=== PATIENT | female | born 1985 | race Two or more races ===

== ENCOUNTER 2020-06-20 12:01 | Outpatient (REF) | payer OTHER, SELFPAY | END 2020-06-20 12:02 | disposition home or self-care (01) | LOC: HO.LAB 12:01 | PROVIDERS: Visit Provider Internal Medicine | DX: Z20.822 Contact with and (suspected) exposure to COVID-19 (principal) | CPT/HCPCS: 36415; C9803; U0003; U0005 ==

== ENCOUNTER 2020-08-15 07:41 | Outpatient (REF) | payer OTHER, SELFPAY | END 2020-08-15 07:42 | disposition home or self-care (01) | LOC: HO.LAB 07:41 | PROVIDERS: Visit Provider Internal Medicine | DX: Z20.822 Contact with and (suspected) exposure to COVID-19 (principal) | CPT/HCPCS: 36415; C9803; U0003; U0005 ==

== ENCOUNTER 2020-09-28 09:10 | Outpatient (REF) | payer OTHER, SELFPAY ==
[2020-09-28 09:43] LABS: COVID-19 Test Negative (Negative); IDNOW Serial# 55D5AD1C
== END 2020-09-28 09:11 | disposition home or self-care (01) ==
LOC: HO.LAB 09:10
PROVIDERS: Visit Provider Internal Medicine
DX: Z20.822 Contact with and (suspected) exposure to COVID-19 (principal)
CPT/HCPCS: 36415; 87635; C9803

== ENCOUNTER 2020-11-15 09:02 | Outpatient (REF) | payer OTHER, SELFPAY ==
[2020-11-18 01:26] LABS: HPV mRNA E6/E7 rflx Not Detected (Not Detected)
== END 2020-11-15 09:03 | disposition home or self-care (01) ==
LOC: HO.LAB 09:02
PROVIDERS: Visit Provider Advanced Practice Midwife
DX: Z01.419 Encounter for gynecological examination (general) (routine) without abnormal findings (principal); Z11.51 Encounter for screening for human papillomavirus (HPV)
CPT/HCPCS: 87624; 88142

== ENCOUNTER 2022-08-03 09:51 | Outpatient (REF) | payer MEDICAID, SELFPAY | END 2022-08-03 09:52 | disposition home or self-care (01) | LOC: HO.HOSX 09:51 | PROVIDERS: Visit Provider Physician Assistant | DX: Z13.89 Encounter for screening for other disorder (principal) ==

== ENCOUNTER 2022-08-03 10:17 | Outpatient (REF) | payer MEDICAID, SELFPAY ==
[2022-08-03 14:00] LABS: CT PCR NOT DETECTED (Not Detect.); NG PCR NOT DETECTED (Not Detect.)
[2022-08-04 12:52] LABS: BV Int Neg Control Negative (Negative); BV Int Pos Control Positive (Positive)
== END 2022-08-03 10:18 | disposition home or self-care (01) ==
LOC: HO.LNP 10:17
PROVIDERS: Visit Provider Advanced Practice Midwife
DX: Z01.419 Encounter for gynecological examination (general) (routine) without abnormal findings (principal)
CPT/HCPCS: 0353U; 87480; 87510; 87660

== ENCOUNTER 2022-11-11 18:14 | Emergency (ER) | payer MEDICAID, SELFPAY ==
--- NOTE | ~2022-11-11 | XR_ITS ---
EXAMINATION: XR HAND, LEFT CLINICAL INFORMATION: Laceration left hand at base of second digit with marked bleeding COMPARISON: None available. TECHNIQUE: PA, lateral, and oblique views of the left hand. FINDINGS: The bones and soft tissues are normal. No fracture. Alignment is anatomic. Joint spaces are maintained. No erosions or soft tissue calcifications. XR/XR hand LT 2V IMPRESSION: Normal left hand.
[2022-11-11 18:54] VITALS: BP 115/82; PULSE 66; RESP 15; TEMP 36.6; O2SAT 100; BMI 24.6
--- NOTE | 2022-11-11 18:54 | ED.WOUNDLAC ---
HPI - Wound/Laceration General Chief Complaint: Wound/Laceration Stated Complaint: Stabbed left hand Time Seen by Provider: 11/11/22 23:40 Source: patient, RN notes reviewed and old records reviewed Mode of arrival: ambulatory Limitations: no limitations History of Present Illness HPI narrative: 37-year-old female presents for evaluation of a laceration to her left hand. Patient reports that she has attempted to cut a crab leg about 40 minutes prior to arrival Onset (ago): minute(s) Extremity Location: left: hand Place: home Patient tetanus UTD: Yes Context: accidental Associated symptoms: pain Treatments prior to arrival: bandage Related Data Home Medications Medication Instructions Recorded Confirmed No Known Home Meds 08/03/22 08/03/22 Allergies Allergy/AdvReac Type Severity Reaction Status Date / Time acetaminophen [From Percocet] Allergy Mild Stomach Verified 08/03/22 09:34 Upset oxycodone [From Percocet] Allergy Mild Stomach Verified 08/03/22 09:34 Upset Review of Systems Integumentary/Breasts: Comments: Laceration to back of left hand PMFSH Past Medical History Medical History (Updated 11/12/22 @ 00:17 by Berry Wiggins) Fibromyalgia Sjogren's disease Surgical History (Updated 08/03/22 @ 09:37 by YIFAN Quiroz) H/O tubal ligation Hx of section Hx of cosmetic surgery Social History Social History Alcohol intake: never Patient Tobacco Use Status: Never used Tobacco Smoked in Last 30 Days: No Use of substances other than those prescribed or required for medical reasons: No Advance Directives: No Advance Directives Information Provided: No Patient : No Gender identity: Female Physical Exam Vital Signs: Vital Signs: Last Vital Signs Temp 97.9 F 11/11/22 18:54 Pulse 66 11/11/22 18:54 Resp 15 11/11/22 18:54 BP 115/82 11/11/22 18:54 Pulse Ox 100 11/11/22 18:54 O2 Del Method Room Air 11/11/22 18:54 BMI result Body Mass Index 24.6 Const: General: healthy appearing, comfortable, no acute distress, alert and awake Nutritional Appearance: well nourished Orientation/consciousness: patient oriented x3 Eyes: Eyelids: Yes eyelids normal Conjunctivae: conjunctivae normal Sclerae: sclerae normal Corneas: corneas normal Pupils: Equal, round and reactive pupils present EOM: EOMs intact bilaterally Neck: Neck: Yes full ROM Resp: Effort & Inspection: normal respiratory effort, able to speak in complete sentences and not labored Skin: Other: Patient is a superficial, linear, partial thickness, 2 cm laceration to the dorsal surface of the left hand and between the web spacing of the 1st and 2nd fingers General skin exam: elasticity normal Neuro: General: patient oriented x3 Cranial nerves: Yes Equal, round and reactive pupils present and Yes Bilaterally intact EOM present Cognition (Neuro): normal cognition Course Course Course Narrative: This is an RME: Additional HPI, ROS, PE not included below will be deferred to primary provider. Patient is a 37-year-old female who presents emergency department for evaluation of a laceration. She sustained an accidental laceration to the left hand at the base of the 2nd digit, while using a knife to open a crab leg. Reports tetanus vaccination to be up-to-date within the last 5 years. Medical Decision Making Medical Decision Making MDM Narrative: Patient has a laceration that will require closure, the procedure note. X-ray shows no evidence of foreign body or bony injury. Procedures Laceration Laceration 1: Site: hand Side (If applicable): left (Hand ) Size (cm): 2 Description: linear Depth: simple, single layer Local Anesthetic: lidocaine 1% Amount of anesthesia used (mL): 2 Pre-repair: wound explored Skin layer closed with: nylon Size (cm): 5-0 Number of sutures: 4 Technique: simple, interrupted Discharge Plan Discharge Clinical Impression: Laceration of hand, left Patient Disposition: Home, Self-Care Instructions: Laceration (ED) Additional Instructions: You had 4 sutures placed today Your sutures can be removed in 7-10 days. Keep the area clean and dry You may apply topical antibiotic once daily Follow-up with your primary doctor Prescriptions: No Action No Known Home Meds Stand Alone Forms: Work/School Release
== END 2022-11-12 01:01 | disposition home or self-care (01) ==
PROVIDERS: Emergency Provider Internal Medicine; PCP Family Medicine
DX: S61.412A Laceration without foreign body of left hand, initial encounter (principal); M79.642 Pain in left hand; W26.9XXA Contact with unspecified sharp object(s), initial encounter; Y93.9 Activity, unspecified; Y92.9 Unspecified place or not applicable; Y99.9 Unspecified external cause status
CPT/HCPCS: 12001; 73120; 99284

== ENCOUNTER 2022-12-14 19:37 | Emergency (ER) | payer MEDICAID, SELFPAY ==
[2022-12-14] VITALS (7 sets, daily range): BP systolic 91–129; BP diastolic 53–74; PULSE 77–127; RESP 16–18; TEMP 36.8–36.9; O2SAT 96–100; BMI 24.8
--- NOTE | 2022-12-14 19:40 | ED.GENADULT ---
HPI - General Adult General Chief complaint: Allergic Reaction Stated complaint: bee sting Time Seen by Provider: 12/14/22 19:45 Related Data Previous Rx's Medication Instructions Recorded epinephrine 0.3 mg/0.3 mL 0.3 mg (0.3 mL) IM Q4H PRN 12/15/22 injection, auto-injector (EpiPen) anaphylaxis #2 ea Allergies Allergy/AdvReac Type Severity Reaction Status Date / Time acetaminophen [From Percocet] Allergy Mild Stomach Verified 12/14/22 19:41 Upset oxycodone [From Percocet] Allergy Mild Stomach Verified 12/14/22 19:41 Upset PMFSH Past Medical History Medical History Fibromyalgia Sjogren's disease Surgical History H/O tubal ligation Hx of section Hx of cosmetic surgery Social History Social History Alcohol intake: current Alcohol intake frequency: holidays/special occasions only Patient Tobacco Use Status: Never used Tobacco Smoked in Last 30 Days: No Use of substances other than those prescribed or required for medical reasons: No Advance Directives: No Advance Directives Information Provided: Yes Gender identity: Female Physical Exam ED Vital Signs: Vital Signs - 24 hr 12/14/22 19:39 12/14/22 19:47 12/14/22 20:01 Temperature 98.2 F 98.3 F Pulse Rate 127 H 85 85 Respiratory Rate 18 18 Blood Pressure 129/73 119/59 L Pulse Oximetry 97 100 Oxygen Delivery Method Room Air Room Air 12/14/22 20:00 12/14/22 21:07 12/14/22 22:43 Temperature 98.4 F 98.4 F 98.2 F Pulse Rate 92 97 85 Respiratory Rate 16 16 16 Blood Pressure 113/74 106/66 94/53 L Pulse Oximetry 98 98 97 Oxygen Delivery Method Room Air Room Air Room Air 12/14/22 23:35 12/15/22 00:16 12/15/22 00:17 Temperature 98.5 F Pulse Rate 77 72 89 Respiratory Rate 16 Blood Pressure 91/58 L 103/67 114/74 Pulse Oximetry 96 Oxygen Delivery Method Room Air 12/15/22 00:18 12/15/22 01:46 Temperature 98.2 F Pulse Rate 110 H 84 Respiratory Rate 16 Blood Pressure 102/57 L 108/62 Pulse Oximetry 97 Oxygen Delivery Method Room Air BMI result Body Mass Index 24.8 Course Course Course Narrative: This is a rapid medical exam: Additional HPI, ROS, PE not included below will be deferred to primary provider. Patient reports being stung by a bee prior to arrival approximately 20 mins prior to arrival. Diffuse hives, nausea and vomiting, lip swelling in triage. No prior history of anaphylaxis. 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 Dumont aware. Medications Administered Discontinued Medications Generic Name Dose Route Start Last Admin Trade Name Freq PRN Reason Stop Dose Admin Al Hydroxide/Mg Hydroxide 30 ml 12/14/22 21:24 12/14/22 21:33 Magnesium Hydrox/Alum Hydrox 30 Ml Oral.Susp PO 12/14/22 21:25 30 ml ONCE ONE Administration Diphenhydramine HCl 50 mg 12/14/22 19:45 12/14/22 19:50 Diphenhydramine Hcl 50 Mg/Ml Vial IVPUSH 12/14/22 19:46 50 mg ONCE ONE Administration Epinephrine 0.3 mg 12/14/22 19:45 12/14/22 19:47 Epinephrine 1 Mg/Ml Vial IM 12/14/22 19:46 0.3 mg STAT STA Administration Famotidine 20 mg 12/14/22 19:46 12/14/22 19:53 Famotidine/Pf 20 Mg/2 Ml Vial IVPUSH 12/14/22 19:47 20 mg ONCE ONE Administration Sodium Chloride 1,000 mls @ 999 mls/hr 12/14/22 19:46 12/14/22 21:00 Ns IVCONT 12/14/22 20:46 Infused .Q1H1M ONE Infusion Sodium Chloride 1,000 mls @ 999 mls/hr 12/15/22 00:22 12/15/22 00:41 Ns IVCONT 12/15/22 01:22 999 mls/hr .Q1H1M ONE Administration Lorazepam 1 mg 12/14/22 20:58 12/14/22 21:06 Lorazepam 2 Mg/Ml Vial IVPUSH 12/14/22 20:59 1 mg ONCE ONE Administration Methylprednisolone Sodium Succinate 125 mg 12/14/22 19:39 12/14/22 19:50 Methylprednisolone Sod Succ 125 Mg/2 Ml Vial IVPUSH 12/14/22 19:40 125 mg ONCE ONE Administration Ondansetron HCl 4 mg 12/15/22 00:22 12/15/22 00:41 Ondansetron Hcl 4 Mg/2 Ml Vial IVPUSH 12/15/22 00:23 4 mg ONCE ONE Administration Discharge Plan Discharge Clinical Impression: Anaphylaxis Patient Disposition: Home, Self-Care Instructions: Anaphylaxis (ED) Additional Instructions: Please follow-up with your primary care physician tomorrow. If you have any worsening or new symptoms, please return to the emergency room or call 911 Prescriptions: New epinephrine [EpiPen] 0.3 mg/0.3 mL auto-injector 0.3 mg IM Q4H PRN (Reason: anaphylaxis) Qty: 2 0RF Interventions: ED Discharge Assessment Last Done: 12/15/22 02:25 Discharge Date/Time: 12/15/22 02:00
[2022-12-14] MEDS: EPINEPHrine 1 MG/ML VIAL 0.3 MG IM (19:47)
--- NOTE | 2022-12-14 19:47 | ED_ITS ---
HPI - Allergic Reaction General Chief complaint: Allergic Reaction Stated complaint: bee sting Time Seen by Provider: 12/14/22 19:45 Source: patient Mode of arrival: ambulatory Limitations: no limitations History of Present Illness HPI narrative: Patient comes to the emergency room complaining of an allergic reaction. Earlier today, patient was stung in the toe by a bee. Patient complaining of severe hives, shortness of breath, lip swelling, nausea vomiting. Related Data Previous Rx's Medication Instructions Recorded epinephrine 0.3 mg/0.3 mL 0.3 mg (0.3 mL) IM Q4H PRN 12/15/22 injection, auto-injector (EpiPen) anaphylaxis #2 ea Allergies Allergy/AdvReac Type Severity Reaction Status Date / Time acetaminophen [From Percocet] Allergy Mild Stomach Verified 12/14/22 19:41 Upset oxycodone [From Percocet] Allergy Mild Stomach Verified 12/14/22 19:41 Upset Review of Systems Review of Systems: Constitutional : No Weight loss, No Fever, No Chills, No Night Sweats, ENT/Mouth : No Hearing loss, No Ear Pain, No Nasal Congestion, No Sinus Pain, No Hoarseness, No sore throat, No Rhinorrhea, No Swallowing Difficulty Eyes: No Eye Pain, No Swelling, No Redness, No Foreign Body, No Discharge, No Vision Changes Cardiovascular : No Chest Pain, no orthopnea, complaining of palpitations Respiratory : No Cough, No Sputum, No Wheezing, No Smoke Exposure, complaining of shortness of breath Gastrointestinal : Complaining of nausea vomiting No Diarrhea, No Constipation, No abdominal Pain, No Hematochezia, No Melena Genitourinary : no irregular bleeding, No Dysuria, No Urinary Frequency, No Hematuria, No Urinary Incontinence, No Urgency, No Flank Pain, No Urinary Flow Changes, No Hesitancy Musculoskeletal : No joint pain, No Myalgias, No Joint Swelling Skin : Complaining of diffuse hives Neuro : No Weakness, No Numbness, No Paresthesias, No Loss of Consciousness, No Dizziness, No Headache Psych : No Anxiety/Panic, No Depression, No SI/HI/AH/VH, No Social Issues, Heme/Lymph: No Bruising, No Bleeding,No Lymphadenopathy Endocrine : No Polyuria, No Polydipsia, No Temperature Intolerance PMFSH Past Medical History Medical History Fibromyalgia Sjogren's disease Surgical History H/O tubal ligation Hx of section Hx of cosmetic surgery Social History Social History Alcohol intake: current Alcohol intake frequency: holidays/special occasions only Patient Tobacco Use Status: Never used Tobacco Smoked in Last 30 Days: No Use of substances other than those prescribed or required for medical reasons: No Advance Directives: No Advance Directives Information Provided: Yes Gender identity: Female Physical Exam ED Vital Signs: Vital Signs - 24 hr 12/14/22 19:39 12/14/22 19:47 12/14/22 20:01 Temperature 98.2 F 98.3 F Pulse Rate 127 H 85 85 Respiratory Rate 18 18 Blood Pressure 129/73 119/59 L Pulse Oximetry 97 100 Oxygen Delivery Method Room Air Room Air 12/14/22 20:00 12/14/22 21:07 12/14/22 22:43 Temperature 98.4 F 98.4 F 98.2 F Pulse Rate 92 97 85 Respiratory Rate 16 16 16 Blood Pressure 113/74 106/66 94/53 L Pulse Oximetry 98 98 97 Oxygen Delivery Method Room Air Room Air Room Air 12/14/22 23:35 12/15/22 00:16 12/15/22 00:17 Temperature 98.5 F Pulse Rate 77 72 89 Respiratory Rate 16 Blood Pressure 91/58 L 103/67 114/74 Pulse Oximetry 96 Oxygen Delivery Method Room Air 12/15/22 00:18 Temperature Pulse Rate 110 H Respiratory Rate Blood Pressure 102/57 L Pulse Oximetry Oxygen Delivery Method BMI result Body Mass Index 24.8 Const Other: Appearance: Alert. Oriented X3. In moderate distress Eyes: Pupils equal, round and reactive to light. ENT: Upper and lower lip swelling, no tongue swelling, posterior oropharynx with no edema Neck: Normal inspection. Neck supple. No lymph nodes noted. No crepitus CVS: Normal heart rate and rhythm. Pulses normal. Normal S1 and S2 Respiratory: No respiratory distress. Breath sounds normal. No Wheezing. No rales Abdomen: Actively vomiting, Soft and nontender. No rigidity. No distention. Skin: Diffuse hives Extremities: No lower extremity edema. No Lacerations. No Rash Neuro: Oriented X 3. No motor deficit. No sensory deficit. Moving all extremities. No slurred speech. CN 2 through 12 grossly intact Psych: calm, cooperative Course Course Course Narrative: -on arrival, patient was given immediately IV fluids, IM epinephrine, IV Solu- Medrol, Pepcid and Benadryl Medications Administered Discontinued Medications Generic Name Dose Route Start Last Admin Trade Name Freq PRN Reason Stop Dose Admin Al Hydroxide/Mg Hydroxide 30 ml 12/14/22 21:24 12/14/22 21:33 Magnesium Hydrox/Alum Hydrox 30 Ml Oral.Susp PO 12/14/22 21:25 30 ml ONCE ONE Administration Diphenhydramine HCl 50 mg 12/14/22 19:45 12/14/22 19:50 Diphenhydramine Hcl 50 Mg/Ml Vial IVPUSH 12/14/22 19:46 50 mg ONCE ONE Administration Epinephrine 0.3 mg 12/14/22 19:45 12/14/22 19:47 Epinephrine 1 Mg/Ml Vial IM 12/14/22 19:46 0.3 mg STAT STA Administration Famotidine 20 mg 12/14/22 19:46 12/14/22 19:53 Famotidine/Pf 20 Mg/2 Ml Vial IVPUSH 12/14/22 19:47 20 mg ONCE ONE Administration Sodium Chloride 1,000 mls @ 999 mls/hr 12/14/22 19:46 12/14/22 21:00 Ns IVCONT 12/14/22 20:46 Infused .Q1H1M ONE Infusion Sodium Chloride 1,000 mls @ 999 mls/hr 12/15/22 00:22 12/15/22 00:41 Ns IVCONT 12/15/22 01:22 999 mls/hr .Q1H1M ONE Administration Lorazepam 1 mg 12/14/22 20:58 12/14/22 21:06 Lorazepam 2 Mg/Ml Vial IVPUSH 12/14/22 20:59 1 mg ONCE ONE Administration Methylprednisolone Sodium Succinate 125 mg 12/14/22 19:39 12/14/22 19:50 Methylprednisolone Sod Succ 125 Mg/2 Ml Vial IVPUSH 12/14/22 19:40 125 mg ONCE ONE Administration Ondansetron HCl 4 mg 12/15/22 00:22 12/15/22 00:41 Ondansetron Hcl 4 Mg/2 Ml Vial IVPUSH 12/15/22 00:23 4 mg ONCE ONE Administration Medical Decision Making Medical Decision Making [facility] Narrative: -after IV treatment, patient looks much better, the swelling in the lips completely disappeared, no angioedema, vitals stable, oxygen saturation 96% on room air. -discussed with the patient when to use EpiPen and to return to the emergency room she does so. Differential Diagnosis Differential Diagnoses: The differential diagnosis associated with the presentation includes (Allergic reaction, hypersensitivity reaction, urticaria) Admission/Observation Consideration of admission/observation: Escalation of care including admission/observation considered (Patient came in with a severe allergic reaction, admission was considered) Independent Interpretation I performed an independent interpretation of an: EKG (Normal sinus rhythm, heart rate 82, no ST segment depression or elevation, no T-wave inversion, QTC 443) Critical Care Time Critical Care Time Critical Care Time: Yes Total Critical Care Time: 60 Attestation: I have personally provided critical care time. Time includes review of lab data, radiology results, discussion with consultants, and monitoring for potential decompensation. Intervention performed as documented. Discharge Plan Discharge Clinical Impression: Anaphylaxis Patient Disposition: Home, Self-Care Instructions: Anaphylaxis (ED) Additional Instructions: Please follow-up with your primary care physician tomorrow. If you have any worsening or new symptoms, please return to the emergency room or call 911 Prescriptions: New epinephrine [EpiPen] 0.3 mg/0.3 mL auto-injector 0.3 mg IM Q4H PRN (Reason: anaphylaxis) Qty: 2 0RF
[2022-12-14] MEDS: 0.9 % Sodium Chloride 1,000 ML 999 ML IVCONT (19:50)
[2022-12-14] MEDS: methylPREDNISolone Sod Succ 125 MG/2 ML VIAL IVPUSH (19:50)
[2022-12-14] MEDS: diphenhydrAMINE HCL 50 MG/ML VIAL IVPUSH (19:50)
[2022-12-14] MEDS: Famotidine/PF 20 MG/2 ML VIAL IVPUSH (19:53)
--- NOTE | 2022-12-14 20:50 | ECG_ITS ---
Test Reason : CHEST PAIN Blood Pressure : / mmHG Vent. Rate : 082 BPM Atrial Rate : 082 BPM P-R Int : 188 ms QRS Dur : 090 ms QT Int : 380 ms P-R-T Axes : 050 024 029 degrees QTc Int : 443 ms Normal sinus rhythm Normal ECG When compared with ECG of 26-DEC-2017 15:50, Vent. rate has increased BY 28 BPM QT has lengthened Referred By: Aydee Dumont Electronically Signed By:RM RAMIREZ MD
[2022-12-14] MEDS: LORazepam 2 MG/ML VIAL 1 MG IVPUSH (21:06)
--- NOTE | 2022-12-14 21:30 | PC.NURSE ---
Patient reports burning epigastric chest pain. Dr. Dumont notified. EKG obtained, NSR. Patient noted to be anxious Lorazepam 1 mg IV and Maalox administered per MD's order. Hives rash resolved, lips swelling nearly gone. Patient denies difficulties swallowing, no tongue swelling noted. VSS.
[2022-12-14] MEDS: Magnesium Hydrox/Alum Hydrox 30 ML ORAL.SUSP PO (21:33)
--- NOTE | 2022-12-14 23:38 | MHC.EDTECH ---
ASHLEY PENA IS AWARE OF PATIENT LOW BP ,PATIENT ASKED FOR SOME JAY ANT AND ICE ,IT WAS GIVEN .
[2022-12-15 00:16] VITALS: BP 103/67; PULSE 72
[2022-12-15 00:17] VITALS: BP 114/74; PULSE 89
[2022-12-15 00:18] VITALS: BP 102/57; PULSE 110
[2022-12-15] MEDS: ondansetron HCL 4 MG/2 ML VIAL IVPUSH (00:41)
[2022-12-15] MEDS: 0.9 % Sodium Chloride 1,000 ML 999 ML IVCONT (00:41)
--- NOTE | 2022-12-15 00:44 | PC.NURSE ---
Medicated per Jul. Notified ASHLEY Wright
[2022-12-15 01:46] VITALS: BP 108/62; PULSE 84; RESP 16; TEMP 36.8; O2SAT 97
== END 2022-12-15 02:00 | disposition home or self-care (01) ==
PROVIDERS: Emergency Provider Emergency Medicine
DX: L50.0 Allergic urticaria (principal); R07.89 Other chest pain; Z79.899 Other long term (current) drug therapy
CPT/HCPCS: 93005; 96361; 96372; 96374; 96375; 99285; J0171; J1200; J2060; J2405; J2930

== ENCOUNTER → 2022-12-14 20:50 | Outpatient (BNV) | payer MEDICAID, SELFPAY | PROVIDERS: Emergency Provider Emergency Medicine; Visit Provider Internal Medicine Cardiovascular Disease | DX: R07.9 Chest pain, unspecified (principal) | CPT/HCPCS: 93010 ==

== ENCOUNTER 2023-01-17 11:09 | Outpatient (REF) | payer MEDICAID, SELFPAY ==
--- NOTE | ~2023-01-17 | US_ITS ---
EXAMINATION: US VENOUS ULTRASOUND WITH DOPPLER LOWER EXTREMITY, LEFT CLINICAL INFORMATION: Left leg pain. COMPARISON: None available. TECHNIQUE: Ultrasound of the deep veins is performed from the hip to the calf with compression sonography and color and pulse Doppler assessment. Spectral analysis with color-flow imaging is performed. FINDINGS: There is normal venous compression and respiratory variation and augmented flow. The visualized common femoral vein, superficial femoral vein, profunda femoral vein, popliteal vein, and the trifurcation region shows no evidence of deep venous thrombosis. Positive occlusive thrombus is seen in the left anterior calf superficial varicosity. Color Doppler showed no surrounding vascular flow. No left popliteal cyst. The subcutaneous soft tissues are unremarkable. US/US venous duplex LE LT IMPRESSION: 1. No evidence for deep venous thrombosis in the visualized veins of the left lower extremity. 2. Positive occlusive superficial thrombus in the left anterior calf varicosity. * If these findings persist or enlarge, short-term repeat targeted soft tissue ultrasound can be performed as clinically indicated to assess for change.
== END 2023-01-17 11:10 | disposition home or self-care (01) ==
LOC: HO.US 11:09
PROVIDERS: PCP Family Medicine; Visit Provider Family Medicine
DX: M79.605 Pain in left leg (principal); I83.812 Varicose veins of left lower extremity with pain
CPT/HCPCS: 93971

== ENCOUNTER 2023-01-29 08:34 | Emergency (ER) | payer MEDICAID, SELFPAY ==
--- NOTE | ~2023-01-29 | US_ITS ---
EXAMINATION: US VENOUS ULTRASOUND WITH DOPPLER LOWER EXTREMITY, LEFT CLINICAL INFORMATION: Increased pain and swelling. COMPARISON: 01/17/2023 TECHNIQUE: Ultrasound of the deep veins is performed from the hip to the calf with compression sonography and color and pulse Doppler assessment. Spectral analysis with color-flow imaging is performed. FINDINGS: The common femoral vein is compressible and exhibits a normal phasic waveform; this suggests that the iliac veins are widely patent above. Within the proximal thigh, the visualized profunda femoris vein is normal. The examined greater saphenous vein and saphenofemoral junction are normal. Superficial femoral vein is patent in the proximal, mid and distal thigh. Popliteal vein is normal to the level of the trifurcation. On compression lamar scale and color Doppler images, the visualized posterior tibial vein and peroneal vein are normal. Again noted is varicose vein in communication with the greater saphenous vein. This superficial vein has noncompressible occlusive thrombus as it travels medially below the level the knee to the proximal calf and anterior aspect of lower leg. No significant change compared to 01/17/2023. No evidence of Wilkerson's cyst. US/US venous duplex LE LT IMPRESSION: * No evidence of deep vein thrombosis in the left lower extremity. * No significant change in the thrombosed superficial vein of the left leg compared to 01/17/2023.
[2023-01-29 08:50] VITALS: BP 104/76; PULSE 91; RESP 16; TEMP 36.6; O2SAT 97; BMI 24.0
[2023-01-29 09:08] LABS: MANUAL DIFF FLAG NO
[2023-01-29 09:10] LABS: Basophils Percent Auto 0.6 % (0-2); Eosinophils Absolute Auto 0.2 X10*3/uL (0.0-0.4); Eosinophils Percent Auto 3.4 % (0-4); Hematocrit 36.6 % (37.0-47.0); Hemoglobin 11.8 g/dl (12.0-16.0); Imm Gran Abs Auto 0.01 X10*3/uL (0.00-0.03); Imm Gran Pct Auto 0.1 % (0.0-0.4); Lymphocytes Absolute Auto 1.3 X10*3/uL (1.2-4.9); Lymphocytes Percent Auto 19.4 % (20-40); Mean Corpuscular HGB Conc 32.2 g/dl (31.0-35.0); Mean Corpuscular Hemoglobin 26.8 pg (27.0-33.0); Mean Corpuscular Volume 83.2 fL (80.0-98.0); Mean Platelet Volume 10.7 fL (9.4-12.3); Monocytes Absolute Auto 0.5 X10*3/uL (0.1-1.2); Monocytes Percent Auto 7.6 % (2-11); Neutrophils Absolute Auto 4.7 x10*3/uL (2.0-8.3); Neutrophils Percent Auto 68.9 % (45-73); Platelet Count 277 X10*3/uL (160-400); Red Cell Distribution Width 15.4 % (11.0-16.0); White Blood Count 6.8 X10*3/uL (4.8-10.8)
[2023-01-29 09:19] LABS: Partial Thromboplastin Time 30.5 SEC (26.0-36.4)
[2023-01-29 09:24] LABS: Alanine Aminotransferase 10 U/L (0-31); Albumin Level 4.2 g/dL (3.5-5.0); Alkaline Phosphatase 53 U/L (39-117); Anion Gap 10 (12-20); Aspartate Amino Transferase 20 U/L (5-31); Bilirubin Total 0.5 mg/dL (0.0-1.0); Blood Urea Nitrogen 14 mg/dL (9-16); Calcium 9.1 mg/dL (8.4-10.2); Carbon Dioxide 26 mmol/L (22-29); Chloride 108 mmol/L (96-108); Creatinine Clr Calc Pharmacy 77.1; Estimated Glomerular Filt Rate > 60; Glucose Random 86 mg/dL (60-115); Sodium 140 mmol/L (135-145); Total Protein 7.7 g/dL (6.5-8.0)
--- OUTSIDE RECORDS SUMMARY | 2023-01-29 10:57 | XMS_ITS | Continuity of Care Document ---
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 Name Role Phone Vitaly Valdovinos MD Primary Care Physician [phone] Encounter [facility] Date(s): 01/28/23 - 01/28/[address] [address]- Discharge Disposition: A-D/C Walkout Attending Physician: Not on Staff, Attending MD Admitting Physician: Not on Staff, Admitting MD Referring Physician: Not on Staff, Referring MD Allergies, Adverse Reactions, Alerts Substance Reaction Severity Status Percocet 2.5/325 vomiting Active Duloxetine Active Immunizations Given and Recorded Vaccine Date Status Refusal Reason SARS-CoV-2 (COVID-19) mRNA BNT-162b2 vac 02/22/21 Recorded SARS-CoV-2 (COVID-19) mRNA BNT-162b2 vac 02/01/21 Recorded tetanus/diphtheria/pertussis, acel(Tdap) 10/03/17 Given Measles/Mumps/Rubella Virus Vaccine 1, 2 06/05/17 Given 1Early/Late Reason: Med Not Available 2Result Comment: Med and bracelet would not scan Medications ibuprofen 600 mg oral tablet 600 mg, 1, tablet, By Mouth, 4 times a day, PRN, # 40 tablet, Refills 0, Tot. Refills 0, Maintenance, for pain, 12/14/20 13:48:00 EDT, Route to Pharmacy Electronically, [facility]/pharmacy #[id number], Partial fill upon patient request if the prescription is for a... Start Date: 12/14/20 Status: Ordered Mobic 7.5 mg oral tablet 1 tablet = 7.5 mg, By Mouth, Daily, # 30 tablet, 2 Refills, Maintenance, 09/13/21 9:28:00 EDT, Tablet, [id number], Partial fill upon patient request if the prescription is for a schedule II opioid drug., 152, cm, 09/13/21 9:07:00 EDT, Height,... Start Date: 09/13/21 Status: Ordered Problem List Condition Confirmation Course Effective Dates Status Health St atus Informant Fibromyalgia Confirmed Active Idiopathic urticaria Confirmed Active Recurrent UTI Confirmed Active Sjogren's syndrome - sees ATC Confirmed Active Umbilical hernia without obstruction AND without gangrene Confirmed Active Vital Signs Most recent to oldest [Reference Range]: 1 2 Height 153 cm (01/28/23 5:38 PM) Weight 57.1 kg (01/28/23 5:38 PM) Oxygen Saturation [94-100 %] 100 % (01/28/23 5:38 PM) 95 % (01/28/23 5:35 PM) Pulse Rate [55-90 bpm] 58 bpm (01/28/23 5:38 PM) 64 bpm (01/28/23 5:35 PM) Body Mass Index [18.5-24.99 kg/m2] 24.39 kg/m2 (01/28/23 5:38 PM) Blood Pressure [90-138/55-84 mm Hg] 114/ 74mm Hg (01/28/23 5:38 PM) Respiratory Rate [16-30 br/min] 16 br/mi n (01/28/23 5:38 PM) Temperature [96.8-100.4 DegF] 98.4 DegF (01/28/23 5:38 PM) Mode of Delivery (Oxygen) Room air (01/28/23 5:38 PM) Room air (01/28/23 5:35 PM) Blood pressure sites Arm, left (01/28/23 5:38 PM) Temperature Route Oral (01/28/23 5:38 PM) Dry Weight 57.1 kg (01/28/23 5:38 PM) Weight Obtained Via Standing scale (01/28/23 5:38 PM) Dry Weight Obtained Via Standing scale (01/28/23 5:38 PM) Social History Social History Type Response Smoking Status Never (less than 100 in lifetime) entered on: 04/22/19 Sex Patient Care team information Care Team Personnel Name: Junaid Hall NP Position: [facility] Associate Professional Member Role: Lifetime Consulting Provider Address: Address: [address] [place] [id number] Name: Ashley Mayo RN Position: [facility] OB RN Member Role: Primary Care Nurse Name: Vitaly Valdovinos MD Position: [facility] Physician - Primary Care Member Role: PCP Address: Address: [address] [place] [id number]- Care Team Related Persons Name: NORMA WATSON Address: home [address] [place] [address] Name: NORMA WATSON Address: home [address] [place] [address]
--- NOTE | 2023-01-29 12:05 | ED_ITS ---
HPI - General Adult General Chief complaint: General Medical Stated complaint: DVT? Time Seen by Provider: 01/29/23 10:47 Source: patient Mode of arrival: ambulatory Limitations: no limitations History of Present Illness HPI narrative: 37 yo female with PMH of allergies noted L leg anterior redness, pain and swelling. She feels dizzy but no CP/SOB this has been going on since 01/16. She has US showing positive occlusive superficial thrombosis in left anterior calf vein she has been taking NSAIDs. She states she is not on hormones and has not had a clot before. She did travel back from [place] on Saturday but had symptoms prior to this. The redness around has increased but not extending above it. MD complaint: left leg pain Onset (ago): day(s) (01/16) Location: left and lower extremity Radiation: non-radiation Severity: moderate Quality: aching, dull and constant Pain Consistency: constant Relieving factors: immobilization Exacerbating factors: movement Associated symptoms: other (feels slightly dizzy) Treatments prior to arrival: NSAID Related Data Previous Rx's Medication Instructions Recorded epinephrine 0.3 mg/0.3 mL 0.3 mg (0.3 mL) IM Q4H PRN 12/15/22 injection, auto-injector (EpiPen) anaphylaxis #2 ea apixaban 5 mg (74 tabs) tablets in 5 mg PO BID #74 ea 01/29/23 a dose pack (Eliquis DVT-PE Treat 30D Start) Allergies Allergy/AdvReac Type Severity Reaction Status Date / Time acetaminophen [From Percocet] Allergy Mild Stomach Verified 01/29/23 08:50 Upset oxycodone [From Percocet] Allergy Mild Stomach Verified 01/29/23 08:50 Upset bee pollen [bee stings] AdvReac Shortness Verified 01/29/23 08:50 of Breath Review of Systems 2 Review of Systems: Constitutional : No Fever, No Chills ENT/Mouth : No Ear Pain, No Hoarseness, No sore throat Eyes: No Eye Pain, No Swelling, No Redness, No Foreign Body Cardiovascular : No Chest Pain, No SOB Respiratory : No Cough, No Dyspnea Gastrointestinal : No Nausea, No Vomiting, No Diarrhea, No abdominal Pain Genitourinary : No Dysuria, No Hematuria Musculoskeletal : positive joint pain, No Myalgias, No Joint Swelling Skin : No Skin lacerations, pos rash Neuro : No Weakness, No Numbness, No Loss of Consciousness, No Dizziness, No Headache Psych : No Anxiety/Panic, No Depression Heme/Lymph: no easy bruising, no Lymphadenopathy Endocrine : No Polyuria, No Polydipsia All other systems reviewed and are negative [facility] Past Medical History Attestation statement: The following information was validated with the patient. Medical History Sjogren's disease Fibromyalgia Surgical History H/O tubal ligation Hx of cosmetic surgery Hx of section Social History Social History Alcohol intake: current Alcohol intake frequency: holidays/special occasions only Patient Tobacco Use Status: Never used Tobacco Advance Directives: No Advance Directives Information Provided: Yes Gender identity: Female Physical Exam ED Vital Signs: Vital Signs - 24 hr 01/29/23 08:50 Temperature 97.9 F Pulse Rate 91 Respiratory Rate 16 Blood Pressure 104/76 Pulse Oximetry 97 BMI result Body Mass Index 24.0 Appearance: Alert. Oriented X3. No acute distress. Eyes: Pupils equal, round and reactive to light. ENT: Pharynx normal. Neck: Normal inspection. Neck supple. CVS: Normal heart rate and rhythm. Pulses normal. Respiratory: No respiratory distress. Breath sounds normal. Abdomen: Soft and non-tender. Skin: Skin warm and dry. Normal skin color. Normal skin turgor. Extremities: No lower extremity edema. left leg pain and swelling - ttp along medial aspect of proximal anterior calf - compartments are soft and compressible Neuro: Oriented X 3. No motor deficit. No sensory deficit. Course Course Course Narrative: given no change in US will DC home on eliquis given clot is superficial but in communication with [facility] clot likely greater than 5cm as well it is the entire calf Medications Administered Discontinued Medications Generic Name Dose Route Start Last Admin Trade Name Freq PRN Reason Stop Dose Admin Hydrocodone Bitart/Acetaminophen 1 tab 01/29/23 11:25 01/29/23 12:47 Hydrocodone Bit/Acetam 5/325 Tablet PO 01/29/23 11:26 1 tab ONCE ONE Administration Ondansetron HCl 4 mg 01/29/23 11:26 01/29/23 12:47 Ondansetron Odt 4 Mg Tab.Minda DICKEYINGOtis 01/29/23 11:27 4 mg ONCE ONE Administration Medical Decision Making Medical Decision Making MDM Narrative: 37 yo female with left leg pain recent superficial thrombophlebitis - she is very tender to touch on left anterior leg with mild erythema seems superficial will need basic labs, US to rule out DVT at this point - could be overlying infection. Will treat for pain. Differential Diagnosis Differential Diagnoses: The differential diagnosis associated with the presentation includes DVT, superficial thrombophlebitis Admission/Observation Consideration of admission/observation: Escalation of care including admission/observation considered labs normal, VS stable can be managed as outpaient Lab Data [facility] Lab Attestation statement: I reviewed the patient's lab results. 01/29/23 09:02 01/29/23 09:02 Labs: Lab Results 01/29/23 Range/Units 09:02 WBC 6.8 (4.8-10.8) X10*3/uL RBC 4.40 (4.20-5.50) X10*6/uL Hgb 11.8 L (12.0-16.0) g/dl Hct 36.6 L (37.0-47.0) % MCV 83.2 (80.0-98.0) fL MCH 26.8 L (27.0-33.0) pg MCHC 32.2 (31.0-35.0) g/dl RDW 15.4 (11.0-16.0) % Plt Count 277 (160-400) X10*3/uL MPV 10.7 (9.4-12.3) fL Immature Gran % (Auto) 0.1 (0.0-0.4) % Neut % (Auto) 68.9 (45-73) % Lymph % (Auto) 19.4 L (20-40) % Nelson % (Auto) 7.6 (2-11) % Eos % (Auto) 3.4 (0-4) % Baso % (Auto) 0.6 (0-2) % Lymph # (Auto) 1.3 (1.2-4.9) X10*3/uL Nelson # (Auto) 0.5 (0.1-1.2) X10*3/uL Eos # (Auto) 0.2 (0.0-0.4) X10*3/uL Baso # (Auto) 0.0 (0.0-0.2) X10*3/uL Abs Immat Gran (auto) 0.01 (0.00-0.03) X10*3/uL Absolute Neuts (auto) 4.7 (2.0-8.3) x10*3/uL Absolute Nucleated RBC 0.000 (0.0-0.012) X10*3/uL Nucleated RBC % (auto) 0.0 (0.0-0.2) /100WBC APTT 30.5 (26.0-36.4) SEC Sodium 140 (135-145) mmol/L Potassium 4.0 (3.3-5.1) mmol/L Chloride 108 (96-108) mmol/L Carbon Dioxide 26 (22-29) mmol/L Anion Gap 10 L (12-20) BUN 14 (9-16) mg/dL Creatinine 0.79 (0.5-1.4) mg/dL Estim Creat Clear Calc 77.1 Estimated GFR > 60 Random Glucose 86 (60-115) mg/dL Calcium 9.1 (8.4-10.2) mg/dL Total Bilirubin 0.5 (0.0-1.0) mg/dL AST 20 (5-31) U/L ALT 10 (0-31) U/L Alkaline Phosphatase 53 (39-117) U/L Total Protein 7.7 (6.5-8.0) g/dL Albumin 4.2 (3.5-5.0) g/dL Independent Interpretation I performed an independent interpretation of an: Ultrasound (no DVT) Radiology Impression Discussion of test interpretation with radiology: I have reviewed the radiologist's reading. External Record Review External record reviewed: Prior outpatient radiology Prescription Management I considered prescription management with: Other (eliquis) Discharge Plan Discharge Clinical Impression: Left leg pain Superficial thrombophlebitis Qualifiers: Superficial thrombophlebitis-Involved body area: lower extremity Laterality: l eft Qualified Code(s): I80.02 - Phlebitis and thrombophlebitis of superficial vessels of left lower extremity Patient Disposition: Home, Self-Care Instructions: Apixaban (By mouth), Superficial Thrombophlebitis (ED), Leg Pain (ED) Additional Instructions: you can take tylenol for pain but that is it. no motrin, ibuprofen, aleve or naprosyn. if you have bleeding or hit your head please seek immediate care. concern is that no improvement in clot and you also have the superficial clot near a deep vein that is why we are starting thinners please follow up with your doctor this week. Prescriptions: New Eliquis DVT-PE Treat 30D Start 5 mg (74 tabs) tablets,dose pack 5 mg PO BID Qty: 74 0RF Rx Instructions: started pack No Action epinephrine [EpiPen] 0.3 mg/0.3 mL auto-injector 0.3 mg IM Q4H PRN (Reason: anaphylaxis) Qty: 2 0RF Stand Alone Forms: Work/School Release
[2023-01-29] MEDS: Ondansetron ODT 4 MG TAB.RAPDIS TRANSLINGU (12:47)
[2023-01-29] MEDS: HYDROcodone Bit/Acetam 5/325 TABLET 1 TAB PO (12:47)
== END 2023-01-29 13:33 | disposition home or self-care (01) ==
PROVIDERS: Emergency Medicine; Emergency Provider Student in an Organized Health Care Education/Training Program; PCP Family Medicine
DX: I80.02 Phlebitis and thrombophlebitis of superficial vessels of left lower extremity (principal); M79.605 Pain in left leg
CPT/HCPCS: 36415; 80053; 85025; 85730; 93971; 99283; 99284

== ENCOUNTER 2023-02-01 10:12 | Outpatient (REF) | payer MEDICAID, SELFPAY ==
[2023-02-01 11:29] LABS: MANUAL DIFF FLAG NO
[2023-02-01 11:43] LABS: Basophils Percent Auto 0.4 % (0-2); Eosinophils Absolute Auto 0.1 X10*3/uL (0.0-0.4); Eosinophils Percent Auto 1.3 % (0-4); Hemoglobin 11.4 g/dl (12.0-16.0); Imm Gran Abs Auto 0.03 X10*3/uL (0.00-0.03); Imm Gran Pct Auto 0.4 % (0.0-0.4); Lymphocytes Absolute Auto 1.3 X10*3/uL (1.2-4.9); Mean Corpuscular HGB Conc 31.7 g/dl (31.0-35.0); Mean Corpuscular Hemoglobin 26.7 pg (27.0-33.0); Mean Corpuscular Volume 84.3 fL (80.0-98.0); Mean Platelet Volume 10.7 fL (9.4-12.3); Monocytes Absolute Auto 0.6 X10*3/uL (0.1-1.2); Monocytes Percent Auto 7.7 % (2-11); Neutrophils Absolute Auto 5.1 x10*3/uL (2.0-8.3); Neutrophils Percent Auto 72.2 % (45-73); Platelet Count 254 X10*3/uL (160-400); Red Blood Count 4.27 X10*6/uL (4.20-5.50); Red Cell Distribution Width 15.8 % (11.0-16.0); White Blood Count 7.1 X10*3/uL (4.8-10.8)
[2023-02-01 15:33] LABS: Alanine Aminotransferase 10 U/L (0-31); Albumin Level 4.2 g/dL (3.5-5.0); Alkaline Phosphatase 50 U/L (39-117); Anion Gap 11 (12-20); Aspartate Amino Transferase 21 U/L (5-31); Bilirubin Total 0.4 mg/dL (0.0-1.0); Blood Urea Nitrogen 11 mg/dL (9-16); Calcium 9.2 mg/dL (8.4-10.2); Carbon Dioxide 27 mmol/L (22-29); Chloride 106 mmol/L (96-108); Estimated Glomerular Filt Rate > 60; Glucose Random 62 mg/dL (60-115); Iron 48 mcg/dL (30-160); Percent Iron Saturation 15 % (15-50); Sodium 140 mmol/L (135-145); Total Iron Binding Capacity 320 mcg/dL (228-428); Total Protein 7.5 g/dL (6.5-8.0); Unsaturated Iron Binding 272 ug/dL
[2023-02-01 15:38] LABS: Ferritin 15 ng/mL (10-122); TSH reflex Free T4 1.27 uIU/mL (0.32-4.0)
== END 2023-02-01 10:13 | disposition home or self-care (01) ==
LOC: HO.HHCL 10:12
PROVIDERS: Visit Provider Registered Nurse
DX: R42 Dizziness and giddiness (principal)
CPT/HCPCS: 36415; 80053; 82728; 83540; 84443; 85025

== ENCOUNTER 2023-02-18 10:47 | Emergency (ER) | payer MEDICAID, SELFPAY ==
--- NOTE | 2023-02-18 11:28 | ED.GENADULT ---
HPI - General Adult General Chief complaint: General Medical Stated complaint: Abd pain/Diarrhea Time Seen by Provider: 02/18/23 12:24 Source: patient Mode of arrival: ambulatory Limitations: no limitations History of Present Illness HPI narrative: 37 year old female with a PMHx significant for DVT on Eliquis (diagnosed 01/29/23), fibromyalgia, and Sjogren's disease presenting to the ED today with a complaint of headache, chills, nonproductive cough, nausea/vomiting, diarrhea and stomach ache x5 days. Reports five episodes of nonbloody vomiting over the last few days. Admits to upper abdominal pain upon vomiting. Has not take any medications for this at home. 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 She denies fever, vision changes, sore throat, chest pain, shortness of breath, hematemesis, hematochezia, melena, dysuria, or hematuria. Related Data Previous Rx's Medication Instructions Recorded epinephrine 0.3 mg/0.3 mL 0.3 mg (0.3 mL) IM Q4H PRN 12/15/22 injection, auto-injector (EpiPen) anaphylaxis #2 ea apixaban 5 mg (74 tabs) tablets in 5 mg PO BID #74 ea 01/29/23 a dose pack (Eliquis DVT-PE Treat 30D Start) qpujhqygfp-rclswzjdcizhc-jcekwvyi 2 cap PO Q8H PRN pain (scale score 02/18/23 50 mg-300 mg-40 mg capsule 4-6) #10 caps (Fioricet) ondansetron 4 mg disintegrating 4 mg PO DAILY PRN nausea and 02/18/23 tablet vomiting 5 days #7 tabs Allergies Allergy/AdvReac Type Severity Reaction Status Date / Time oxycodone [From Percocet] Allergy Mild Stomach Verified 01/29/23 08:50 Upset bee pollen [bee stings] AdvReac Shortness Verified 01/29/23 08:50 of Breath Review of Systems Review of Systems: Constitutional: No fever, + chills, fatigue, No night sweats, weight changes ENT/Mouth: No ear pain, hearing loss, nasal congestion, sinus pain, rhinorrhea, sore throat Eyes: No eye pain, swelling, redness, vision changes, discharge Cardio: No chest pain, palpitations, PARNELL, orthopnea, peripheral edema Pulm: No SOB, + cough, No sputum, wheezing, dyspnea, hemoptysis GI: + nausea, + vomiting, No hematemesis, +abdominal pain, + diarrhea, No constipation, hematochezia, melena : No irregular bleeding, dysuria, frequency, urgency, hesitancy, hematuria, flank pain, urinary flow changes, urinary incontinence or retention MSK: No back pain, neck pain, joint pain, myalgias Skin: No lesions, rashes Neuro: No weakness, numbness, paresthesias, LOC, dizziness, + headache All other systems reviewed and are negative. [facility] Past Medical History Attestation statement: The following information was validated with the patient. Source: old records reviewed and nursing notes reviewed Medical History Sjogren's disease Fibromyalgia Surgical History H/O tubal ligation Hx of cosmetic surgery Hx of section Social History Social History Alcohol intake: current Alcohol intake frequency: holidays/special occasions only Patient Tobacco Use Status: Never used Tobacco Smoked in Last 30 Days: No Use of substances other than those prescribed or required for medical reasons: No Advance Directives: No Gender identity: Female Physical Exam ED Vital Signs: Vital Signs - 24 hr 02/18/23 11:29 Temperature 99.9 F Pulse Rate 80 Respiratory Rate 16 Blood Pressure 101/68 Pulse Oximetry 98 Oxygen Delivery Method Room Air BMI result Body Mass Index 24.0 Vital signs stable. Const Other: Lying in bed eating a bowl of soup. General: cooperative, no acute distress, alert and awake Orientation/consciousness: patient oriented x3 Limitations: no limitations HENMT Other: Posterior oropharynx without erythema or exudates. No tonsillar exudates. Uvula midline. Speaking in full sentences. Controlling secretions Head: Yes normal to inspection Ears: hearing grossly normal bilaterally General nose exam: Normal external nose present Eyes General: appearance normal, both eyes and all related structures Conjunctivae: conjunctivae normal Sclerae: sclerae normal Corneas: corneas normal Pupils: Equal, round and reactive pupils present EOM: EOMs intact bilaterally Neck Neck: Yes normal visual inspection, Yes full ROM, Yes no lymphadenopathy, Yes no meningeal signs, No positive Brudzinski's sign and No positive Kernig's sign Chest Chest palpation & inspection: normal inspection of the chest and normal palpation of entire chest wall Resp Effort & Inspection: normal respiratory effort and able to speak in complete sentences Auscultation: clear to auscultation bilaterally, no crackles, no rales, no rhonchi and no wheezes Cardio Rate: regular rate Rhythm: regular rhythm Heart sounds: S1 normal heart sound present and S2 normal heart sound present Peripheral pulses: Peripheral pulses 2+ throughout GI Other: Vertical scar noted to lower abdomen. Abdomen soft, nondistended, not tender to palpation. No rebound tenderness or guarding. Normoactive bowel sounds throughout. Negative Rovsing sign and McBurney point tenderness. Negative Sarmiento sign. Liver and spleen not palpable. Inspection: No abdominal wall ecchymosis Rectal Exam - Female: deferred General: Yes no CVA tenderness Back/Spine/Pelvis Back: no CVA tenderness Skin General skin exam: no rashes or lesions noted Neuro General: patient oriented x3, gait normal, moves all extremities and no meningeal signs Cranial nerves: Yes CN's II-XII intact bilaterally, Yes Equal, round and reactive pupils present and Yes Bilaterally intact EOM present Extrem General: Yes normal to inspection, Yes full ROM, Yes capillary refill normal and Yes no clubbing, cyanosis or edema Course Course Course Narrative: This is an RME: Additional HPI, ROS, PE not included below will be deferred to primary provider. This is a 51-sr[age]g-xnu-female, hx of DVT on eliquis (diagnosed on 01/29/23), fibromylagia, sjogren's disease, presenting to the emergency department with a complaint of headache, dry cough, stomachache, nausea, vomiting, diarrhea, chills since (02/14/23). 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 Vomiting and diarrhea started last night. No sore throat. Plan: Labs, u preg, COVID/RSV/Flu Reevaluation(s) Reevaluation #1: 1252-- CBC without leukocytosis. Chemistry without acute electrolyte abnormalities requiring intervention. Lipase WNL. Serology negative for influenza, COVID, RSV. > patient complaining of nausea and a headache. Fioricet and Zofran ordered. IVF ordered. Pending re-evaluation. 1415-- On re-evaluation patient states that her headache has improved with Fioricet. Additionally her nausea has improved with Zofran. She is continuing to eat soup. Has not vomited in ED. as patient's labs and serology are unremarkable and patient reported symptom improvement with medications, this is likely viral syndrome. Will send patient home with Zofran and Fioricet. Discussed strict return precautions. All questions answered at this time. Patient agreeable with disposition. Stable for discharge. Medications Administered Discontinued Medications Generic Name Dose Route Start Last Admin Trade Name Freq PRN Reason Stop Dose Admin Acetaminophen/Butalbital/Caffeine 1 tab 02/18/23 13:05 02/18/23 13:33 Butalb/Acetamin/Caff 50/325/40 Tablet PO 02/18/23 13:06 1 tab ONCE ONE Administration Sodium Chloride 1,000 mls @ 999 mls/hr 02/18/23 13:15 02/18/23 13:25 Ns IV 02/18/23 14:15 999 mls/hr .Q1H1M JOSEPH Administration Ondansetron HCl 4 mg 02/18/23 13:05 02/18/23 13:33 Ondansetron Hcl 4 Mg/2 Ml Vial IVPUSH 02/18/23 13:06 4 mg ONCE ONE Administration Medical Decision Making Medical Decision Making MDM Narrative: 37 year old female with a PMHx significant for DVT on Eliquis (diagnosed 01/29/23), fibromyalgia, and Sjogren's disease presenting to the ED today with a complaint of headache, chills, nonproductive cough, nausea/vomiting, diarrhea and stomach ache x5 days. Vital signs with low-grade temp of 99.9?. Not tachycardic or hypoxic. Nontoxic appearing in no acute distress. B/l EACs without injection. B/l TMs intact, no bulging, erythema, or effusion. No mastoid tenderness. Moist mucous membranes. Posterior oropharynx without erythema or exudates. Uvula midline. Speaking complete sentences. Controlling secretions. Lungs CTA bilaterally. Abdomen soft, nontender, nondistended, no rebound or guarding. Normoactive bowel sounds throughout. Clinical concern for COVID vs RSV vs viral syndrome. Clinical concern for otitis media vs otitis externa. Low suspicion for strep throat, [employer], retropharyngeal abscess. Unlikely pneumonia. Low suspicion for pancreatitis, cholecystitis or appendicitis. Unlikely diverticulosis/itits, ischemic bowel, SBO, for acute abdomen. Unlikely meningitis/encephalitis, ICH vs CVA/TIA vs cerebellar stroke. Differential Diagnosis Differential Diagnoses: The differential diagnosis associated with the presentation includes As above. Admission/Observation Not indicated. Lab Data MDM Lab Attestation statement: I reviewed the patient's lab results. As above. 02/18/23 11:44 02/18/23 11:44 Labs: Lab Results 02/18/23 Range/Units 11:44 WBC 7.9 (4.8-10.8) X10*3/uL RBC 4.17 L (4.20-5.50) X10*6/uL Hgb 11.1 L (12.0-16.0) g/dl Hct 34.8 L (37.0-47.0) % MCV 83.5 (80.0-98.0) fL MCH 26.6 L (27.0-33.0) pg MCHC 31.9 (31.0-35.0) g/dl RDW 15.6 (11.0-16.0) % Plt Count 294 (160-400) X10*3/uL MPV 10.8 (9.4-12.3) fL Immature Gran % (Auto) 0.3 (0.0-0.4) % Neut % (Auto) 84.6 H (45-73) % Lymph % (Auto) 8.3 L (20-40) % Robertson % (Auto) 5.2 (2-11) % Eos % (Auto) 1.1 (0-4) % Baso % (Auto) 0.5 (0-2) % Lymph # (Auto) 0.7 L (1.2-4.9) X10*3/uL Robertson # (Auto) 0.4 (0.1-1.2) X10*3/uL Eos # (Auto) 0.1 (0.0-0.4) X10*3/uL Baso # (Auto) 0.0 (0.0-0.2) X10*3/uL Abs Immat Gran (auto) 0.02 (0.00-0.03) X10*3/uL Absolute Neuts (auto) 6.6 (2.0-8.3) x10*3/uL Absolute Nucleated RBC 0.000 (0.0-0.012) X10*3/uL Nucleated RBC % (auto) 0.0 (0.0-0.2) /100WBC Sodium 140 (135-145) mmol/L Potassium 3.8 (3.3-5.1) mmol/L Chloride 110 H (96-108) mmol/L Carbon Dioxide 22 (22-29) mmol/L Anion Gap 12 (12-20) BUN 11 (9-16) mg/dL Creatinine 0.77 (0.5-1.4) mg/dL Estim Creat Clear Calc 79.1 Estimated GFR > 60 Random Glucose 90 (60-115) mg/dL Calcium 9.3 (8.4-10.2) mg/dL Magnesium 1.8 (1.6-2.6) mg/dL Total Bilirubin 0.4 (0.0-1.0) mg/dL Direct Bilirubin 0.2 (0.0-0.5) mg/dL AST 17 (5-31) U/L ALT 9 (0-31) U/L Alkaline Phosphatase 47 (39-117) U/L Total Protein 7.3 (6.5-8.0) g/dL Albumin 4.0 (3.5-5.0) g/dL Lipase 21 (8-78) U/L Influenza Type A (PCR) NEGATIVE (Negative) Influenza Type B (PCR) NEGATIVE (Negative) RSV RNA Qual (PCR) NEGATIVE (Negative) SARS-CoV-2 RNA (RT-PCR) NEGATIVE (Negative) External Record Review External record reviewed: Inpatient record, Office record, Outpatient record, Prior outpatient labs, Prior outpatient radiology, Primary care record and Outside ED record Prescription Management I considered prescription management with: Pain Medication and Other (antiemetic) Chronic Conditions Patient?s care impacted by: Other (DVT) Critical Care Time Critical Care Time Critical Care Time: No Discharge Plan Discharge Clinical Impression: Viral syndrome Patient Disposition: Home, Self-Care Instructions: Viral Syndrome (ED) Additional Instructions: Today you tested negative for COVID, flu and RSV. Your lab work is reassuring. Your symptoms are most consistent with a viral syndrome.? Fioricet has been sent to your pharmacy. Take this as needed for headaches. Zofran is an anti nausea medication that has been sent to your pharmacy. Take this as needed for nausea. Practice good hand hygiene. Drink plenty of fluids and get plenty of rest. Follow-up with your primary care provider this week. Return to the emergency department with new or worsening symptoms. In case of emergency call 911 Prescriptions: New dfllpozezj-gzeyfxcisiekg-jxol [Fioricet] 50-300-40 mg capsule 2 cap PO Q8H PRN (Reason: pain (scale score 4-6)) Qty: 10 0RF Rx Instructions: do not exceed 6 caps per day ondansetron 4 mg tablet,disintegrating 4 mg PO DAILY PRN (Reason: nausea and vomiting) 5 Days Qty: 7 0RF No Action epinephrine [EpiPen] 0.3 mg/0.3 mL auto-injector 0.3 mg IM Q4H PRN (Reason: anaphylaxis) Qty: 2 0RF Eliquis DVT-PE Treat 30D Start 5 mg (74 tabs) tablets,dose pack 5 mg PO BID Qty: 74 0RF Rx Instructions: started pack Referrals: Mai Mcclain MD [Primary Care Provider] - Stand Alone Forms: Work/School Release Interventions: ED Discharge Assessment Last Done: 02/18/23 14:45 Discharge Date/Time: 02/18/23 14:45
[2023-02-18 11:29] VITALS: BP 101/68; PULSE 80; RESP 16; TEMP 37.7; O2SAT 98; BMI 24.0
[2023-02-18 11:49] LABS: MANUAL DIFF FLAG NO
[2023-02-18 11:58] LABS: Basophils Percent Auto 0.5 % (0-2); Eosinophils Absolute Auto 0.1 X10*3/uL (0.0-0.4); Eosinophils Percent Auto 1.1 % (0-4); Hematocrit 34.8 % (37.0-47.0); Hemoglobin 11.1 g/dl (12.0-16.0); Imm Gran Abs Auto 0.02 X10*3/uL (0.00-0.03); Imm Gran Pct Auto 0.3 % (0.0-0.4); Lymphocytes Absolute Auto 0.7 X10*3/uL (1.2-4.9); Lymphocytes Percent Auto 8.3 % (20-40); Mean Corpuscular HGB Conc 31.9 g/dl (31.0-35.0); Mean Corpuscular Hemoglobin 26.6 pg (27.0-33.0); Mean Corpuscular Volume 83.5 fL (80.0-98.0); Mean Platelet Volume 10.8 fL (9.4-12.3); Monocytes Absolute Auto 0.4 X10*3/uL (0.1-1.2); Monocytes Percent Auto 5.2 % (2-11); Neutrophils Absolute Auto 6.6 x10*3/uL (2.0-8.3); Neutrophils Percent Auto 84.6 % (45-73); Platelet Count 294 X10*3/uL (160-400); Red Blood Count 4.17 X10*6/uL (4.20-5.50); Red Cell Distribution Width 15.6 % (11.0-16.0); White Blood Count 7.9 X10*3/uL (4.8-10.8)
[2023-02-18 12:08] LABS: Alanine Aminotransferase 9 U/L (0-31); Alkaline Phosphatase 47 U/L (39-117); Anion Gap 12 (12-20); Aspartate Amino Transferase 17 U/L (5-31); Bilirubin Direct 0.2 mg/dL (0.0-0.5); Bilirubin Total 0.4 mg/dL (0.0-1.0); Blood Urea Nitrogen 11 mg/dL (9-16); Calcium 9.3 mg/dL (8.4-10.2); Carbon Dioxide 22 mmol/L (22-29); Chloride 110 mmol/L (96-108); Creatinine Clr Calc Pharmacy 79.1; Estimated Glomerular Filt Rate > 60; Glucose Random 90 mg/dL (60-115); Lipase 21 U/L (8-78); Magnesium 1.8 mg/dL (1.6-2.6); Potassium 3.8 mmol/L (3.3-5.1); Sodium 140 mmol/L (135-145); Total Protein 7.3 g/dL (6.5-8.0)
[2023-02-18 12:27] LABS: Influenza A PCR NEGATIVE (Negative); Influenza B PCR NEGATIVE (Negative); Resp Syncy Virus RNA Qual PCR NEGATIVE (Negative); SARS COV2 PCR INHOUSE NEGATIVE (Negative)
[2023-02-18] MEDS: 0.9 % Sodium Chloride 1,000 ML 999 ML IV (13:25)
[2023-02-18] MEDS: ondansetron HCL 4 MG/2 ML VIAL IVPUSH (13:33)
[2023-02-18] MEDS: Butalb/Acetamin/Caff 50/325/40 TABLET 1 TAB PO (13:33)
--- NOTE | 2023-02-18 13:38 | PC.NURSE ---
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 20 G IV placed left hand, 1L NS running, medicated per JUL.
== END 2023-02-18 14:45 | disposition home or self-care (01) ==
PROVIDERS: Physician Assistant Medical; Emergency Provider Emergency Medicine; PCP Family Medicine
DX: B34.9 Viral infection, unspecified (principal); R51.9 Headache, unspecified; R05.9 Cough, unspecified; R11.2 Nausea with vomiting, unspecified; R10.9 Unspecified abdominal pain; Z20.822 Contact with and (suspected) exposure to COVID-19; Z20.828 Contact with and (suspected) exposure to other viral communicable diseases; Z79.899 Other long term (current) drug therapy; Z86.718 Personal history of other venous thrombosis and embolism; Z79.01 Long term (current) use of anticoagulants
CPT/HCPCS: 0241U; 36415; 80048; 80076; 83690; 83735; 85025; 96372; 99284; J2405

== ENCOUNTER 2023-03-12 13:20 | Outpatient (AMB) | payer MEDICAID, SELFPAY ==
--- NOTE | 2023-03-12 13:26 | A.OFFVIS_ITS ---
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 Complaints include pain over varicosities, swelling of lower extremities, cramping, fatigue, and heaviness of the lower extremities. It has been affecting there daily activities including working. It is noted more so in right leg. She actually presented to the emergency room with an episode of superficial thrombophlebitis. She has been treated with Eliquis for this. Patient denies any previous venous surgery or injections. Patient denies any history of DVT/ PE. She has no personal history but has a grandmother with prior history of DVTs and venous disease. Patient denies any history of phlebitis. Trial of compression includes - [id number] They now present for vascular evaluation regarding their varicose veins. [facility] Medical History Sjogren's disease Fibromyalgia Surgical History H/O tubal ligation Hx of cosmetic surgery Hx of section Social History Alcohol intake: current Alcohol intake frequency: holidays/special occasions only Patient Tobacco Use Status: Never used Tobacco Gender identity: Female Female Reproductive History Menstrual Age of Menarche: 14 Review of Systems Const Reports as per HPI ENT Reports no additional complaints Card Denies chest pain, Denies chest pain at rest and Denies chest pain with activity Resp Denies chest congestion and Denies cough GI Reports no additional complaints Musc Details: pain over varicosities, aching of lower extremities, swelling, cramping, heaviness and tiredness, itching Denies abnormal gait Skin/Breast Reports pruritus and Denies wounds Neuro Reports no additional complaints and Denies abnormal gait Psych Denies no additional complaints Physical Exam Vital Signs: BMI result Body Mass Index 22.1 Const General: cooperative, healthy appearing and comfortable Orientation/consciousness: oriented to person, oriented to place and oriented to time Neck Carotids: no bruits Chest Chest palpation & inspection: normal inspection of the chest and normal palpation of entire chest wall Resp Effort & Inspection: normal respiratory effort and able to speak in complete sentences Cardio Rate: regular rate Heart sounds: S1 normal heart sound present and S2 normal heart sound present Peripheral pulses: Peripheral pulses 2+ throughout GI Inspection: Yes normal to inspection Skin Other: +2 edema, multiple spider telangiectasias CEAP Classification C4 - skin color changes Ep - Etiology Primary As - superficial veins P - reflux General skin exam: dry skin Neuro General: oriented to person, oriented to place and oriented to time Extrem Right lower extremity: full ROM, normal capillary refill and edema Left lower extremity: full ROM, normal capillary refill and edema Psych Mental Status: mental status grossly normal Assessment & Plan Assessment & Plan (1) Varicose veins of right lower extremity with inflammation: Code(s): I83.11 - Varicose veins of right lower extremity with inflammation Plan: In short, the patient has evidence of venous insufficiency. I have discussed the pathophysiology with the patient. In addition I have provided informational material regarding venous disease to the patient. We have discussed conservative measures including compression, elevation, and exercise. I have also provided a handout regarding appropriate use of compression stockings and where to purchase good compression stockings as well. I have taken the liberty of ordering venous insufficiency testing with the patient. They will follow up with me after testing. Ultrasound was reviewed and no further need for Eliquis is required The patient had an opportunity to ask questions regarding the treatment plan. All questions were answered. Imaging studies, laboratory studies and physical exam results were discussed and reviewed in detail. No major barriers to understanding were identified. The patient expressed understanding and agreement with the above treatment plan. The patient is aware they should contact our office by phone for worsening of the current condition or the appearance of new symptoms. Thank you for allowing me to participate in the vascular care of this patient. If you have any questions or concerns regarding the treatment for the above condition please do not hesitate to contact me. The office telephone contact is [phone]. This note is constructed using voice recognition software. While every effort has been made to ensure accuracy, microelectronics assembler errors may have been included. Thank you for allowing me to participate in the care of your patient. Yours sincerely, Mando Hernandez MD, FACS, R.P.V.I. Orders: Orders US venous duplex LE BI 1 Week I83.11 - Varicose veins of right lower extremity with inflammation Coding Level of Care Code New Pt Level 4 (83807) Diagnoses Varicose veins of right lower extremity with inflammation I83.11
[2023-03-12 13:37] VITALS: BMI 22.1
== END 2023-03-12 14:06 | disposition home or self-care (01) ==
PROVIDERS: PCP Family Medicine; Visit Provider Surgery Vascular Surgery
DX: I83.11 Varicose veins of right lower extremity with inflammation (principal)
CPT/HCPCS: 99203

== ENCOUNTER → 2023-03-12 13:20 | Outpatient (BNVA) | payer MEDICAID, SELFPAY | PROVIDERS: PCP Family Medicine; Visit Provider Surgery Vascular Surgery ==

== ENCOUNTER 2023-03-20 08:26 | Outpatient (REF) | payer MEDICAID, SELFPAY ==
--- NOTE | ~2023-03-20 | US_ITS ---
EXAMINATION: RIGHT and LEFT LOWER EXTREMITY VENOUS ULTRASOUND (Reflux Exam) CLINICAL INDICATION: Varicose veins COMPARISON: Ultrasound venous Doppler lower extremity left from 01/29/2023 TECHNIQUE: Color flow triplex imaging and compression Doppler was performed to evaluate both the deep and the superficial systems bilaterally. To evaluate the superficial system, the examination was performed in the upright position. Color-flow Doppler ultrasound and compression ultrasound were utilized. In addition, maneuvers were utilized to demonstrate reflux. FINDINGS: 1. DEEP VENOUS ULTRASOUND OF THE RIGHT LOWER EXTREMITY: Respiratory variation, normal compression and augmented flow are noted in the right common femoral vein, right femoral vein, as well as the right popliteal vein and there is no evidence of deep venous thrombosis at these locations. There is no evidence of reflux in the deep system in either the common femoral vein or the popliteal vein. . There is no evidence of a Wilkerson's cyst. 2. SUPERFICIAL ULTRASOUND WITH DOPPLER OF RIGHT LOWER EXTREMITY: The right great saphenous vein at the saphenofemoral junction measures 6 mm, at the mid thigh 1 mm, edakp-wbj-btjz 1 mm, nxava-fbc-tiza 2 mm, at mid calf 1 mm and at the ankle measures 1 mm. There is no reflux demonstrated in the right great saphenous vein. Accessory vein noted laterally measuring up to 3 mm without reflux. The right small saphenous vein measures 3 mm and shows no reflux. 3. DEEP VENOUS ULTRASOUND OF THE LEFT LOWER EXTREMITY: Respiratory variation, normal compression and augmented flow are noted in the left common femoral vein, femoral vein as well as the left popliteal vein and there is no evidence of deep venous thrombosis at these locations. There is no evidence of reflux in the deep system in either the common femoral vein or the popliteal vein. . There is no evidence of a Wilkerson's cyst. 4. SUPERFICIAL ULTRASOUND WITH DOPPLER OF LEFT LOWER EXTREMITY: Left great saphenous vein at the saphenofemoral junction measures 7 mm, at the mid thigh to mm, qnbyx-egu-ptpk to mm, ihqrz-tko-kuxx to mm, at mid calf 1 mm and at the ankle measures 1 mm. There is no reflux demonstrated in the left great saphenous vein. Duplicated small saphenous vein noted. The left small saphenous vein measures 2 mm and shows no reflux. Superficial thrombophlebitis of the left anterior calf vein along the proximal/mid segment. US/US venous duplex LE BI IMPRESSION: 1. RIGHT: No reflux of the deep system. No reflux of the superficial system. 2. LEFT: No reflux of the deep system. No reflux of the superficial system. Duplicated small saphenous vein. Superficial thrombophlebitis of the left anterior calf vein along the proximal/mid segment.
== END 2023-03-20 08:27 | disposition home or self-care (01) ==
LOC: HO.US 08:26
PROVIDERS: PCP Family Medicine; Visit Provider Surgery Vascular Surgery
DX: I83.11 Varicose veins of right lower extremity with inflammation (principal)
CPT/HCPCS: 93970

== ENCOUNTER 2023-04-02 09:27 | Outpatient (AMB) | payer MEDICAID, SELFPAY ==
--- NOTE | 2023-04-02 09:29 | A.OFFVIS_ITS ---
Intake Intake Visit Reasons: follow up lots of pain and swelling Intake Note: pt here for fu with lots of pain and swelling She says that the pain and swelling is mostly in her left leg but that the right leg has a bhumi. vein that is very bothersome. Pt states that she has been wearing the compression stockings and has been elevating her legs and using warm compresses but none of it seems to help. Allergies oxycodone [From Percocet] Allergy (Mild, Verified 04/02/23 09:36) Stomach Upset bee pollen [bee stings] Adverse Reaction (Verified 04/02/23 09:36) Shortness of Breath HPI follow up lots of pain and swelling HPI Details Very pleasant 37-year-old female presents for follow-up evaluation re garding left calf superficial thrombophlebitis. She actually presented to the emergency room and was treated on Eliquis for this. We had subsequently stop the Eliquis. She reports she was doing better for period of time and over the last week or so it has become significantly inflamed and irritated. She now presents for follow-up with venous insufficiency testing. 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 during the entire [facility] Medical History Sjogren's disease Fibromyalgia Surgical History H/O tubal ligation Hx of cosmetic surgery Hx of section Social History Alcohol intake: current Alcohol intake frequency: holidays/special occasions only Patient Tobacco Use Status: Never used Tobacco Gender identity: Female Female Reproductive History Menstrual Age of Menarche: 14 Review of Systems Const Reports as per HPI ENT Reports no additional complaints Card Denies chest pain, Denies chest pain at rest and Denies chest pain with activity Resp Denies chest congestion and Denies cough GI Reports no additional complaints Musc Details: pain over varicosities, aching of lower extremities, swelling, cramping, heaviness and tiredness, itching Denies abnormal gait Skin/Breast Reports pruritus and Denies wounds Neuro Reports no additional complaints and Denies abnormal gait Psych Denies no additional complaints Physical Exam Const General: cooperative, healthy appearing and comfortable Orientation/consciousness: oriented to person, oriented to place and oriented to time Neck Carotids: no bruits Chest Chest palpation & inspection: normal inspection of the chest and normal palpation of entire chest wall Resp Effort & Inspection: normal respiratory effort and able to speak in complete sentences Cardio Rate: regular rate Heart sounds: S1 normal heart sound present and S2 normal heart sound present Peripheral pulses: Peripheral pulses 2+ throughout GI Inspection: Yes normal to inspection Skin Other: Left calf superficial thrombophlebitis CEAP Classification C4 - skin color changes Ep - Etiology Primary As - superficial veins P - reflux General skin exam: dry skin Neuro General: oriented to person, oriented to place and oriented to time Extrem Right lower extremity: full ROM, normal capillary refill and edema Left lower extremity: full ROM, normal capillary refill and edema Psych Mental Status: mental status grossly normal Results Reviewed Results Reviewed: Brief summary of venous insufficiency testing is as follows: right great saphenous vein: negative right small saphenous vein: negative right accessory vein: none present left great saphenous vein: negative left small saphenous vein: negative left accessory vein: none present Please note there is no evidence of any venous aneurysms or significant tortuosity Assessment & Plan Assessment & Plan (1) Varicose veins of left lower extremity with inflammation: Code(s): I83.12 - Varicose veins of left lower extremity with inflammation Plan: In short patient is negative for any significant venous insufficiency. She does have an area of superficial thrombophlebitis of the left lower extremity. At the current time I would like this to improve. We have discussed conservative measures including use of warm compresses and nonsteroidal anti-inflammatories. She will follow up with us in approximately 2 weeks time. Due to the location of those varicosity she may need a microphlebectomy of this area. She is not a need for Nano ablation is as her venous insufficiency testing has shown to be negative. We did discuss routine conservative measures including compression, elevation, exercise. She will follow up with us in approximately 2 weeks time. Coding Level of Care Code Est Pt Level 4 (65692) Diagnoses Varicose veins of left lower extremity with inflammation I83.12
== END 2023-04-02 10:01 | disposition home or self-care (01) ==
PROVIDERS: PCP Family Medicine; Visit Provider Surgery Vascular Surgery
DX: I83.12 Varicose veins of left lower extremity with inflammation (principal)
CPT/HCPCS: 99214

== ENCOUNTER → 2023-04-02 09:27 | Outpatient (BNVA) | payer MEDICAID, SELFPAY | PROVIDERS: PCP Family Medicine; Visit Provider Surgery Vascular Surgery | DX: I83.12 Varicose veins of left lower extremity with inflammation (principal) | CPT/HCPCS: 99212 ==

== ENCOUNTER 2023-04-16 09:29 | Outpatient (AMB) | payer MEDICAID, SELFPAY ==
--- NOTE | 2023-04-16 09:29 | MHC.OFFVIS ---
Intake Vital Signs 04/16/23 09:32 Height 5 ft 3 in Weight 125 lb BMI 22.1 Intake Visit Reasons: 2 week follow up leg check Intake Note: Pt here for a 2 week FU leg check Allergies oxycodone [From Percocet] Allergy (Mild, Verified 04/16/23 09:34) Stomach Upset bee pollen [bee stings] Adverse Reaction (Verified 04/16/23 09:34) Shortness of Breath HPI 2 week follow up leg check HPI Details Very pleasant 37-year-old female presents for follow-up regarding left calf superficial thrombophlebitis. She was initially seen in the emergency room and treated with Eliquis. That has been stopped and she was on warm compresses and nonsteroidals. Providing her minimal relief but still significantly a source of pain and discomfort for her. 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 She notes that it has been affecting her work and has been a constant source of pain for. She now presents for follow-up. [facility] Medical History Sjogren's disease Fibromyalgia Surgical History H/O tubal ligation Hx of cosmetic surgery Hx of section Social History Alcohol intake: current Alcohol intake frequency: holidays/special occasions only Patient Tobacco Use Status: Never used Tobacco Gender identity: Female Female Reproductive History Menstrual Age of Menarche: 14 Review of Systems Const Reports as per HPI ENT Reports no additional complaints Card Denies chest pain, Denies chest pain at rest and Denies chest pain with activity Resp Denies chest congestion and Denies cough GI Reports no additional complaints Musc Details: pain over varicosities, aching of lower extremities, swelling, cramping, heaviness and tiredness, itching Denies abnormal gait Skin/Breast Reports pruritus and Denies wounds Neuro Reports no additional complaints and Denies abnormal gait Psych Denies no additional complaints Physical Exam Vital Signs: BMI result Body Mass Index 22.1 Const General: cooperative, healthy appearing and comfortable Orientation/consciousness: oriented to person, oriented to place and oriented to time Neck Carotids: no bruits Chest Chest palpation & inspection: normal inspection of the chest and normal palpation of entire chest wall Resp Effort & Inspection: normal respiratory effort and able to speak in complete sentences Cardio Rate: regular rate Heart sounds: S1 normal heart sound present and S2 normal heart sound present Peripheral pulses: Peripheral pulses 2+ throughout GI Inspection: Yes normal to inspection Skin Other: +2 edema, large rope-like varicosities greater than 4 mm left medial thigh CEAP Classification C4 - skin color changes Ep - Etiology Primary As - superficial veins P - reflux General skin exam: dry skin Neuro General: oriented to person, oriented to place and oriented to time Extrem Right lower extremity: full ROM, normal capillary refill and edema Left lower extremity: full ROM, normal capillary refill and edema Psych Mental Status: mental status grossly normal Assessment & Plan Assessment & Plan (1) Varicose veins of left lower extremity with inflammation: Code(s): I83.12 - Varicose veins of left lower extremity with inflammation Plan: This patient has varicose veins with inflammation. They continue to be a source of discomfort for the patient. The patient has tried conservative treatment with compression, leg elevation and exercise program for over 3 months time. They have been compliant with all treatment. This has provided minimal relief for the patient. I do not anticipate this course of treatment will alter the underlying etiology. The patient has been scheduled for lower extremity venous treatment inclusive of --- left leg microphlebectomy. Risks, benefits, and complications of this procedure has been discussed in detail with the patient including but not limited to bleeding, infection, and the development of a DVT. The patient has demonstrated a clear understanding and has consented. We will schedule the patient as soon as possible. Thank you for allowing us to participate in this patient's care. If there are any questions or concerns please do not hesitate to contact us. Coding Level of Care Code Est Pt Level 4 (43386) Diagnoses Varicose veins of left lower extremity with inflammation I83.12
[2023-04-16 09:32] VITALS: BMI 22.1
== END 2023-04-16 10:13 | disposition home or self-care (01) ==
PROVIDERS: PCP Family Medicine; Visit Provider Surgery Vascular Surgery
DX: I83.12 Varicose veins of left lower extremity with inflammation (principal)
CPT/HCPCS: 99214

== ENCOUNTER → 2023-04-16 09:29 | Outpatient (BNVA) | payer MEDICAID, SELFPAY | PROVIDERS: PCP Family Medicine; Visit Provider Surgery Vascular Surgery | DX: I83.12 Varicose veins of left lower extremity with inflammation (principal); M35.00 Sjogren syndrome, unspecified; M79.7 Fibromyalgia | CPT/HCPCS: 99212 ==

== ENCOUNTER 2023-04-22 10:18 | Outpatient (AMB) | payer MEDICAID, SELFPAY ==
--- NOTE | 2023-04-22 10:25 | MHC.OFFVIS ---
Intake Vital Signs 04/22/23 10:31 Height 5 ft 3 in Weight 126 lb BMI 22.3 BP 109/63 Blood Pressure Location Rt brachial Position Sitting Pulse 64 Intake Visit Reasons: abscess left medial thigh Intake Note: This patient was referred by Dr. Merlos for an assessment for abscess of the medial thigh. Patient c/o; reports feeling mass on the left medial thigh, reports no drainage, reports taking abx. Teaching Young Required: No Accompanied by: Self / Same As Patient Allergies oxycodone [From Percocet] Allergy (Mild, Verified 04/22/23 10:30) Stomach Upset bee pollen [bee stings] Adverse Reaction (Verified 04/22/23 10:30) Shortness of Breath Medication List - Last Reconciled 04/22/23 by Jb Washington MD apixaban (Eliquis DVT-PE Treat 30D Start) 5 mg PO BID ezqjczjtnv-vlqcgwbdgcxkm-nmfx 50-300-40 mg (Fioricet) 2 caps PO Q8H PRN epinephrine (EpiPen) 0.3 mg (0.3 mL) IM Q4H PRN ibuprofen 600 mg PO TID ondansetron 4 mg PO DAILY PRN 5 days HPI abscess left medial thigh HPI Details 37-year-old female referred for a lump on the left medial thigh. She says she has noticed this for over a week. She says that this is tender. She says that she was started on antibiotics by her primary care physician. She is worried because she has history of Sjogren's and wanted this to be examined. She denies any drainage from the area. She denies any redness of the skin. [facility] Medical History (Updated 04/22/23 @ 10:44 by Jb Washington MD) Subcutaneous nodule Sjogren's disease Fibromyalgia Surgical History H/O tubal ligation Hx of cosmetic surgery Hx of section Family History Other Breast cancer Social History Alcohol intake: current Alcohol intake frequency: holidays/special occasions only Patient Tobacco Use Status: Never used Tobacco Gender identity: Female Female Reproductive History Menstrual Age of Menarche: 14 Review of Systems Const Denies chills and Denies fever(s) Card Denies chest pain, Denies dyspnea and Denies dyspnea on exertion Resp Denies cough, Denies dyspnea and Denies dyspnea on exertion GI Denies hematochezia and Denies change in bowel habits Denies hematuria Musc Denies back pain, Reports myalgias, Reports arthralgias and Denies limited range of motion Neuro Denies focal weakness and Denies convulsions Psych Denies depression and Denies mood swings Physical Exam Vital Signs: Last Vital Signs Pulse 64 04/22/23 10:31 BP 109/63 04/22/23 10:31 BMI result Body Mass Index 22.3 Const General: comfortable and no acute distress Orientation/consciousness: patient oriented x3 Neck Neck: Yes no lymphadenopathy Resp Auscultation: clear to auscultation bilaterally Cardio Rhythm: regular rhythm GI Palpation (GI): Soft to palpation, nontender and no guarding Neuro General: patient oriented x3 Extrem Other: Proximal left medial thigh is note of a well-defined, movable subcutaneous nodule, about 6 mm in size, with no redness of the skin, no fluctuance, no induration Assessment & Plan Assessment & Plan (1) Subcutaneous nodule: Code(s): R22.9 - Localized swelling, mass and lump, unspecified Plan: She has appears to be a subcutaneous nodule that resembles a lipoma versus a cyst. Describes pain on the area. I assured her that this does not appear to be infected. I did describe the option of excision under local anesthesia. I reviewed the risks including but not limited to bleeding, infections and poor healing She says that she has not decided on the option of excision but says that she will call the office if she decides to proceed. This will be done in the office under local anesthesia. Medications: Refilled ncpurosmep-dgjimibvobjkb-rrbj 50-300-40 mg (Fioricet) do not exceed 6 caps per day 2 caps PO Q8H PRN 10 caps 0RF pain (scale score 4-6) Coding Level of Care Code New Pt Level 3 (32453) Diagnoses Subcutaneous nodule R22.9
[2023-04-22 10:31] VITALS: BP 109/63; PULSE 64; BMI 22.3
== END 2023-04-22 10:41 | disposition home or self-care (01) ==
PROVIDERS: PCP Family Medicine; Referring Provider Emergency Medicine; Visit Provider Surgery
DX: R22.9 Localized swelling, mass and lump, unspecified (principal)
CPT/HCPCS: 99203

== ENCOUNTER → 2023-04-22 10:18 | Outpatient (BNVA) | payer MEDICAID, SELFPAY | PROVIDERS: PCP Family Medicine; Referring Provider Emergency Medicine; Visit Provider Surgery | DX: R22.9 Localized swelling, mass and lump, unspecified (principal) | CPT/HCPCS: 99202 ==

== ENCOUNTER 2023-06-21 08:25 | Outpatient (AMB) | payer MEDICAID, SELFPAY ==
[2023-06-21 08:36] VITALS: BMI 22.3
--- NOTE | 2023-06-21 08:36 | MHC.OFFVIS ---
Intake Vital Signs 06/21/23 08:36 Height 5 ft 3 in Weight 126 lb BMI 22.3 Intake Visit Reasons: Left Leg Micro Allergies oxycodone [From Percocet] Allergy (Mild, Verified 04/22/23 10:30) Stomach Upset bee pollen [bee stings] Adverse Reaction (Verified 04/22/23 10:30) Shortness of Breath PFSH Medical History Subcutaneous nodule Sjogren's disease Fibromyalgia Surgical History H/O tubal ligation Hx of cosmetic surgery Hx of section Family History Other Breast cancer Social History Alcohol intake: current Alcohol intake frequency: holidays/special occasions only Patient Tobacco Use Status: Never used Tobacco Gender identity: Female Female Reproductive History Menstrual Age of Menarche: 14 Physical Exam Vital Signs: BMI result Body Mass Index 22.3 Office Procedures Vascular Office Procedure Details Details: Diagnosis: Left Leg varicose veins with inflammation Procedure: Left leg Microphlebectomy Anesthesia: Local Infiltration 20 cc, Tumescent: 0 cc. Varicose veins were marked in the standing position on the left leg and the patient was then placed in the supine position. The left lower extremity was prepared and draped to allow knee flexion in the sterile field. The patient had large superficial varicose veins with significant symptoms of pain. It was therefore determined to perform microphlebectomies of the clusters of varicose veins. The patient had bulging varicose veins which were previously marked in the standing position. A small stab incision was made longitudinally directly overlying the varicose vein in the calf and the varicose vein was grasped with a hemostat aided by a vein hook. It was then dissected as far proximally and distally as possible and avulsed. A total of 11 stab incisions were made and the procedure of stab phlebectomies was repeated 11 times. Hemostasis was checked and stab incision sites were closed with steri-strips and sterile dressing was given with gauze and krilex wrap followed by an brandon bandage. There were no complications and blood loss was minimal. Post-Op instructions were given and a follow-up appointment was recommended. [id number] - Phleb Veins, Extrem - up to 20 All charges added?: Procedure code (CPT) selection complete Assessment & Plan Assessment & Plan (1) Varicose veins of left lower extremity with inflammation: Comment: 06/21/2023 - left leg microphlebectomy Code(s): I83.12 - Varicose veins of left lower extremity with inflammation Plan: See op note Coding Level of Care Code Procedure Only Diagnoses Varicose veins of left lower extremity with inflammation I83.12 CPT Codes Details - Vascular 5: 35777 - Phleb Veins, Extrem - up to 20 ([id number])
== END 2023-06-21 09:47 | disposition home or self-care (01) ==
PROVIDERS: PCP Family Medicine; Referring Provider Family Medicine; Visit Provider Surgery Vascular Surgery
DX: I83.12 Varicose veins of left lower extremity with inflammation (principal)
CPT/HCPCS: 37765

== ENCOUNTER → 2023-06-21 08:25 | Outpatient (BNVA) | payer MEDICAID, SELFPAY | PROVIDERS: PCP Family Medicine; Visit Provider Surgery Vascular Surgery | DX: I83.12 Varicose veins of left lower extremity with inflammation (principal) | CPT/HCPCS: 37765 ==

== ENCOUNTER 2023-07-11 10:32 | Outpatient (REF) | payer MEDICAID, SELFPAY ==
[2023-07-12 16:49] LABS: CT PCR NOT DETECTED (Not Detect.); NG PCR NOT DETECTED (Not Detect.)
[2023-07-13 14:42] LABS: BV Int Neg Control Negative (Negative); BV Int Pos Control Positive (Positive)
== END 2023-07-11 10:33 | disposition home or self-care (01) ==
LOC: HO.LAB 10:32
PROVIDERS: PCP Family Medicine; Visit Provider Advanced Practice Midwife
DX: Z01.419 Encounter for gynecological examination (general) (routine) without abnormal findings (principal); N89.8 Other specified noninflammatory disorders of vagina; Z11.3 Encounter for screening for infections with a predominantly sexual mode of transmission; Z20.2 Contact with and (suspected) exposure to infections with a predominantly sexual mode of transmission; Z98.51 Tubal ligation status; I83.12 Varicose veins of left lower extremity with inflammation; Z98.890 Other specified postprocedural states
CPT/HCPCS: 0353U; 87480; 87510; 87660; 99212

== ENCOUNTER 2023-07-11 10:32 | Outpatient (AMB) | payer MEDICAID, SELFPAY ==
--- NOTE | 2023-07-11 10:47 | MHC.OFFVIS ---
Intake Vital Signs 07/11/23 10:48 Height 5 ft 3 in Weight 125 lb BMI 22.1 BP 110/60 Intake Visit Reasons: STD Testing Quality Assurance Supervisor Required: No Information Interpreted: clinical only Heat Treater Helper: Heat Treater Helper Present Allergies oxycodone [From Percocet] Allergy (Mild, Verified 07/11/23 10:48) Stomach Upset bee pollen [bee stings] Adverse Reaction (Verified 07/11/23 10:48) Shortness of Breath Medication List - Last Reconciled 07/11/23 by Marianna Olguin CNM epinephrine (EpiPen) 0.3 mg (0.3 mL) IM Q4H PRN ibuprofen 600 mg PO TID Is last menstrual period known: Yes Last menstrual period: 06/24/23 Do you need a note to return to daycare/school/sports/work: No HPI STD Testing HPI Details Patient is here for STD screening. She also is noticing vaginal dryness she notices it at sometimes not others she has Sjogren's but she does not like taking the medications because she does not like the side effects so she is trying to just eat very healthy and drink lots of water. 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 Of interest she had become very aware of her menstrual cycles and symptoms of ovulation and she is able to confirm that the vaginal dryness she experiences is always in the 2nd half of her cycle which is luteal phase which makes perfect sense discussed water-based lubricants and other lubricants that women sometimes use. She has no particular STD worries but just wants to get checked for everything and she will go for the blood work later on [facility] Medical History Subcutaneous nodule Sjogren's disease Fibromyalgia Surgical History H/O tubal ligation Hx of cosmetic surgery Hx of section Family History Other Breast cancer Social History Alcohol intake: current Alcohol intake frequency: holidays/special occasions only Patient Tobacco Use Status: Never used Tobacco Gender identity: Female Female Reproductive History Menstrual Age of Menarche: 14 Duration of menses: 3-5 days Date of last menstrual period: 06/24/23 control method: permanent sterilization Total pregnancies: 4 Full term: 4 Date of last pap smear: 11/16/20 (negative) History of abnormal pap smear: No Physical Exam Vital Signs: Last Vital Signs BP 110/60 07/11/23 10:48 BMI result Body Mass Index 22.1 Other: Patient has had 4 C sections has Sjogren's and is complaining of vaginal dryness no Sabino speculums were available only large Graves the smallest large Graves speculum was employed carefully however blind testing with the Q-tips was in the end what was necessary. Vagina pink dry scant to no mucus. External Female Exam: normal external appearance and normal appearance of the urethra Speculum Exam - Vagina: normal appearance of the vagina and normal vaginal discharge Assessment & Plan Assessment & Plan (1) Screen for sexually transmitted diseases: Code(s): Z11.3 - Encounter for screening for infections with a predominantly sexual mode of transmission (2) Vaginal dryness: Comment: Patient aware it is consistently luteal phase and possibly aggravated by her Sjogren's, discussed water-based lubricants. Code(s): N89.8 - Other specified noninflammatory disorders of vagina Plan Patient is here for STD screening. She also is noticing vaginal dryness she notices it at sometimes not others she has Sjogren's but she does not like taking the medications because she does not like the side effects so she is trying to just eat very healthy and drink lots of water. 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 Of interest she had become very aware of her menstrual cycles and symptoms of ovulation and she is able to confirm that the vaginal dryness she experiences is always in the 2nd half of her cycle which is luteal phase which makes perfect sense discussed water-based lubricants and other lubricants that women sometimes use. She has no particular STD worries but just wants to get checked for everything and she will go for the blood work later on Of note vagina slightly dry no Sabino speculums available in this office today very gentle exam with very large Graves and blind checking with Q-tips as speculum too large. Orders: Orders Hepatitis B Surface Antigen Today Z11.3 - Encounter for screening for infections with a predominantly sexual mode of transmission Hepatitis C Antibody Today Z11.3 - Encounter for screening for infections with a predominantly sexual mode of transmission Syphilis Screen Today Z11.3 - Encounter for screening for infections with a predominantly sexual mode of transmission HIV Ab/Ag Today Z11.3 - Encounter for screening for infections with a predominantly sexual mode of transmission Coding Level of Care Code Est Pt Level 3 (70282) Diagnoses Screen for sexually transmitted diseases Z11.3 Vaginal dryness N89.8
[2023-07-11 10:48] VITALS: BP 110/60; BMI 22.1
== END 2023-07-11 11:44 | disposition home or self-care (01) ==
LOC: HO.HWSM 10:32
PROVIDERS: PCP Family Medicine; Visit Provider Advanced Practice Midwife
DX: Z11.3 Encounter for screening for infections with a predominantly sexual mode of transmission (principal); N89.8 Other specified noninflammatory disorders of vagina
CPT/HCPCS: 99213

== ENCOUNTER 2023-07-11 14:05 | Outpatient (AMB) | payer MEDICAID, SELFPAY ==
--- NOTE | 2023-07-11 14:11 | MHC.OFFVIS ---
Intake Vital Signs 07/11/23 14:12 Height 5 ft 3 in Weight 125 lb BMI 22.1 Intake Visit Reasons: 2 week follow up Micro 06/21/23 Intake Note: Patient presents for 2 week follow up s/p left leg micro on 06/21/23. Patient states her leg is feeling much better but does have some sensitivity , bruised feeling where the incisions were done. States she has no swelling or redness. Accompanied by: Self / Same As Patient Allergies oxycodone [From Percocet] Allergy (Mild, Verified 07/11/23 14:16) Stomach Upset bee pollen [bee stings] Adverse Reaction (Verified 07/11/23 14:16) Shortness of Breath HPI 2 week follow up Micro 06/21/23 HPI Details Very pleasant 37-year-old female presents for follow-up status post microphlebectomy. Reports significant improvement in the varicosities over the calf. She does have some mild postprocedure bruising. In general appears to be doing relatively well. 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 [facility] Medical History Subcutaneous nodule Sjogren's disease Fibromyalgia Surgical History H/O tubal ligation Hx of cosmetic surgery Hx of section Family History Other Breast cancer Social History Alcohol intake: current Alcohol intake frequency: holidays/special occasions only Patient Tobacco Use Status: Never used Tobacco Gender identity: Female Female Reproductive History Menstrual Age of Menarche: 14 Review of Systems Const All systems reviewed & are unremarkable except as noted in HPI and below Reports no additional complaints ENT Reports Normal hearing present Card Denies chest pain, Denies chest pain at rest, Denies chest pain with activity and Denies pedal edema Resp Denies cough GI Denies abdominal pain Musc Denies abnormal gait, Denies muscle cramps and Denies radiating pain into limb Skin/Breast Denies skin ulcer and Denies wounds Neuro Reports Normal hearing present and Denies abnormal gait Psych Reports no additional complaints Physical Exam Vital Signs: BMI result Body Mass Index 22.1 Const General: cooperative, healthy appearing and comfortable Orientation/consciousness: oriented to person, oriented to place and oriented to time HEENT Head: Yes normal to inspection Neck Neck: Yes normal visual inspection Carotids: no bruits Chest Chest palpation & inspection: normal inspection of the chest Resp Effort & Inspection: normal respiratory effort and able to speak in complete sentences Auscultation: clear to auscultation bilaterally, no crackles, no rales, no rhonchi and no wheezes Cardio Rate: regular rate Rhythm: regular rhythm Heart sounds: S1 normal heart sound present and S2 normal heart sound present Bruits: no carotid bruits Peripheral pulses: Peripheral pulses 2+ throughout GI Inspection: Yes normal to inspection Skin Other: Mild bruising on pretibial surface Wounds: no wounds Hair: normal Neuro General: oriented to person, oriented to place and oriented to time Cranial nerves: Yes CN's II-XII intact bilaterally and Yes Normal hearing present Cognition (Neuro): normal cognition Motor exam (neuro): 5/5 motor strength present throughout Extrem Other: venous exam: No significant superficial varicosities or spider telangiectasias, minimal edema General: No clubbing, No cyanosis and No edema Psych Appearance: grossly normal Mental Status: mental status grossly normal Speech and movement: Normal speech and movement present Assessment & Plan Assessment & Plan (1) Varicose veins of left lower extremity with inflammation: Comment: 06/21/2023 - left leg microphlebectomy Code(s): I83.12 - Varicose veins of left lower extremity with inflammation Plan: The patient has done extremely well with all venous treatments. Patient's may often experience postprocedure phlebitic episodes and I have discussed with the patient use of warm compresses and NSAIDS if tolerated for pain discomfort. In addition, I have discussed continued conservative measures including use of compression, leg elevation, and exercise. The patient was also given an information sheet regarding appropriate use of compression stockings and future purchases. Thank you for allowing us to care for your patient with venous disease. Coding Level of Care Code Est Pt Level 3 (70416) Diagnoses Varicose veins of left lower extremity with inflammation I83.12
[2023-07-11 14:12] VITALS: BMI 22.1
== END 2023-07-11 14:41 | disposition home or self-care (01) ==
PROVIDERS: PCP Family Medicine; Visit Provider Surgery Vascular Surgery
DX: I83.12 Varicose veins of left lower extremity with inflammation (principal)
CPT/HCPCS: 99213

== ENCOUNTER 2023-08-06 09:05 | Outpatient (AMB) | payer MEDICAID, SELFPAY ==
[2023-08-06 09:09] VITALS: BP 114/62; BMI 22.1
--- NOTE | 2023-08-06 09:09 | A.OFFVIS_ITS ---
Intake Vital Signs 08/06/23 09:09 Height 5 ft 3 in Weight 125 lb BMI 22.1 BP 114/62 Blood Pressure Location Rt brachial Position Sitting Intake Visit Reasons: Annual Intake Note: Pt presents to the office today for an annual visit. 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 She did end up being treated for BV after the last visit and she says there was an improvement after that. 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 She is very busy she has been eating healthy and working out and has lost weight. She has no real health concerns recently she thinks she might have had an abnormal Pap smear perhaps about 10 years ago but they were normal since. [facility] Medical History (Updated 08/06/23 @ 09:51 by Marianna Olguin CNM) Subcutaneous nodule Sjogren's disease Fibromyalgia Surgical History (Updated 08/06/23 @ 09:52 by Marianna Olguin CNM) H/O tubal ligation Hx of cosmetic surgery Hx of section Family History Other Breast cancer Social History Alcohol intake: current Alcohol intake frequency: holidays/special occasions only Patient Tobacco Use Status: Never used Tobacco Gender identity: Female Female Reproductive History Menstrual Age of Menarche: 14 Duration of menses: 3-5 days Date of last menstrual period: 07/19/23 control method: none Total pregnancies: 6 Full term: 4 Number of Living Children: 4 Ab induced: 1 Ab spontaneous: 1 Date of last pap smear: 11/16/20 History of abnormal pap smear: No Physical Exam Vital Signs: Last Vital Signs BP 114/62 08/06/23 09:09 BMI result Body Mass Index 22.1 Const General: healthy appearing, comfortable, no acute distress, well developed and alert Nutritional Appearance: average body habitus Orientation/consciousness: patient oriented x3 Limitations: no limitations HEENT Head: Yes normocephalic Neck Neck: Yes normal visual inspection Chest Chest palpation & inspection: normal inspection of the chest Breast/axilla inspection: normal inspection of the breasts and normal inspection of the axillae Breast/axilla palpation: normal palpation of the breasts and normal palpation of the axillae Resp Effort & Inspection: normal respiratory effort GI Inspection: Yes normal to inspection, No Abdominal wall edema and No distended Palpation (GI): Soft to palpation and nontender Other: Speculum exam within normal limits no vaginal dryness evident vagina is moist with clear whitish discharge cervix nulliparous pink smooth mobile nontender uterus nontender anteverted somewhat fixed secondary to scar tissue from for C- sections adnexa nontender good tone with Kegel. General: Yes bladder normal to palpation External Female Exam: normal external appearance and normal appearance of the urethra Speculum Exam - Vagina: normal appearance of the vagina, normal palpation and normal vaginal discharge Speculum Exam - Cervix: normal appearance of the cervix, normal palpation and nontender Bimanual exam- vagina & uterus: normal bimanual exam, normal palpation, uterine size normal, bladder normal to palpation, consistency normal, normal palpation, uterine mobility normal, uterine shape normal, No Cervical tenderness present, non-tender and no cervical motion tenderness Bimanual Exam- Adnexa, other: normal adnexae, no masses, normal and No adnexal tenderness Neuro General: patient oriented x3 Results Reviewed Results Reviewed: Name: Beatriz Espinoza Age/Sex: 35/F Attending: Marianna Olguin CNM : 1985 Submitted by: Marianna Olguin CNM Copies to: MR #: [id number] Status: DEP REF Collected: 11/15/20 Location: .LAB Received: 11/16/20 Interpretation Satisfactory for evaluation. Negative for intraepithelial lesion or malignancy. HPV mRNA E6/E7: NOT DETECTED This assay detects E6/E7 viral messenger RNA (mRNA) from 14 high-risk HPV types (16, 18, 31, 33, 35, 39, 45, 51, 52, 56, 58, 59, 66, 68) HPV testing performed by [facility], [place], [place]. See reference laboratory portion of the EMR for entire report. Clinical Information LMP: 10/20/20 Previous PAP test: 2019, WNL Material Received ThinPrep Cervical Electronically Signed By: JYOTHI Chacon (ASCP) 11/23/20 1214 The Pap Test is a screening procedure with the inherent possibility of both f alse negative and false positive results. Results should be interpreted in the context of historic and current clinical findings. Reliability of the Pap Test is enhanced by performing the test on a regular repetitive basis. Patient: Beatriz Espinoza Age/[facility]: 35/[id number] MR#: [id number] Page 1 of 1 Assessment & Plan Assessment & Plan (1) Breast cancer screening: Code(s): Z12.39 - Encounter for other screening for malignant neoplasm of breast (2) Cervical cancer screening: Comment: 11/15/20 pap & hpv neg. Code(s): Z12.4 - Encounter for screening for malignant neoplasm of cervix (3) Screen for sexually transmitted diseases: Code(s): Z11.3 - Encounter for screening for infections with a predominantly sexual mode of transmission (4) Well woman exam with routine gynecological exam: Code(s): Z01.419 - Encounter for gynecological examination (general) (routine) without abnormal findings (5) Vaginal dryness: Comment: Patient aware it is consistently luteal phase and possibly aggravated by her Sjogren's, discussed water-based lubricants.- 08/06/23-not a problem this year. Code(s): N89.8 - Other specified noninflammatory disorders of vagina Plan -----Discussed in this visit the following: healthy balanced diet, regular and consistent exercise, getting recommended health screens, doing the best she can for her particular health concerns, kegel exercises, pap smear screening and followup recommendations, mammography screening and SBE, normal changes in cycles in her life stage--- . Discussed BV and normal lucita and the vagina and what the constellation of symptoms for BV usually entail and when treatment is offered and recommended. She is normal vaginal discharge today consistent with where she is in her cycle post ovulation. Reviewed her general health and life and stressors and busy demands of school work and being a mom of school age kids playing basketball -----we reviewed her history of her last which was extremely traumatic she had what finally was able to be diagnosed as a chronic abruption and then a full abruption and was transferred emergently by this CNM to [facility] and at of an emergency with transfusions there. She had her tubes tied after that 1. She had no interest in any blood work we will see her in 1 year Pap smear was done. Orders: Orders Bacterial Vaginosis Panel Today Z01.419 - Encounter for gynecological examination (general) (routine) without abnormal findings CT NG by PCR Today Z01.419 - Encounter for gynecological examination (general) (routine) without abnormal findings Pap Smear Today Z01.419 - Encounter for gynecological examination (general) (routine) without abnormal findings Coding Level of Care Code Est Pt Prev Care 18-39y(40268) Diagnoses Breast cancer screening Z12.39 Cervical cancer screening Z12.4 Screen for sexually transmitted diseases Z11.3 Well woman exam with routine gynecological exam Z01.419 Vaginal dryness N89.8
== END 2023-08-06 10:15 | disposition home or self-care (01) ==
PROVIDERS: Visit Provider Advanced Practice Midwife
DX: Z12.39 Encounter for other screening for malignant neoplasm of breast (principal); Z12.4 Encounter for screening for malignant neoplasm of cervix; Z11.3 Encounter for screening for infections with a predominantly sexual mode of transmission; Z01.419 Encounter for gynecological examination (general) (routine) without abnormal findings; N89.8 Other specified noninflammatory disorders of vagina
CPT/HCPCS: 99395

== ENCOUNTER 2023-08-06 09:05 | Outpatient (REF) | payer MEDICAID, SELFPAY ==
[2023-08-07 11:29] LABS: CT PCR NOT DETECTED (Not Detect.); NG PCR NOT DETECTED (Not Detect.)
[2023-08-07 13:52] LABS: BV Int Neg Control Negative (Negative); BV Int Pos Control Positive (Positive)
[2023-08-13 12:38] LABS: HPV mRNA E6/E7 rflx Not Detected (Not Detected)
== END 2023-08-06 09:06 | disposition home or self-care (01) ==
LOC: HO.LNP 09:05
PROVIDERS: Visit Provider Advanced Practice Midwife
DX: Z01.419 Encounter for gynecological examination (general) (routine) without abnormal findings (principal); Z12.39 Encounter for other screening for malignant neoplasm of breast; Z12.4 Encounter for screening for malignant neoplasm of cervix; Z11.3 Encounter for screening for infections with a predominantly sexual mode of transmission
CPT/HCPCS: 0353U; 87480; 87510; 87624; 87660; 88142; 99395

== ENCOUNTER 2023-09-19 14:47 | Outpatient (AMB) | payer MEDICAID, SELFPAY ==
--- NOTE | 2023-09-19 14:52 | A.OFFVIS_ITS ---
Intake Visit Reasons: Left leg pain s/p 2/4 Micro Intake Note: Patient presents for left leg pain s/p 2/4 micro. States in the last two weeks she has a vein on the left leg that is black and blue , painful. Wears compression socks for about 4 hours but takes them off as her legs begin to hurt even more. Patient's leg has multiple spots of discoloration that look like bruises but does not hurt like one. Allergies oxycodone [From Percocet] Allergy (Mild, Verified 09/19/23 14:55) Stomach Upset bee pollen [bee stings] Adverse Reaction (Verified 09/19/23 14:55) Shortness of Breath HPI HPI Left leg pain s/p 2/4 Micro: Details: Very pleasant 38-year-old female presents for follow-up regarding venous insufficiency. She had actually undergone microphlebectomy. She developed some postprocedure phlebitis. 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 She did well postprocedure but has now developed new inflammation around varicosities on the pretibial surface. She now presents for follow-up. Of note construction project mgr was present during visit COUNT INCLUDES [facility] Medical History Subcutaneous nodule Sjogren's disease Fibromyalgia Surgical History H/O tubal ligation Hx of cosmetic surgery Hx of section Family History Other Breast cancer Social History Alcohol intake: current Alcohol intake frequency: holidays/special occasions only Patient Tobacco Use Status: Never used Tobacco Gender identity: Female Female Reproductive History Menstrual Age of Menarche: 14 Review of Systems Const Reports as per HPI ENT Reports no additional complaints Card Denies chest pain, Denies chest pain at rest and Denies chest pain with activity Resp Denies chest congestion and Denies cough GI Reports no additional complaints Musc Details: pain over varicosities, aching of lower extremities, swelling, cramping, heaviness and tiredness, itching Denies abnormal gait Skin/Breast Reports pruritus and Denies wounds Neuro Reports no additional complaints and Denies abnormal gait Psych Denies no additional complaints Physical Exam Const General: cooperative, healthy appearing and comfortable Orientation/consciousness: oriented to person, oriented to place and oriented to time Neck Carotids: no bruits Chest Chest palpation & inspection: normal inspection of the chest and normal palpation of entire chest wall Resp Effort & Inspection: normal respiratory effort and able to speak in complete sentences Cardio Rate: regular rate Heart sounds: S1 normal heart sound present and S2 normal heart sound present Peripheral pulses: Peripheral pulses 2+ throughout GI Inspection: Yes normal to inspection Skin Other: +2 edema, large rope-like varicosities greater than 4 mm left pretibial surface CEAP Classification C4 - skin color changes Ep - Etiology Primary As - superficial veins P - reflux General skin exam: dry skin Neuro General: oriented to person, oriented to place and oriented to time Extrem Right lower extremity: full ROM, normal capillary refill and edema Left lower extremity: full ROM, normal capillary refill and edema Psych Mental Status: mental status grossly normal Assessment & Plan Assessment & Plan (1) Varicose veins of left lower extremity with inflammation: Comment: 06/21/2023 - left leg microphlebectomy Code(s): I83.12 - Varicose veins of left lower extremity with inflammation Category: Medical Plan: In short patient has developed an element of phlebitis. We did discuss conservative measures including warm compresses and use of nonsteroidal anti- inflammatories. I would like this to settle down before any further intervention. In addition we did discuss use of an Enoch wrap or compression stockings. She will follow up with us in approximately 3 weeks time. Thank you for allowing us to assist in her care. If there are any questions or concerns please do not hesitate to contact us Coding Level of Care Code Est Pt Level 4 (39306) Diagnoses Varicose veins of left lower extremity with inflammation I83.12
== END 2023-09-19 15:09 | disposition home or self-care (01) ==
PROVIDERS: PCP Family Medicine; Referring Provider Family Medicine; Visit Provider Surgery Vascular Surgery
DX: I83.12 Varicose veins of left lower extremity with inflammation (principal)
CPT/HCPCS: 99213

== ENCOUNTER → 2023-09-19 14:47 | Outpatient (BNVA) | payer MEDICAID, SELFPAY | PROVIDERS: PCP Family Medicine; Visit Provider Surgery Vascular Surgery | DX: I83.12 Varicose veins of left lower extremity with inflammation (principal) | CPT/HCPCS: 99212 ==

== ENCOUNTER 2023-10-01 10:47 | Outpatient (REF) | payer MEDICAID, SELFPAY ==
[2023-10-02 11:22] LABS: Bacterial Vaginosis PCR POSITIVE (Negative); Candida Group PCR DETECTED (Not Detect); Candida glab krusei PCR NOT DETECTED (Not Detect); Trichomonas vaginalis PCR NOT DETECTED (Not Detect)
[2023-10-02 11:41] LABS: CT PCR NOT DETECTED (Not Detect.); NG PCR NOT DETECTED (Not Detect.)
== END 2023-10-01 10:48 | disposition home or self-care (01) ==
LOC: HO.LAB 10:47
PROVIDERS: PCP Family Medicine; Visit Provider Advanced Practice Midwife
DX: Z01.419 Encounter for gynecological examination (general) (routine) without abnormal findings (principal); Z20.2 Contact with and (suspected) exposure to infections with a predominantly sexual mode of transmission; N39.0 Urinary tract infection, site not specified
CPT/HCPCS: 0352U; 0353U; 87086; 87088; 87186; 99212

== ENCOUNTER 2023-10-01 10:47 | Outpatient (AMB) | payer MEDICAID, SELFPAY ==
[2023-10-01 10:53] VITALS: BP 112/68; BMI 22.7
--- NOTE | 2023-10-01 10:53 | A.OFFVIS_ITS ---
Vital Signs 10/01/23 10:53 Height 5 ft 3 in Weight 128 lb BMI 22.7 BP 112/68 Intake Visit Reasons: ? 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 bv: Details: She is frustrated because she believes she has BV again she has a discharge and the odor is very fishy and she had treated it recently with Metrogel and it is back again she had just started with new partner at the time of the last visit so it has been 3 months now and she is frustrated because she feels like every time she has sex she has this bad smell she has even tried using condoms but he does not like wearing them and so it has a problem. Additionally for the last 2 days she has been feeling discomfort in her lower abdomen that feels exactly like the last time she had a UTI 4 months ago and she is urinating more frequently in small amounts she started with azo yesterday and is considering boric acid that her friend just told her about she is also eating probiotics and help with overall health and drinking cranberry juice as well. She has taken both Bactrim and Macrodantin for UTIs in the past and has had no ill effects. And they worked. Today we will submit a specimen for UA C&S as she needs to void now and we will do full testing for STIs. PFSH Medical History Subcutaneous nodule Sjogren's disease Fibromyalgia Surgical History H/O tubal ligation Hx of cosmetic surgery Hx of section Family History Other Breast cancer Social History Alcohol intake: current Alcohol intake frequency: holidays/special occasions only Patient Tobacco Use Status: Never used Tobacco Gender identity: Female Female Reproductive History Menstrual Age of Menarche: 14 Duration of menses: 3-5 days Date of last menstrual period: 09/18/23 control method: permanent sterilization Total pregnancies: 4 Full term: 4 Date of last pap smear: 08/08/23 (negative, previous pap,2020 neg.) History of abnormal pap smear: No Physical Exam Vital Signs: Last Vital Signs BP 112/68 10/01/23 10:53 BMI result Body Mass Index 22.7 Other: Of note patient was clutching her abdomen as she is having cramping in her bladder area. Normal external speculum exam vagina pink and moist with slightly watery clear discharge consistent with pending I ovulation and uterus medium sized anteverted nontender her bladder is slightly tender adnexa nontender very good muscle tone. External Female Exam: normal external appearance Speculum Exam - Vagina: normal appearance of the vagina and normal vaginal discharge Speculum Exam - Cervix: normal appearance of the cervix Bimanual exam- vagina & uterus: normal bimanual exam, uterine size normal, consistency normal, uterine mobility normal, uterine shape normal and non-tender Bimanual Exam- Adnexa, other: normal adnexae, no masses and No adnexal tenderness Assessment & Plan Assessment & Plan (1) Bacterial vaginosis: Code(s): N76.0 - Acute vaginitis; B96.89 - Other specified bacterial agents as the cause of diseases classified elsewhere Category: Medical (2) Encounter for screening examination for sexually transmitted disease: Code(s): Z11.3 - Encounter for screening for infections with a predominantly sexual mode of transmission Category: Medical (3) Urinary tract infection: Comment: Culture being sent, will treat with Bactrim b.i.d. x3 days. Code(s): N39.0 - Urinary tract infection, site not specified Category: Medical Plan ---Discussed the current research around the phenomena of bacterial vaginosis, and the many factors involved in the increase and change in the prevalence of certain bacteria in the vagina, that contribute to the clingy discharge, the fishy malodor, and the discomfort, that many women experience very frequently in their lives. Discussed the many factors that can promote it, and current thinking about best options for treatment of both the a 1 time episode, or frequently occurring episodes. Discussed the role of partner condom use. Discussed that previously, treatment was recommended for both partners, but is not currently recommended today in 2020. Discussed the testing involved. Discussed treatment options including Flagyl, metronidazole gel, boric acid capsules and others. 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 For the UTI symptoms which are very clear and she is tender at her bladder we are submitting the culture and I will treat her with Bactrim (her choice) for 3 days and she is going to continue with the Azo for another day or 2 and I also recommend unsweetened cranberry juice she is drinking lots of water as well and she is aware potential use of condoms. She declines blood work for STIs. She may call for the culture results in 3 days just in case the offending bacteria is resistant to Bactrim. Medications: New metronidazole 0.75%(37.5mg/5gram) For use with very clear symptoms of bacterial vaginosis. 1 appful vaginal BID 5 days 70 grams 3RF sulfamethoxazole-trimethoprim 800-160 mg 1 tab PO Q12H 6 tabs 0RF Coding Level of Care Code Est Pt Level 3 (52854) Diagnoses Bacterial vaginosis N76.0; B96.89 Encounter for screening examination for sexually transmitted disease Z11.3 Urinary tract infection N39.0
== END 2023-10-01 11:38 | disposition home or self-care (01) ==
PROVIDERS: PCP Family Medicine; Visit Provider Advanced Practice Midwife
DX: N76.0 Acute vaginitis (principal); B96.89 Other specified bacterial agents as the cause of diseases classified elsewhere; Z11.3 Encounter for screening for infections with a predominantly sexual mode of transmission; N39.0 Urinary tract infection, site not specified
CPT/HCPCS: 99213

== ENCOUNTER 2023-12-23 15:13 | Outpatient (REF) | payer MEDICAID, SELFPAY ==
[2023-12-23 17:39] LABS: MANUAL DIFF FLAG NO
[2023-12-23 17:54] LABS: Basophils Percent Auto 0.7 % (0-2); Eosinophils Percent Auto 0.5 % (0-4); Hematocrit 36.3 % (37.0-47.0); Hemoglobin 11.4 g/dl (12.0-16.0); Imm Gran Abs Auto 0.02 X10*3/uL (0.00-0.03); Imm Gran Pct Auto 0.3 % (0.0-0.4); Lymphocytes Absolute Auto 1.2 X10*3/uL (1.2-4.9); Lymphocytes Percent Auto 19.8 % (20-40); Mean Corpuscular HGB Conc 31.4 g/dl (31.0-35.0); Mean Corpuscular Hemoglobin 26.1 pg (27.0-33.0); Mean Corpuscular Volume 83.1 fL (80.0-98.0); Mean Platelet Volume 10.9 fL (9.4-12.3); Monocytes Absolute Auto 0.4 X10*3/uL (0.1-1.2); Neutrophils Absolute Auto 4.3 x10*3/uL (2.0-8.3); Neutrophils Percent Auto 71.7 % (45-73); Platelet Count 305 X10*3/uL (160-400); Red Blood Count 4.37 X10*6/uL (4.20-5.50); Red Cell Distribution Width 16.1 % (11.0-16.0)
[2023-12-23 17:59] LABS: Alanine Aminotransferase 10 U/L (0-31); Albumin Level 4.2 g/dL (3.5-5.0); Alkaline Phosphatase 50 U/L (39-117); Anion Gap 11 (12-20); Aspartate Amino Transferase 20 U/L (5-31); Bilirubin Total 0.6 mg/dL (0.0-1.0); Blood Urea Nitrogen 11 mg/dL (9-16); Calcium 9.6 mg/dL (8.4-10.2); Carbon Dioxide 25 mmol/L (22-29); Chloride 106 mmol/L (96-108); Estimated Glomerular Filt Rate > 60; Glucose Random 84 mg/dL (60-115); Potassium 3.9 mmol/L (3.3-5.1); Sodium 138 mmol/L (135-145); Total Protein 7.6 g/dL (6.5-8.0)
[2023-12-24 04:23] LABS: CT PCR NOT DETECTED (Not Detect.); NG PCR NOT DETECTED (Not Detect.)
[2023-12-24 08:33] LABS: HBsAGNum1 0.56 S/CO (0.00-0.99); HIV AB/AG Nonreactive (Nonreactive); HIV Num 1 0.08 S/CO (0.00-0.99); Hepatitis B Surface Antigen Negative (Negative); ~HepC Num1 0.21 S/CO (0.00-0.79); ~Hepatitis C Antibody Nonreactive (Nonreactive)
[2023-12-24 08:35] LABS: Syphilis Screen Nonreactive (Nonreactive)
[2023-12-24 08:49] LABS: Bacterial Vaginosis PCR NEGATIVE (Negative); Candida Group PCR NOT DETECTED (Not Detect); Candida glab krusei PCR NOT DETECTED (Not Detect); Trichomonas vaginalis PCR NOT DETECTED (Not Detect)
== END 2023-12-23 15:14 | disposition home or self-care (01) ==
LOC: HO.CHCLDS 15:13
PROVIDERS: Advanced Practice Midwife; PCP Family Medicine; Visit Provider Registered Nurse
DX: Z11.3 Encounter for screening for infections with a predominantly sexual mode of transmission (principal); Z11.4 Encounter for screening for human immunodeficiency virus [HIV]; N89.8 Other specified noninflammatory disorders of vagina; R19.7 Diarrhea, unspecified
CPT/HCPCS: 0352U; 36415; 80053; 85025; 86780; 86803; 87340; 87389; 87491; 87591

== ENCOUNTER 2024-04-23 11:01 | Outpatient (AMB) | payer MEDICAID, SELFPAY ==
--- NOTE | 2024-04-23 11:08 | MHC.OFFVIS ---
Intake Visit Reasons: long overdue follow up/ pt c/o left leg pain Intake Note: Patient states her left leg is painful, wakes her up out of her sleep. It is red and bruised. Accompanied by: Self / Same As Patient Allergies oxycodone [From Percocet] Allergy (Mild, Verified 04/23/24 11:09) Stomach Upset bee pollen [bee stings] Adverse Reaction (Verified 04/23/24 11:09) Shortness of Breath HPI HPI long overdue follow up/ pt c/o left leg pain: Details: Very pleasant 38-year-old female presents for follow-up regarding left lower extremity pain. She had actually undergone left leg microphlebectomy back in June with us. She reports that she has been working out more lately and has reported some pretibial discomfort in the discomfort over her varicosities. They have been a source of pain for her. She has been using compression. She now presents for routine follow-up. 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 PFSH Medical History Subcutaneous nodule Sjogren's disease Fibromyalgia Surgical History H/O tubal ligation Hx of cosmetic surgery Hx of section Family History Other Breast cancer Social History Alcohol intake: current Alcohol intake frequency: holidays/special occasions only Patient Tobacco Use Status: Never used Tobacco Gender identity: Female Female Reproductive History Menstrual Age of Menarche: 14 Review of Systems Const All systems reviewed & are unremarkable except as noted in HPI and below Reports no additional complaints ENT Reports Normal hearing present Card Denies chest pain, Denies chest pain at rest, Denies chest pain with activity and Denies pedal edema Resp Denies cough GI Denies abdominal pain Musc Denies abnormal gait, Denies muscle cramps and Denies radiating pain into limb Skin/Breast Denies skin ulcer and Denies wounds Neuro Reports Normal hearing present and Denies abnormal gait Psych Reports no additional complaints Physical Exam Const General: cooperative, healthy appearing and comfortable Orientation/consciousness: oriented to person, oriented to place and oriented to time HEENT Head: Yes normal to inspection Neck Neck: Yes normal visual inspection Carotids: no bruits Chest Chest palpation & inspection: normal inspection of the chest Resp Effort & Inspection: normal respiratory effort and able to speak in complete sentences Auscultation: clear to auscultation bilaterally, no crackles, no rales, no rhonchi and no wheezes Cardio Rate: regular rate Rhythm: regular rhythm Heart sounds: S1 normal heart sound present and S2 normal heart sound present Bruits: no carotid bruits Peripheral pulses: Peripheral pulses 2+ throughout GI Inspection: Yes normal to inspection Skin Wounds: no wounds Hair: normal Neuro General: oriented to person, oriented to place and oriented to time Cranial nerves: Yes CN's II-XII intact bilaterally and Yes Normal hearing present Cognition (Neuro): normal cognition Motor exam (neuro): 5/5 motor strength present throughout Extrem Other: Left lower extremity - mild superficial pretibial varicosities. There may be a few phlebitic areas. Also 2 raised areas in her leg which are tender to her. General: No clubbing, No cyanosis and No edema Psych Appearance: grossly normal Mental Status: mental status grossly normal Speech and movement: Normal speech and movement present Assessment & Plan Assessment & Plan (1) Varicose veins of left lower extremity with inflammation: Comment: 06/21/2023 - left leg microphlebectomy Code(s): I83.12 - Varicose veins of left lower extremity with inflammation Category: Medical Plan: In short she may have recurrent left lower extremity venous disease. I have taken the liberty of ordering left lower extremity venous insufficiency testing. She will follow up with us after testing. Thank you for allowing us to assist in her care. Orders: Orders US venous duplex LE LT 1 Week I83.12 - Varicose veins of left lower extremity with inflammation Coding Level of Care Code Est Pt Level 4 (21534) Diagnoses Varicose veins of left lower extremity with inflammation I83.12
== END 2024-04-23 13:54 | disposition home or self-care (01) ==
PROVIDERS: PCP Family Medicine; Visit Provider Surgery Vascular Surgery
DX: I83.12 Varicose veins of left lower extremity with inflammation (principal)
CPT/HCPCS: 99213

== ENCOUNTER → 2024-04-23 11:01 | Outpatient (BNVA) | payer MEDICAID, SELFPAY | PROVIDERS: PCP Family Medicine; Visit Provider Surgery Vascular Surgery | DX: I83.12 Varicose veins of left lower extremity with inflammation (principal); M79.7 Fibromyalgia; M35.00 Sjogren syndrome, unspecified | CPT/HCPCS: 99212 ==

== ENCOUNTER 2024-04-28 11:01 | Outpatient (REF) | payer MEDICAID, SELFPAY ==
--- NOTE | ~2024-04-28 | XR_ITS ---
EXAMINATION: XR WRIST, RIGHT CLINICAL INFORMATION: Acute pain after heavy lifting for one day COMPARISON: None available. TECHNIQUE: PA, lateral, oblique, and scaphoid views of the right wrist. FINDINGS: The bones and soft tissues are normal. No fracture. Alignment is anatomic with normal joint spaces. No erosions or abnormal soft tissue calcifications. XR/XR wrist RT min 3V IMPRESSION: Normal right wrist. Electronically signed by: Brian Whitlock MD 04/30/2024 10:58 AM [facility]
== END 2024-04-28 11:02 | disposition home or self-care (01) ==
LOC: HO.HHCX 11:01
PROVIDERS: PCP Family Medicine; Visit Provider Internal Medicine Geriatric Medicine
DX: M25.531 Pain in right wrist (principal)
CPT/HCPCS: 73110

== ENCOUNTER → 2024-04-28 11:03 | Outpatient (BNV) | payer MEDICAID, SELFPAY | PROVIDERS: PCP Family Medicine; Visit Provider Radiology Diagnostic Radiology | DX: M25.531 Pain in right wrist (principal) | CPT/HCPCS: 73110 ==

== ENCOUNTER 2024-05-07 08:18 | Outpatient (REF) | payer MEDICAID, SELFPAY ==
--- NOTE | ~2024-05-07 | US_ITS ---
EXAMINATION: US LOWER EXTREMITY (REFLUX EXAM), LEFT CLINICAL INDICATION: Chronic venous insufficiency with left lower extremity varicose veins with inflammation COMPARISON: 03/20/2023 TECHNIQUE: Color flow triplex imaging and compression Doppler was performed to evaluate both the deep and the superficial systems of the left lower extremity. To evaluate the superficial system, the examination was performed in the upright position. Color-flow Doppler ultrasound and compression ultrasound were utilized. In addition, maneuvers were utilized to demonstrate reflux. FINDINGS: 1. DEEP VENOUS DOPPLER ULTRASOUND: Common Femoral Vein: Compressible, normal respiratory variation and augmented flow. Femoral Vein: Compressible, normal color flow and augmentation. Popliteal Vein: Compressible, normal augmentation. Deep Reflux: There is no evidence of reflux in the deep system in either the common femoral vein, superficial femoral vein or the popliteal vein. There is no evidence of a Wilkerson's cyst. 2. SUPERFICIAL VENOUS DOPPLER ULTRASOUND: GREAT SAPHENOUS VEIN: Saphenofemoral Junction: 0.5 cm; Reflux: 0 ms Proximal Thigh: 0.2 cm; Reflux: 0 ms Mid Thigh: 0.2 cm; Reflux: 0 ms Above Knee: 0.3 cm; Reflux: 0 ms At Knee: 0.3 cm; Reflux: 0 ms Below Knee: 0.2 cm; Reflux: 0 ms Mid Calf: 0.1 cm; Reflux: 0 ms Ankle: 0.2 cm; Reflux: 0 ms DUPLICATED MEDIAL GREAT SAPHENOUS VEIN: Diameter: None imaged Reflux: NA DUPLICATED LATERAL GREAT SAPHENOUS VEIN: Diameter: 8.2 cm Reflux: None SMALL SAPHENOUS VEIN: Saphenopopliteal Junction: 0.3 cm; Reflux: 0 ms Proximal: 0.1 cm; Reflux: 0 ms Distal: 0.2 cm; Reflux: 0 ms VEIN OF GIACOMINI: Size: NA Reflux: NA PERFORATORS: Location: None significant Size: NA Reflux: NA VARICOSITIES: Location: None imaged Size: NA Reflux: NA US/US venous duplex LE LT IMPRESSION: 1. Left great saphenous vein is normal in size and there is no significant reflux. 2. No significant varicosities or perforators. Electronically signed by: Stuart Vu MD 05/07/2024 01:04 PM [facility]
== END 2024-05-07 08:19 | disposition home or self-care (01) ==
LOC: HO.US 08:18
PROVIDERS: PCP Family Medicine; Visit Provider Surgery Vascular Surgery
DX: I83.12 Varicose veins of left lower extremity with inflammation (principal)
CPT/HCPCS: 93971

== ENCOUNTER 2024-05-11 10:11 | Outpatient (REF) | payer MEDICAID, SELFPAY ==
[2024-05-11 11:42] LABS: Hemoglobin 11.5 g/dl (12.0-16.0); Mean Corpuscular HGB Conc 31.9 g/dl (31.0-35.0); Mean Corpuscular Volume 84.5 fL (80.0-98.0); Mean Platelet Volume 10.9 fL (9.4-12.3); Platelet Count 296 X10*3/uL (160-400); Red Blood Count 4.26 X10*6/uL (4.20-5.50); Red Cell Distribution Width 14.4 % (11.0-16.0); White Blood Count 5.9 X10*3/uL (4.8-10.8)
[2024-05-11 12:23] LABS: Alanine Aminotransferase 18 U/L (0-31); Alkaline Phosphatase 55 U/L (39-117); Anion Gap 8 (12-20); Aspartate Amino Transferase 26 U/L (5-31); Bilirubin Direct 0.1 mg/dL (0.0-0.5); Bilirubin Total 0.3 mg/dL (0.0-1.0); Blood Urea Nitrogen 17 mg/dL (9-16); Calcium 8.5 mg/dL (8.4-10.2); Carbon Dioxide 28 mmol/L (22-29); Chloride 108 mmol/L (96-108); Cholesterol 163 mg/dL (<200); Estimated Glomerular Filt Rate > 60; Glucose Random 81 mg/dL (60-115); HDL Cholesterol 53 mg/dL (>40); LDL Cholesterol Calculated 89 mg/dL (<100); Potassium 3.9 mmol/L (3.3-5.1); Sodium 140 mmol/L (135-145); Total Protein 7.4 g/dL (6.5-8.0); Triglycerides 109 mg/dL (<150)
[2024-05-11 12:36] LABS: Estimated Average Glucose 100 mg/dL; Hemoglobin A1C 95.8198 umol/L; Hemoglobin A1c % 5.1 % (<6.0); Total Hemoglobin (HGBA1C) 2953.6066 umol/L
[2024-05-11 13:57] LABS: Free T4 (Free Thyroxine) 0.95 ng/dL (0.71-1.85); Thyroid Stimulating Hormone 1.14 uIU/mL (0.32-4.0); Vitamin D 25-OH Total 29.5 ng/mL (>30)
[2024-05-14 01:57] LABS: TS Negative Control Passed; TS Panel A 0; TS Panel B 0; TS Positive Control Passed; TSpotTB Negative (Negative)
== END 2024-05-11 10:12 | disposition home or self-care (01) ==
LOC: HO.HHCL 10:11
PROVIDERS: Visit Provider Family Medicine
DX: Z00.00 Encounter for general adult medical examination without abnormal findings (principal)
CPT/HCPCS: 36415; 80048; 80061; 80076; 82306; 83036; 84439; 84443; 85027; 86481

== ENCOUNTER 2024-05-28 10:54 | Outpatient (AMB) | payer MEDICAID, SELFPAY ==
--- NOTE | 2024-05-28 10:58 | MHC.OFFVIS ---
Intake Visit Reasons: follow up s/p US 05/07/24 Intake Note: Patient presents for US performed on on 05/07/24. States she has pain that comes in goes but feels better than before . Accompanied by: Self / Same As Patient Allergies oxycodone [From Percocet] Allergy (Mild, Verified 05/28/24 10:59) Stomach Upset bee pollen [bee stings] Adverse Reaction (Verified 05/28/24 10:59) Shortness of Breath HPI HPI follow up s/p US 05/07/24: Details: Very pleasant 38-year-old female presents for follow-up regarding left lower extremity pain. She reports that she has 2 areas on the left pretibial surface they have been a source of pain and discomfort for her. She actually had undergone left lower extremity microphlebectomy with us in the past. She has undergone repeat venous insufficiency testing and is now for follow-up. 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 [facility] Medical History Subcutaneous nodule Sjogren's disease Fibromyalgia Surgical History H/O tubal ligation Hx of cosmetic surgery Hx of section Family History Other Breast cancer Social History Alcohol intake: current Alcohol intake frequency: holidays/special occasions only Patient Tobacco Use Status: Never used Tobacco Gender identity: Female Female Reproductive History Menstrual Age of Menarche: 14 Review of Systems Const All systems reviewed & are unremarkable except as noted in HPI and below Reports no additional complaints ENT Reports Normal hearing present Card Denies chest pain, Denies chest pain at rest, Denies chest pain with activity and Denies pedal edema Resp Denies cough GI Denies abdominal pain Musc Denies abnormal gait, Denies muscle cramps and Denies radiating pain into limb Skin/Breast Denies skin ulcer and Denies wounds Neuro Reports Normal hearing present and Denies abnormal gait Psych Reports no additional complaints Physical Exam Const General: cooperative, healthy appearing and comfortable Orientation/consciousness: oriented to person, oriented to place and oriented to time HEENT Head: Yes normal to inspection Neck Neck: Yes normal visual inspection Carotids: no bruits Chest Chest palpation & inspection: normal inspection of the chest Resp Effort & Inspection: normal respiratory effort and able to speak in complete sentences Auscultation: clear to auscultation bilaterally, no crackles, no rales, no rhonchi and no wheezes Cardio Rate: regular rate Rhythm: regular rhythm Heart sounds: S1 normal heart sound present and S2 normal heart sound present Bruits: no carotid bruits Peripheral pulses: Peripheral pulses 2+ throughout GI Inspection: Yes normal to inspection Skin Wounds: no wounds Hair: normal Neuro General: oriented to person, oriented to place and oriented to time Cranial nerves: Yes CN's II-XII intact bilaterally and Yes Normal hearing present Cognition (Neuro): normal cognition Motor exam (neuro): 5/5 motor strength present throughout Extrem Other: venous exam: Mild superficial varicosities and spider telangiectasias Left pretibial surface has a raised mass of a proximally 6 cm on the more superior aspect and on the inferior portion it is 1.5 cm in diameter. No areas of fluctuance noted. No significant varicosities noted in this area. General: No clubbing, No cyanosis and No edema Psych Appearance: grossly normal Mental Status: mental status grossly normal Speech and movement: Normal speech and movement present Results Reviewed Results Reviewed: Brief summary of venous insufficiency testing is as follows: left great saphenous vein: negative left small saphenous vein: negative left accessory vein: none present Please note there is no evidence of any venous aneurysms or significant tortuosity Assessment & Plan Assessment & Plan (1) Varicose veins of left lower extremity with inflammation: Comment: 06/21/2023 - left leg microphlebectomy Code(s): I83.12 - Varicose veins of left lower extremity with inflammation Category: Medical Plan: In short patient is negative for any significant venous insufficiency. The concern here is this left leg mass. This may be a lipoma or underlying mass. I have taken the liberty of referring her to General surgery. She will follow up with us on an as-needed basis. Thank you for allowing us to assist in her care. If there are any questions or concerns please do not hesitate to contact us. (2) Mass of left lower leg: Code(s): R22.42 - Localized swelling, mass and lump, left lower limb Category: Medical Plan: See above Orders: Referrals General Surgery Referral D17.9 - Benign lipomatous neoplasm, unspecified Coding Level of Care Code Est Pt Level 4 (92932) Diagnoses Varicose veins of left lower extremity with inflammation I83.12 Mass of left lower leg R22.42
== END 2024-05-28 11:08 | disposition home or self-care (01) ==
PROVIDERS: PCP Family Medicine; Visit Provider Surgery Vascular Surgery
DX: I83.12 Varicose veins of left lower extremity with inflammation (principal); R22.42 Localized swelling, mass and lump, left lower limb
CPT/HCPCS: 99214

== ENCOUNTER → 2024-05-28 10:54 | Outpatient (BNVA) | payer MEDICAID, SELFPAY | PROVIDERS: PCP Family Medicine; Visit Provider Surgery Vascular Surgery | DX: I83.12 Varicose veins of left lower extremity with inflammation (principal); R22.42 Localized swelling, mass and lump, left lower limb | CPT/HCPCS: 99212 ==

== ENCOUNTER 2024-07-20 14:09 | Outpatient (REF) | payer MEDICAID, SELFPAY ==
--- OUTSIDE RECORDS SUMMARY | 2024-07-20 16:57 | XMS_ITS | Encounter Summary ---
Author Organization [employer] Address [address] [place] [address] Care Team Providers Care Utilization Specialist Name Role Phone Mai Mcclain MD Primary Care Provider [phone] Encounter Details Date Type Department Care Team ([facility] st Contact Info) Description 07/20/2024 1:15 PM EST Office Visit [facility] MED & PEDS [address] [place], [place] [phone] Gregor Mack MD [address] [place], [place] [phone] Left lower quadrant abdominal pain (Primary Dx); Other constipation Social History Tobacco Use Types Packs/Day Years Used Date Smoking Tobacco: Never Passive Smoke Exposure: Never Smokeless Tobacco: Never Alcohol Use Standard Drinks/Week Comments Never 0 (1 standard drink = 0.6 oz pur e alcohol) Depression Answer Date Recorded Patient Health Questionnaire-9 Score 0 10/29/2022 Housing Stability Answer Date Recorded What is your housing situation today? I have rachel jack 04/30/[address] you li ve. Do you have problems with any of the following? None of the above 04/30/2024 Food Insecurity Answer Date Recorded Within the past 12 months, y ou worried that your food would run out before you got money to buy more: Never True 04/30/2024 Within the past 12 months,th e food you bought just didn't last and you didn't have enough money to get more: Never True 04/2024 Transportation Answer Date Recorded In the past 12 months, has l ack of transportation kept you from medical appts, meetings, work or from getting things needed for daily living? No 04/30/2024 Utilities Answer Date Recorded In the past 12 months, has t he electric, gas, oil or water company threatened to shut off services in your home? No 04/30/2024 Depression Answer Date Recorded Patient Health Questionnaire-2 Score 0 05/11/2024 Internet Access Answer Date Recorded Internet Access Q1 Yes 04/30/2024 Internet Access Q2 Not on file 04/30/2024 Comments Unknown Sex and Gender Information Value Date Recorded Sex Assigned at Female 03/19/2022 10:14 AM EDT Legal Sex Female 10:14 AM EDT Gender Identity Female 03/19/2022 10:14 AM EDT Sexual Orientation Straight 03/19/2022 10 :14 AM EDT documented as of this encounter Last Filed Vital Signs Vital Sign Reading Time Taken Comments Blood Pressure 107/70 07/20/2024 1:28 PM EST Pulse 78 07/20/2024 1:28 PM EST Temperature 36.7 ??C (98 ??F) 07/20/2024 1:28 PM EST Respiratory Rate 20 07/20/2024 1:28 PM EST Oxygen Saturation 99% 07/20/2024 1:28 PM EST Inhaled Oxygen Concentration - - Weight 59.9 kg (132 lb) 07/20/2024 1:28 PM EST Height 157.5 cm (5' 2 ) 07/20/2024 1:28 PM EST Body Mass Index 24.14 07/20/2024 1:28 PM EST documented in this encounter Progress Notes * Gregor Mack MD - 07/20/2024 1:15 PM EST Images from the original note were not included. Subjective Patient ID: Beatriz Espinoza is a 38 y.o. female who presents for No chief complaint on file.. HPI Note from triage reviewed: She states that she has been having weird pains on her left side of lower belly. Pt. States she has been constipated x 2 days. Pt. Has been drinking prune juice but, has not felt any real relief. Advised to switch to pear juice to see if that is helpful. No fever. No pain with urination. This pain comes and goes x 2 weeks. Pt. States that she got the pain Dull after working out this am. Pt. States she drinks plenty opf water daily. Pt. Wants to be seen and declines [facility] walk in. History confirmed. No BM or urge to use the bathroom in the last 2 days despite a normal regular diet. Never had similar problem before. Patient Active Problem List Diagnosis Sjogren's syndrome (CMS/HCC) Idiopathic urticaria Fibromyalgia Umbilical hernia without obstruction and without gangrene Thrombophlebitis of superficial veins of left lower extremity Intractable episodic headache Current Outpatient Medications on File Prior to Visit Medication Sig Dispense Refill albuterol 108 (90 Base) MCG/ACT inhaler Inhale 2 puffs every 4 (four) hours if needed for wheezing or shortness of breath. 18 g 1 Diclofenac Sodium 1 % gel Apply 2 g topically if needed in the morning, at noon, in the evening, and at bedtime (pain). 150 g 3 EPINEPHrine (Epipen) 0.3 MG/0.3ML injection syringe 0.3 MG (0.3 ML) INTRAMUSCULARLY EVERY 4 HOURS NEEDED FOR ANAPHYLAXIS ibuprofen 600 MG tablet Take 1 tablet (600 mg) by mouth 3 times daily. 90 tablet 1 naproxen (Naprosyn) 500 MG tablet Take 1 tablet (500 mg) by mouth 2 times daily. 30 tablet 1 Spacer/Aero-Holding Chambers (OptiChamber Liyah) misc 1 each every 4 (four) hours if needed (asthma). 1 each 0 No current facility-administered medications on file prior to visit. Allergies Allergen Reactions Bee Venom Anaphylaxis Duloxetine Oxycodone-Acetaminophen Other reaction(s): vomiting Review of Systems Constitutional: Negative for appetite change, chills and diaphoresis. HENT: Negative for dental problem, drooling and ear discharge. Gastrointestinal: Positive for constipation. Negative for abdominal distention, abdominal pain and diarrhea. Skin: Negative for pallor. Objective BP 107/70 (BP Location: Left arm, Patient Position: Sitting, BP Cuff Size: Adult) Pulse 78 Temp98 ??F (36.7 ??C) (Oral) Resp 20 Ht 5' 2 (1.575 m) Wt 132 lb (59.9 kg) SpO2 99% BMI 24.14 kg/m?? Physical Exam Constitutional: General: She is not in acute distress. Appearance: Normal appearance. She is not ill-appearing, toxic-appearing or diaphoretic. Cardiovascular: Heart sounds: No murmur heard. Pulmonary: Effort: Pulmonary effort is normal. Abdominal: Tenderness: There is abdominal tenderness. Comments: Tenderness of the left lower quadrant Neurological: Mental Status: She is alert. Assessment/Plan Diagnoses and all orders for this visit: Left lower quadrant abdominal pain - XR KUB and Upright 2 Views; Future - CBC auto differential; Future - C-reactive Protein; Future - Sed Rate by Modified Westergren; Future Other constipation - polyethylene glycol, PEG, 3350 (Miralax) 17 g packet; Take 17 g by mouth Once per day for 3 days. Increase fluid intake Patient will be contacted with the results of the workup for further management. Differential diagnosis discussed. All questions answered. documented in this encounter Plan of Treatment Scheduled Orders Name Type Priority Associated Diagnoses Orde r Schedule XR KUB and Upright 2 Views Imaging Routine Left lower quadrant abdominal pain Expected: 07/20/2024, Expires: 07/20/2025 CBC auto differential Lab Routine Left lower quadrant abdominal pain Expected: 07/20/2024 (Approximate), Expires: 07/20/2025 C-reactive Protein Lab Routine Left lower quadrant abdominal pain Expected: 07/20/2024 (Approximate), Expires: 07/20/2025 Sed Rate by Modified Westergren Lab Routine Left lower quadrant abdominal pain Expected: 07/20/2024, Expires: 07/20/2025 documented as of this encounter Visit Diagnoses Diagnosis Left lower quadrant abdominal pain- Primary Other constipation documented in this encounter Additional Health Concerns Assessment Noted Time PHQ-9 Depression Total Score: 0 10/30/19 23 10:59 AM EDT documented as of this encounter Care Teams Utilization Specialist Relationship Specialty Start Date End Date Mai Mcclain MD [address] [place] [address] PCP - General Family Medicine 02/09/22 documented as of this encounter
--- OUTSIDE RECORDS SUMMARY | 2024-07-20 16:57 | XMS_ITS | Encounter Summary ---
Author Organization [employer] Address [address] [place] [address] Care Team Providers Care Wire Products Inspector Name Role Phone Mai Mcclain MD Primary Care Provider [phone] Encounter Details Date Type Department Care Team (Latest Contact Info) Description 06/23/2024 Travel Social History Tobacco Use Types Packs/Day Years Used Date Smoking Tobacco: Never Passive Smoke Exposure: Never Smokeless Tobacco: Never Alcohol Use Standard Drinks/Week Comments Never 0 (1 standard drink = 0.6 oz pur e alcohol) Depression Answer Date Recorded Patient Health Questionnaire-9 Score 0 10/29/2022 Housing Stability Answer Date Recorded What is your housing situation today? I have rachelabena jack 04/30/[address] you [...] AM EDT documented as of this encounter Plan of Treatment Not on file documented as of this encounter Visit Diagnoses Not on filedocumented in this encounter Additional Health Concerns Assessment Noted Time PHQ-9 Depression Total Score: 0 10/30/19 23 10:59 AM EDT documented as of this encounter Care Teams Wire Products Inspector Relationship Specialty Start Date End Date Mai Mcclain MD [address] [place] [address] PCP - General Family Medicine 02/09/22 documented as of this encounter
--- OUTSIDE RECORDS SUMMARY | 2024-07-20 16:57 | XMS_ITS | Encounter Summary ---
Author Organization [employer] Address [address] [facility] [address] [place] [address] Care Team Providers Care Director Of Sustainability Name Role Phone Mai Mcclain MD Primary Care Provider [phone] Reason for Visit * Reason Comments Med Refill Encounter Details Date Type Department Care Team ([facility] st Contact Info) Description 11/08/2022 Refill [facility] MED & PEDS [address] [place], [place] [phone] Mai Mcclain MD [address] [place], [place] [phone] Social History Tobacco Use Types Packs/Day Years Used Date Smoking Tobacco: Never Passive Smoke Exposure: Never Smokeless Tobacco: Never Alcohol Use Standard Drinks/Week Comments Never 0 (1 standard drink = 0.6 oz pur e alcohol) Depression Answer Date Recorded Patient Health Questionnaire-9 Score 0 10/29/2022 Depression Answer Date Recorded Patient Health Questionnaire-2 Score 0 10/29/2022 Comments Unknown Sex and Gender Information Value [...] documented as of this encounter Care Teams Director Of Sustainability Relationship Specialty Start Date End Date Mai Mcclain MD [address] [place] [address] PCP - General Family Medicine 02/09/22 documented as of this encounter
--- OUTSIDE RECORDS SUMMARY | 2024-07-20 16:57 | XMS_ITS | Encounter Summary ---
Author Organization [employer] Address [address] [place] [address] Care Team Providers Care Portable Machine Sander Name Role Phone Mai Mcclain MD Primary Care Provider Reason for Visit * Reason Onset Date Comments Nurse Triage 07/20/2024 Encounter Details Date Type Department Care Team ([facility] st Contact Info) Description 07/20/2024 Telephone [facility] MEDICINE [address] [place] [address] Mai Mcclain MD [address] [place], [place] [phone] Nurse Triage Social History Tobacco Use Types Packs/Day Years [...] the past 12 months, has t he [employer], gas, oil or water Curiously threatened to shut off services in your [...] AM EDT documented as of this encounter Miscellaneous Notes * Telephone Encounter - Alicja Locke RN - 07/20/2024 9:07 AM EST Called pt. She states that she has been having weird pains on her left side of lower belly. Pt. States she has been constipated x 2 days. Pt. Has been drinking prune juice but, has not felt any realrelief. Advised to switch to pear juice to see if that is helpful. No fever. No pain with urination. This pain comes and goes x 2 weeks. Pt. States that she got the pain Dull after working out this a m. Pt. States she drinks plenty opf water daily. Pt. Wants to be seen and declines [facility] walk in. Protocol Used: Abdominal Pain - Female (Adult) Protocol-Based Disposition: See in Office or Video Visit Today Appt. 115pm. In [facility]. Video visit not offered Positive Triage Questions: * Moderate pain (e.g., interferes with normal activities that comes and goes (cramps) lasts > 24hours (Exception: Pain with Vomiting or Diarrhea - see that Protocol.) * Patient wants to be seen * All higher-acuity triage questions were negative Care Advice Discussed: * Rest * Drink Clear Fluids * Diet * Pass a Stool * Telephone Encounter - Alison Morrissey - 07/20/2024 8:58 AM EST Symptom: Flank Pain (left side) Outcome: Schedule a same-day appointment or talk to a nurse or provider today Reason: Caller denied all higher acuity questions The caller accepted this outcome. [phone] documented in this encounter Plan of Treatment Not on file documented as of this encounter Visit Diagnoses Not on filedocumented in this encounter Additional Health Concerns Assessment Noted Time PHQ-9 Depression Total Score: 0 10/30/19 10:59 AM EDT documented as of this encounter Care Teams Portable Machine Sander Relationship Specialty Start Date End Date Mai Mcclain MD [address] [place] [address] PCP - General Family Medicine 02/09/22 documented as of this encounter
--- OUTSIDE RECORDS SUMMARY | 2024-07-20 16:57 | XMS_ITS | Encounter Summary ---
Author Organization [employer] Address [address] [place] [address] Care Team Providers Care Manufacturing Group Leader Name Role Phone Mai Mcclain MD Primary Care Provider [phone] Encounter Details Date Type Department Care Team (Latest Contact Info) Description 07/20/2024 Travel Social History Tobacco Use Types Packs/Day [...] documented as of this encounter Care Teams Manufacturing Group Leader Relationship Specialty Start Date End Date Mai Mcclain MD [address] [place] [address] PCP - General Family Medicine 02/09/22 documented as of this encounter
--- OUTSIDE RECORDS SUMMARY | 2024-07-20 16:57 | XMS_ITS | Encounter Summary ---
Author Organization [employer] Address [address] [place] [address] Care Team Providers Care Dinkey Engine Firer/Fireman Name Role Phone Mai Mcclain MD Primary Care Provider Encounter Details Date Type Department Care Team ([facility] st Contact Info) Description 06/23/2024 9:20 AM EST Office Visit [facility] [address] [place], [place] [phone] Rosas Merlos MD [address] [place] [address] Influenza-like symptoms (Primary Dx); Cough in adult Social History Tobacco Use Types Packs/Day Years [...] Sign Reading Time Taken Comments Blood Pressure 105/68 06/23/2024 9:26 AM EST Pulse 70 06/23/2024 9:26 AM EST Temperature 36 ??C (96.8 ??F) 06/23/2024 9:26 AM EST Respiratory Rate 20 06/23/2024 9:26 AM EST Oxygen Saturation 100% 06/23/2024 10:11 AM EST Inhaled Oxygen Concentration - - Weight 59.9 kg (132 lb 2 oz) 06/23/2024 9:26 AM EST Height 152.4 cm (5') 06/23/2024 9:26 AM EST Body Mass Index 25.8 06/23/2024 9:26 AM EST documented in this encounter Progress Notes * Rosas Merlos MD - 06/23/2024 9:20 AM EST Subjective Patient ID: Beatriz Espinoza is a 38 y.o. female. HPI Yesterday Beatriz had onset yesterday of dry cough, runny nose, headache, ringing in ears. No fever, n/v/d. Had SOB in gym this Am that resolved. Has family h/o asthma Lives with 4 children. LMP=06/02 Never smoked. 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 Patient Active Problem List Diagnosis Sjogren's syndrome (CMS/HCC) Idiopathic urticaria Fibromyalgia Umbilical hernia without obstruction and without gangrene Thrombophlebitis of superficial veins of left lower extremity Intractable episodic headache The following portions of the chart were reviewed this encounter and updated as appropriate: Tobacco Allergies Meds Problems Med Hx Surg Hx Fam Hx Review of Systems Constitutional: Negative for fever. HENT: Positive for rhinorrhea and tinnitus. Respiratory: Positive for cough. Negative for shortness of breath. Cardiovascular: Negative for chest pain. Gastrointestinal: Negative for abdominal pain. Skin: Negative for rash. Neurological: Positive for headaches. Objective Physical Exam Constitutional: Appearance: Normal appearance. HENT: Right Ear: Tympanic membrane, ear canal and external ear normal. Left Ear: Tympanic membrane, ear canal and external ear normal. Nose: Nose normal. Mouth/Throat: Mouth: Mucous membranes are moist. Pharynx: Oropharynx is clear. Eyes: Conjunctiva/sclera: Conjunctivae normal. Pupils: Pupils are equal, round, and reactive to light. Cardiovascular: Rate and Rhythm: Normal rate and regular rhythm. Heart sounds: No murmur heard. Pulmonary: Effort: Pulmonary effort is normal. Breath sounds: Normal breath sounds. Musculoskeletal: General: Normal range of motion. Cervical back: No tenderness. Skin: Findings: No rash. Neurological: Mental Status: She is alert. Gait: Gait is intact. Psychiatric: Mood and Affect: Mood normal. Behavior: Behavior normal. Procedures Assessment/Plan Diagnoses and all orders for this visit: Influenza-like symptoms Negative rapid Covid and Influenza tests. Covid PCR and Flu tests pending. Prescribed albuterol HFA with spacer to use prn cough. Rtc if not improving. - POCT Rapid Influenza A TALLEY ID NOW - POCT Rapid Influenza B TALLEY ID NOW - POCT Rapid Covid-19 BinaxNOW Other orders - albuterol 108 (90 Base) MCG/ACT inhaler; Inhale 2 puffs every 4 (four) hours if needed for wheezing or shortness of breath. - Spacer/Aero-Holding Chambers (OptiChamber Liyah) misc; 1 each every 4 (four) hours if needed (asthma). documented in this encounter Plan of Treatment Not on file documented as of this encounter Procedures Procedure Name Priority Date/Time Associated Diagnosis Comments POCT INFLUENZA A (ID NOW RAPID MOLECULAR) Routine 06/23/2024 10:13 AM EST Cough in adult POCT INFLUENZA B (ID NOW RAPID MOLECULAR) Routine 06/23/2024 10:12 AM EST Cough in adult POCT RAPID COVID ANTIGEN Routine 06/23/2024 10:12 AM EST Cough in adult documented in this encounter Results * POCT Rapid Influenza A TALLEY ID NOW (06/23/2024 10:13 AM EST) Influenza A Negative Negative, Indeterminate [facility] QC Media Lot # [id number] [facility] Lot# Expiration Date [facility] Swab 06/23/2024 10:1 3 AM EST us Rosas Merlos MD POINT OF CARE TEST ENTER/EDIT OR DERABLES Final Result Performing Organization Address [facility] Co de Phone Number [facility] [address] [place] [address] [phone] * POCT Rapid Covid-19 BinaxNOW (06/23/2024 10:12 AM EST) Rapid COVID Ag Negative QC Media Lot # [id number] Lot# Expiration Date Swab 06/23/2024 10:1 2 AM EST us Rosas Merlos MD POINT OF CARE TEST ENTER/EDIT OR DERABLES Final Result * POCT Rapid Influenza B TALLEY ID NOW (06/23/2024 10:12 AM EST) Influenza B Negative Negative, Indeterminate [facility] QC Media Lot # [id number] [facility] Lot# Expiration Date [facility] Swab 06/23/2024 10:1 2 AM EST us Rosas Merlos MD POINT OF CARE TEST ENTER/EDIT OR DERABLES Final Result Performing Organization Address [facility]/ZIP Co de Phone Number [facility] [address] [place] [phone] documented in this encounter Visit Diagnoses Diagnosis Influenza-like symptoms- Primary Other general symptoms Cough in adult documented in this encounter Additional Health Concerns Assessment Noted Time PHQ-9 Depression Total Score: 0 10/30/19 23 10:59 AM EDT documented as of this encounter Care Teams Dinkey Engine Firer/Fireman Relationship Specialty Start Date End Date Mai Mcclain MD [address] [place] [address] PCP - General Family Medicine 02/09/22 documented as of this encounter
--- OUTSIDE RECORDS SUMMARY | 2024-07-20 16:57 | XMS_ITS | Clinical Summary ---
Author Organization [employer] Address [address] [place] [address] Care Team Providers Care Divorce Mediator Name Role Phone Mai Mcclain MD Primary Care Provider [phone] Allergies Active Allergy Reactions Criticality Noted Date Comments Bee Venom Anaphylaxis High 01/02/2023 Duloxetine 05/29/2022 Oxycodone-Acetaminophen 05/29/2022 Other reaction(s): vomiting Medications * This document contains information received from the source organization and may not represent a complete record from that organization. EPINEPHrine (Epipen) 0.3 MG/0.3ML injection syringe 0.3 MG (0.3 ML) INTRAMUSCULARLY EVERY 4 HOURS NEEDED FOR ANAPHYLAXIS 12/16/19 23 Active ibuprofen 600 MG tablet Take 1 tablet (600 mg) by mouth 3 times daily. 90 tablet 1 01/24/20 23 Active naproxen (Naprosyn) 500 MG tablet Take 1 tablet (500 mg) by mouth 2 times daily. 30 tablet 1 05/11/20 24 025 Active Diclofenac Sodium 1 % gel Apply 2 g topically if needed in the morning, at noon, in the evening, and at bedtime (pain). 150 g 3 05/11/20 24 Active albuterol 108 (90 Base) MCG/ACT inhaler Inhale 2 puffs every 4 (four) hours if needed for wheezing or shortness of breath. 18 g 1 06/23/19 25 026 Active Spacer/Aero-Hold ing Chambers (OptiChamber Liyah) misc 1 each every 4 (four) hours if needed (asthma). 1 each 06/23/19 25 Active polyethylene glycol, PEG, 3350 (Miralax) 17 g packetIndication s:Other constipation Take 17 g by mouth Once per day for 3 days. 3 packet 07/21/19 25 025 Active Active Problems Problem Noted Date Diagnosed Date Intractable episodic headache 02/24/2024 Assessment & Plan (02/24/2024 11:26 AM EDT): Prescribing Elavil for Sx. Relevant Medication Amitriptyline (Elavil) 25 MG tablet Thrombophlebitis of superfic ial veins of left lower extremity 02/07/2023 Assessment & Plan (02/07/2023 4:34 PM EDT): Treat with eliquis, has f/up with vasc already setup. Reviewed she will need anticoag for 45 days, but will defer duration to vasc surg. Umbilical hernia without obstruction and without gangrene 10/29/2022 Sjogren's syndrome 06/05/2022 Idiopathic urticaria 06/05/2022 Fibromyalgia 06/05/2022 Assessment & Plan (11/12/2022 9:46 AM EDT): Patient with history of fibromyalgia with chronic leg pain reports amitriptyline was too sedating. Will substitute for cymbalta and refer to physical therapy. Assessment & Plan (10/29/2022 11:18 AM EDT): Patient with history of fibromyalgia and worsening left leg pain. Will start on amitriptyline 25 mg and cyclobenzaprine 5 mg, nightly. Resolved Problems Problem Noted Date Diagnosed Date Resolved Date Acute cystitis without hematuria 02/24/2024 05/11/2024 Assessment & Plan (02/24/2024 11:29 AM EDT): UA was WNL. Prescribing Macrobid for infection. Relevant Medication Nitrofurantoin, Macrocrystal-Monohydrate (Macrobid) 100 MG Capsule Acute otitis externa of right ear 12/20/2022 05/11/2024 Assessment & Plan (12/20/2022 9:11 AM EDT): Resolved. No evidence of infection, scab, or debris. Ok to discontinue ear drops. Advised do not use any Q-Tips. Massage area around ear. Let us know if symptoms worsen or do not improve. Recurrent UTI 06/05/2022 10/29/2022 Encounters Date Type Department Care Team Description 07/20/2024 1:15 PM EST Office Visit [facility] [address] [place] [address] Gregor Mack MD Left lower quadrant abdominal pain (Primary Dx); Other constipation 07/20/2024 Travel 07/20/[address] [address] Mai Mcclain MD Nurse Triage 06/23/2024 9:20 AM EST [facility] [address] [address] Rosas Merlos MD Influenza-like symptoms (Primary Dx); Cough in adult 06/23/2024 Travel 06/19/[address] [address] Mai Mcclain MD Nurse Triage 05/15/2024 Telephone [facility] [address] [address] Luana Jones DO results 05/11/2024 9:15 AM EST Office Visit [address] [address] Luana Jones DO Routine history and physical examination of adult (Primary Dx); Fibromyalgia; Acute wrist pain, right; BMI 23.0-23.9, adult 05/11/2024 Travel 05/07/2024 Orders Only [facility] External Provider, [facility] 04/30/2024 Patient Outreach [address] [address] Mai Mcclain MD Pre-visit Planning (SDOH screening negative and tobacco screening negative) 04/30/[address] [address] Mai Mcclain MD Results 04/28/2024 11:00 AM EST Office Visit [facility] [address] [place] [address] Name, MD Irvin Acute wrist pain, right (Primary Dx) from Last 3 Months Immunizations Name Administration Dates Next Due DTaP 04/06/1992, 2,11/10/1987,1987,03/28/1987 Hep A, ped/adol, 3 dose 11/03/1998,04/29/1998, HiB, unspecified 10/15/1991 IPV 10/13/1991,07/18/1987,03/28/1987 MMR 06/05/2017,01/16/1998 TD (adult), 2 Lf tetanus tox oid, preservative free, adsorbed 02/09/1999 Tdap 10/03/2017 Varicella 11/03/1998 Family History Medical History Relation Name Comments Arthritis Father Thyroid cancer Mother Kidney disease Sister Diabetes type I Son Relation Name Status Comments Father Mother Sister Son Social History Tobacco Use Types Packs/Day Years Used Date Smoking Tobacco: Never Passive Smoke Exposure: Never Smokeless Tobacco: Never Tobacco Cessation:Counseling Given: Not Answered Alcohol Use Standard Drinks/Week Comments Never 0 [...] Orientation Straight 03/19/2022 10 :14 AM EDT Last Filed Vital Signs Vital Sign Reading [...] Mass Index 24.14 07/20/2024 1:28 PM EST Plan of Treatment Health Maintenance Due Date Last Done Comments Dental Prophylaxis 1986 Family Planning (PISQ) 2001 Hepatitis B Vaccines (1 of 3 - 19+ 3-dose series) 2005 Dental Oral Exam 01/14/2023 07/16/2022 Dental X-Ray: Bitewings 07/17/2023 07/16/2022 COVID-19 Vaccine ( season) 2024 02/22/2021, 02/01/2021 Influenza Vaccine (#1) 2024 SDOH Screening 04/30/2025 04/30/2024 Alcohol/Substance Use Screening 05/11/2025 05/11/2024 Depression Screening 05/11/2025 05/11/2024, 10/30/19 Tobacco Screening 06/23/2025 06/23/2024 Dental X-Ray: Full Mouth 07/17/2025 07/16/2022 Cervical Cancer Screening 11/15/2025 HPV/Cotest 11/15/2025 11/15/2020 Pap Smear 11/15/2025 11/15/2020 DTaP/Tdap/Td Vaccines (6 - Td or Tdap) 10/04/2027 10/03/2017, 02/09/1999, 04/06/1992, Additional history exists Zoster Vaccines (1 of 2) 2036 RSV Patients and Patients Aged 60 years or older (1 - 1-dose 75+ series) 2061 IPV Vaccines Completed 10/13/1991, 06/21, 03/28/1987 HIB Vaccines Aged Out 10/15/1991 No longer eligi ble based on patient's age to complete this topic HIV Screening Completed 12/23/2023 Hepatitis C Screening Completed 12/23/2023 HPV Vaccines Aged Out No longer eligi ble based on patient's age to complete this topic Hepatitis A Vaccines Aged Out No long er eligible based on patient's age to complete this topic Meningococcal Vaccine Aged Out No kenisha debby eligible based on patient's age to complete this topic Pneumococcal Vaccine: Pediatrics (0 to 5 Years) and At-Risk Patients (6 to 49) Years) Aged Out No longer eligible based on patient's age to complete this topic RSV under 20 months Aged Out No longe r eligible based on patient's age to complete this topic Rotavirus Vaccines Aged Out No longer eligible based on patient's age to complete this topic Procedures Procedure Name Priority Date/Time Associated Diagnosis Comments POCT INFLUENZA A (ID NOW RAPID MOLECULAR) Routine 06/23/2024 10:13 AM EST Cough in adult POCT RAPID COVID ANTIGEN Routine 06/23/2024 10:12 AM EST Cough in adult POCT INFLUENZA B (ID NOW RAPID MOLECULAR) Routine 06/23/2024 10:12 AM EST Cough in adult T-SPOT(R).TB Routine 05/11/2024 10:13 AM EST Routine history and physical examination of adult BASIC METABOLIC PANEL Routine 05/11/2024 10:13 AM EST Routine history and physical examination of adult CBC Routine 05/11/2024 10:13 AM EST Routine history and physical examination of adult HEMOGLOBIN A1C Routine 05/11/2024 10:13 AM EST Routine history and physical examination of adult HEPATIC FUNCTION PANEL Routine 10:13 AM EST Routine history and physical examination of adult VITAMIN D,25-OH,TOTAL,IA Routine 05/11/2024 10:13 AM EST Routine history and physical examination of adult TSH Routine 05/11/2024 10:13 AM EST Routine history and physical examination of adult LIPID PANEL, STANDARD Routine 05/11/2024 10:13 AM EST Routine history and physical examination of adult T4, FREE Routine 05/11/2024 10:13 AM EST Routine history and physical examination of adult US VENOUS DUPLEX LE LT Routine 8:35 AM EST XR WRIST 3+ VIEWS RIGHT Routine 04/28/2024 11:03 AM EST Acute wrist pain, right HEPATITIS C ANTIBODY Routine 12/23/2023 3:20 PM EDT HIV 1/2 ANTIGEN/ANTIBODY, FOURTH GENERATION W/RFL Routine 12/23/2023 3:20 PM EDT INTRAORAL - COMPLETE SERIES OF RADIOGRAPHIC IMAGES Routine 07/16/2022 8:00 AM EST COMPREHENSIVE ORAL EVALUATION - NEW OR ESTABLISHED PATIENT Routine 07/16/2022 8:00 AM EST HM PAP/HPV Routine 11/15/2020 from Last 3 Months or Most Recently Relevant to Health Maintenance Results * POCT Rapid Influenza A TALLEY ID NOW (06/23/2024 10:13 AM EST) Influenza A Negative Negative, Indeterminate [facility] QC Media Lot # [id number] [facility] Lot# Expiration Date [id number] [facility] Swab 06/23/2024 10:1 3 AM EST us Rosas Merlos MD POINT OF CARE TEST ENTER/EDIT OR DERABLES Final Result Performing Organization Address City/[facility] Co de Phone Number [facility] [address] [place] [phone] * POCT Rapid Influenza B TALLEY ID NOW (06/23/2024 10:12 AM EST) Pathologist [facility] Influenza B Negative Negative, Indeterminate [facility] QC Media Lot # [id number] [facility] Lot# Expiration Date [facility] Swab 06/23/2024 10:1 2 AM EST us Rosas Merlos MD POINT OF CARE TEST ENTER/EDIT OR DERABLES Final Result Performing Organization Address City/[facility]/ZIP Co de Phone Number [facility] [address] [place] [phone] * POCT Rapid Covid-19 BinaxNOW (06/23/2024 10:12 AM EST) [facility] Rapid COVID Ag Negative QC Media Lot # [id number] Lot# Expiration Date Swab 06/23/2024 10:1 2 AM EST us Rosas Merlos MD POINT OF CARE TEST ENTER/EDIT OR DERABLES Final Result * (ABNORMAL) Vitamin D, 25-Hydroxy, Total, Immunoassay (05/11/2024 10:13 AM EST) Pathologist [facility] Vitamin D 25-OH Total 29.5(L) >30 ng/mL [facility] Comment:Health Based Referen ce Values*< 20 ng/mL Tyqpvivts19-10 ng/mL Insufficient> 30 ng/mL Sufficient*Jacky CASTILLO. N Engl J Med. 2007;357:266-280Care must be taken in interpreting Vitamin D results fromdifferent laboratories and methodologies. Published datademonstrated that results from patients undergoinghemodialysis may show a negative bias when tested withvarious automated 25-OH vitamin D assays when compared toLC-MS/MS.When testing samples from patients whose predominant form ofVitamin D is Vitamin D2, such as patients receiving VitaminD2 supplementation, results that are subtherapeutic shouldbe confirmed with another method such as LC-MS/MS. Blood Venous blood specimen / Unknown 05/11/2024 10:13 AM EST 05/11/2024 11:40 AM EST us Luana Jones DO LAB BLOOD ORDERABLES Final R esult [facility] [address] [place] [phone] * T-SPOT??.TB (05/11/2024 10:13 AM EST) T Spot TB Negative Negative [facility] Comment:A negative test resu lt does not exclude the possibilityof exposure to or infection with Mycobacteriumtuberculosis (M. tuberculosis). Patients with recentexposure to TB infected individuals exhibiting anegative T-SPOT.TB result should be considered forretesting within 6 weeks or if other relevant clinicalsymptoms indicate. Results from T-SPOT.TB testing mustbe used in conjunction with each individual'sepidemiological history, current medical status,and results of other diagnostic evaluations.The T-SPOT.TB test is qualitative and results arereported as positive, borderline, or negative, giventhat the test controls perform as expected. In linewith the Centers for Disease Control and Prevention's2010 recommendation to report quantitative measurementsalongside the qualitative result, the laboratoryprovides spot counts for informational purposes only.The T-SPOT.TB test should not be interpreted as aquantitative test. TS PANEL A 0 [facility] TS PANEL B 0 [facility] Negative Control Passed [facility] Positive Control Passed [facility] Comment:For additional infor soy, please refer tohttp://education.[employer]/faq/OUR954(This link is being provided for informational/educational purposes only.)THIS TEST WAS PERFORMED AT:[facility] [facility]/[id number] [place] [address]NHAYAODROSALINA VILLASEÑOR MD,PHD 05/11/2024 10:1 3 AM EST 05/11/2024 11:40 AM EST us Luana Jones DO LAB BLOOD ORDERABLES Final R esult [facility] [address], [place] [phone] * (ABNORMAL) CBC (05/11/2024 10:13 AM EST) White Blood Count 5.9 4.8 - 10.8 X10*3/uL [facility] Red Blood Count 4.26 4.20 - 5.50 X10*6/uL [facility] Hemoglobin 11.5(L) 12.0 - 16.0 g/dl [facility] Hematocrit 36.0(L) 37.0 - 47.0 % [facility] Mean Corpuscular Volume 84.5 80.0 - 98.0 fL [facility] Mean Corpuscular Hemoglobin 27.0 27.0 - 33.0 pg [facility] Mean Corpuscular HGB Conc 31.9 31.0 - 35.0 g/dl [facility] Red Cell Distribution Width 14.4 11.0 - 16.0 % [facility] Platelet Count 296 160 - 400 X10*3/uL [facility] Mean Platelet Volume 10.9 9.4 - 12.3 fL [facility] NRBC Pct Auto 0.0 0.0 - 0.2 /100WBC [facility] NRBC Abs Auto 0.000 0.0 - 0.012 X10*3/uL [facility] Blood Venous blood specimen / Unknown 05/11/2024 10:13 AM EST 05/11/2024 11:37 AM EST Luana Robert DO LAB BLOOD ORDERABLES Final R esult Performing Organization Address [facility] Co de Phone Number [facility] [address] [place] [phone] * TSH (05/11/2024 10:13 AM EST) Thyroid Stimulating Hormone 1.14 0.32 - 4.0 uIU/mL [facility] Comment:TSH 3rd Generation ( [facility]) Blood Venous blood specimen / Unknown 05/11/2024 10:13 AM EST 05/11/2024 11:40 AM EST Luana Robert DO LAB BLOOD ORDERABLES Final R [facility] Performing Organization Address [facility] de Phone Number [facility] [address] [place] [phone] * T4, Free (05/11/2024 10:13 AM EST) Free T4 (Free Thyroxine) 0.95 0.71 - 1.85 ng/dL [facility] Blood Venous blood specimen / Unknown 05/11/2024 10:13 AM EST 05/11/2024 11:40 AM EST Luana Robert DO LAB BLOOD ORDERABLES Final R esult Performing Organization Address [facility] Co de Phone Number [facility] [address] [place] [phone] * Hemoglobin A1c (05/11/2024 10:13 AM EST) Hemoglobin A1c 5.1 <6.0 % [facility] Comment:Hemoglobin A1C Refer ence Range Adults: 4.8 - 6.0 % Non diabetic: < 6.0 % Goal: < 7.0 %Additional Action Suggested: > 8.0 %Note: Hemoglobin A1c results are invalid for patients with abnormal amounts of HbF. Blood transfusions may impact the HbA1c concentration in the patient sample. Estimated Average Glucose 100 mg/dL [facility] Comment:eAG = Estimated ave rage glucose which is %A1C expressed asaverage glucose, using the formula of the [id number] Glucose study (ADAG), Diabetes Care, Vol.31,#8,2007 Blood Venous blood specimen / Unknown 05/11/2024 10:13 AM EST 05/11/2024 11:37 AM EST Luana Bernadettems DO LAB BLOOD ORDERABLES Final R esult Performing Organization Address [facility] Co de Phone Number [facility] [address] [place] [address] [phone] * Hepatic Function Panel (05/11/2024 10:13 AM EST) Bilirubin, Total 0.3 0.0 - 1.0 mg/dL [facility] Bilirubin, Direct 0.1 0.0 - 0.5 mg/dL [facility] Aspartate Amino Transferase 26 5 - 31 U/L [facility] Alanine Aminotransferase 18 0 - 31 U/L [facility] Total Protein 7.4 6.5 - 8.0 g/dL [facility] Albumin Level 4.0 3.5 - 5.0 g/dL [facility] Alkaline Phosphatase 55 39 - 117 U/L [facility] Blood Venous blood specimen / Unknown 05/11/2024 10:13 AM EST 05/11/2024 11:40 AM EST Luana Bernadettems DO LAB BLOOD ORDERABLES Final R esult Performing Organization Address [facility] Co de Phone Number [facility] [address] [place] [address] [phone] * Lipid Panel, Standard (05/11/2024 10:13 AM EST) Triglycerides 109 <150 mg/dL [facility] Comment:Desirable Triglyceri de: less than 150 mg/dLBorderline High Triglyceride 150-199 mg/dLHigh Triglyceride: 200-499 mg/dLVery High Triglyceride: greater than or equal to 5OO mg/dL Cholesterol 163 <200 mg/dL [facility] Comment:Desirable Cholestero l: less than 200 mg/dLBorderline High Cholesterol: 200-239 mg/dLHigh Cholesterol: greater than 239 mg/dL LDL Cholesterol Calculated 89 <100 mg/dL [facility] Comment:Desirable LDL: less than 100 mg/dLNear Optimal/Above Optimal LDL: 110- 129 mg/dLBorderline High LDL: 130-159 mg/dLHigh LDL: 160-189 mg/dLVery High LDL: greater than or equal to 190 mg/dL HDL Cholesterol 53 >40 mg/dL [facility] Comment:Desirable HDL: great er than 40 mg/dL Note: This HDL assay may give artificially low results in patients with liver disease. Blood Venous blood specimen / Unknown 05/11/2024 10:13 AM EST 05/11/2024 11:40 AM EST us Luana Jones DO LAB BLOOD ORDERABLES Final R esult [facility] [address] [place] [phone] * (ABNORMAL) Basic Metabolic Panel (05/11/2024 10:13 AM EST) Sodium 140 135 - 145 mmol/L [facility] Potassium 3.9 3.3 - 5.1 mmol/L [facility] Chloride 108 96 - 108 mmol/L [facility] Carbon Dioxide 28 22 - 29 mmol/L [facility] Anion Gap 8(L) 12 - 20 [facility] Urea Nitrogen (BUN) 17(H) 9 - 16 mg/dL [facility] Creatinine, Serum 0.86 0.5 - 1.4 mg/dL [facility] Estimated Glomerular Filt Rate >60 [facility] Comment:Chronic Kidney Disea se: Estimated GFR < 60 mL/min/1.71y9Rppeqd Kidney Disease: Estimated GFR < 15 mL/min/1.73m2 Glucose 81 60 - 115 mg/dL [facility] Calcium 8.5 8.4 - 10.2 mg/dL [facility] Blood Venous blood specimen / Unknown 05/11/2024 10:13 AM EST 05/11/2024 11:40 AM EST us Luana Jones DO LAB BLOOD ORDERABLES Final R esult [facility] [address] [place] [phone] * US VENOUS DUPLEX LE LT (05/07/2024 8:35 AM EST) Anatomical Region Laterality Modality Abdomen Ultrasound 05/07/2024 8:35 AM EST Narrative 05/07/2024 1:07 PM EST ? [facility] ?[address] ?[place] [address] ? Ultrasound Report ? Signed ? Patient: Alexis,Beatriz ?MR#: [id number] ?? 7 ? : 1985 ?Acct:[id number] ? Age/Sex: 38 / F ?ADM Date: 05/07/24 ? Loc: HO.US ? Attending Dr: Mando Hernandez MD ? Ordering Physician: Mando Hernandez MD ?? Date of Service: 05/07/24 ?? Procedure(s): US venous duplex LE LT ?? Accession Number(s): [id number] ? cc: Mando Hernandez MD; Mai Mcclain MD ? EXAMINATION: ?? US LOWER EXTREMITY (REFLUX EXAM), LEFT ? CLINICAL INDICATION: ?? Chronic venous insufficiency with left lower extremity varicose veins ?? with inflammation ? COMPARISON: ?? 03/20/2023 ? TECHNIQUE: ?? Color flow triplex imaging and compression Doppler was performed to ?? evaluate both the deep and the superficial systems of the left lower ?? extremity. To evaluate the superficial system, the examination was ?? performed in the upright position. Color-flow Doppler ultrasound and ?? compression ultrasound were utilized. In addition, maneuvers were ?? utilized to demonstrate reflux. ? FINDINGS: ? 1. DEEP VENOUS DOPPLER ULTRASOUND: ?? Common Femoral Vein: Compressible, normal respiratory variation and ?? augmented flow. ? Femoral Vein: Compressible, normal color flow and augmentation. ?? Popliteal Vein: Compressible, normal augmentation. ? Deep Reflux: There is no evidence of reflux in the deep system in ?? either the common femoral vein, superficial femoral vein or the ?? popliteal vein. ? There is no evidence of a Wilkerson's cyst. ? 2. SUPERFICIAL VENOUS DOPPLER ULTRASOUND: ? GREAT SAPHENOUS VEIN: ?? Saphenofemoral Junction: 0.5 cm; Reflux: 0 ms ?? Proximal Thigh: 0.2 cm; Reflux: 0 ms ?? Mid Thigh: 0.2 cm; Reflux: 0 ms ?? Above Knee: 0.3 cm; Reflux: 0 ms ?? At Knee: 0.3 cm; Reflux: 0 ms ?? Below Knee: 0.2 cm; Reflux: 0 ms ?? Mid Calf: 0.1 cm; Reflux: 0 ms ?? Ankle: 0.2 cm; Reflux: 0 ms ? DUPLICATED MEDIAL GREAT SAPHENOUS VEIN: ?? Diameter: None imaged ?? Reflux: NA ? DUPLICATED LATERAL GREAT SAPHENOUS VEIN: ?? Diameter: 8.2 cm ?? Reflux: None ? SMALL SAPHENOUS VEIN: ?? Saphenopopliteal Junction: 0.3 cm; Reflux: 0 ms ?? Proximal: 0.1 cm; Reflux: 0 ms ?? Distal: 0.2 cm; Reflux: 0 ms ? VEIN OF GIACOMINI: ?? Size: NA ?? Reflux: NA ? PERFORATORS: ?? Location: None significant ?? Size: NA ?? Reflux: NA ? VARICOSITIES: ?? Location: None imaged ?? Size: NA ?? Reflux: NA ? US/US venous duplex LE LT ?? IMPRESSION: ?? 1. ??Left great saphenous vein is normal in size and there is no ?? significant reflux. ?? 2. ??No significant varicosities or perforators. ? Electronically signed by: ??Stuart Vu MD ??05/07/2024 01:04 PM EST RP ? Dictated By: ?Stuart Vu MD ? Signed By: ?<Electronically signed by Stuart Vu MD in OV> ? 05/07/ 1304 ? DD/ 0835 ? TD/TT: 12/19/24 0910 ? Buck Presser: ? Procedure Note Donotuseinterpreter, Image - 05/07/2024 [place] [address] Ultrasound Report Signed Patient: Michael Espinoza#: [id number] 7 : 1985Acct:[id number] Age/Sex: 38 / FADM Date: 05/07/24 Loc: HO.US Attending Dr: Mando Hernandez MD Ordering Physician: Mando Hernandez MD Date of Service: 05/07/24 Procedure(s): US venous duplex LE LT Accession Number(s): [id number] cc: Mando Hernandez MD; Mai Mcclain MD EXAMINATION: US LOWER EXTREMITY (REFLUX EXAM), LEFT CLINICAL INDICATION: Chronic venous insufficiency with left lower extremity varicose veins with inflammation COMPARISON: 03/20/2023 TECHNIQUE: Color flow triplex imaging and compression Doppler was performed to evaluate both the deep and the superficial systems of the left lower extremity. To evaluate the superficial system, the examination was performed in the upright position. Color-flow Doppler ultrasound and compression ultrasound were utilized. In addition, maneuvers were utilized to demonstrate reflux. FINDINGS: 1. DEEP VENOUS DOPPLER ULTRASOUND: Common Femoral Vein: Compressible, normal respiratory variation and augmented flow. Femoral Vein: Compressible, normal color flow and augmentation. Popliteal Vein: Compressible, normal augmentation. Deep Reflux: There is no evidence of reflux in the deep system in either the common femoral vein, superficial femoral vein or the popliteal vein. There is no evidence of a Wilkerson's cyst. 2. SUPERFICIAL VENOUS DOPPLER ULTRASOUND: GREAT SAPHENOUS VEIN: Saphenofemoral Junction: 0.5 cm; Reflux: 0 ms Proximal Thigh: 0.2 cm; Reflux: 0 ms Mid Thigh: 0.2 cm; Reflux: 0 ms Above Knee: 0.3 cm; Reflux: 0 ms At Knee: 0.3 cm; Reflux: 0 ms Below Knee: 0.2 cm; Reflux: 0 ms Mid Calf: 0.1 cm; Reflux: 0 ms Ankle: 0.2 cm; Reflux: 0 ms DUPLICATED MEDIAL GREAT SAPHENOUS VEIN: Diameter: None imaged Reflux: NA DUPLICATED LATERAL GREAT SAPHENOUS VEIN: Diameter: 8.2 cm Reflux: None SMALL SAPHENOUS VEIN: Saphenopopliteal Junction: 0.3 cm; Reflux: 0 ms Proximal: 0.1 cm; Reflux: 0 ms Distal: 0.2 cm; Reflux: 0 ms VEIN OF GIACOMINI: Size: NA Reflux: NA PERFORATORS: Location: None significant Size: NA Reflux: NA VARICOSITIES: Location: None imaged Size: NA Reflux: NA US/US venous duplex LE LT IMPRESSION: 1. Left great saphenous vein is normal in size and there is no significant reflux. 2. No significant varicosities or perforators. Electronically signed by: Stuart Vu MD 05/07/2024 01:04 PM EST RP Dictated By: Stuart Vu MD Signed By: <Electronically signed by Stuart Vu MD in OV> 05/07/24 1304 DD/ 0835 TD/TT: 05/07/24 0910 Buck Presser: [facility] External Provider IMG US PROCEDURES Final Result * XR Wrist 3+ Views Right (04/28/2024 11:03 AM EST) Anatomical Region Laterality Modality Upper Extremities, Wrist Right Radiogr aphic Imaging 04/28/2024 11:0 3 AM EST Narrative 04/30/2024 11:01 AM EST ?[facility] ?[address] ?[place] [address] ?XRay Report ? Signed ? Patient: Alexis,Beatriz ?MR#: [id number] ?? 7 ? : 1985 ?Acct:[id number] ? Age/Sex: 38 / F ?ADM Date: 12/10/24 ? Loc: HO.HHCX ? Attending Dr: Irvin Guerrero MD ? Ordering Physician: Irvin Guerrero MD ?? Date of Service: 04/28/24 ?? Procedure(s): XR wrist RT min 3V ?? Accession Number(s): [id number] ? cc: Irvin Guerrero MD; Mai Mcclain MD ? EXAMINATION: ?? XR WRIST, RIGHT ? CLINICAL INFORMATION: ?? Acute pain after heavy lifting for one day ? COMPARISON: ?? None available. ? TECHNIQUE: ?? PA, lateral, oblique, and scaphoid views of the right wrist. ? FINDINGS: ?? The bones and soft tissues are normal. No fracture. Alignment is ?? anatomic with normal joint spaces. No erosions or abnormal soft tissue ?? calcifications. ? XR/XR wrist RT min 3V ?? IMPRESSION: ?? Normal right wrist. ? Electronically signed by: ??Brian Whitlock MD ??04/30/2024 10:58 AM EST RP ? Dictated By: ?Brian Whitlock MD ? Signed By: ?<Electronically signed by Brian Whitlock MD in OV> ?04/30/24 1058 ? DD/ 1103 ? TD/TT: 04/28/24 1114 ? Buck Presser: ? Procedure Note Dorina, Cortney - 05/01/[address] [address] XRay Report Signed Patient: Michael Espinoza#: [id number] 7 : 1985Acct:[id number] Age/Sex: 38 / FADM Date: 04/28/24 Loc: HO.HHCX Attending Dr: Irvin Guerrero MD Ordering Physician: Irvin Guerrero MD Date of Service: 04/28/24 Procedure(s): XR wrist RT min 3V Accession Number(s): [id number] cc: Irvin Guerrero MD; Mai Mcclain MD EXAMINATION: XR WRIST, RIGHT CLINICAL INFORMATION: Acute pain after heavy lifting for one day COMPARISON: None available. TECHNIQUE: PA, lateral, oblique, and scaphoid views of the right wrist. FINDINGS: The bones and soft tissues are normal. No fracture. Alignment is anatomic with normal joint spaces. No erosions or abnormal soft tissue calcifications. XR/XR wrist RT min 3V IMPRESSION: Normal right wrist. Electronically signed by: Brian Whitlock MD 04/30/2024 10:58 AM EST Dictated By: Brian Whitlock MD Signed By: <Electronically signed by Brian Whitlock MD in OV> 04/30/24 1058 DD/ 1103 TD/TT: 04/28/24 1114 Buck Presser: us Irvin Guerrero MD IMG XR PROCEDURES Edited Result - Final * Hepatitis C Ab (12/23/2023 3:20 PM EDT) Hepatitis C Antibody Nonreactive Nonreactive [facility] Comment:Antibodies to HCV no t detected; does not exclude early acuteHCV infection. 12/23/2023 3:20 PM EDT 12/23/2023 5:36 PM EDT Generic External Data Provider LAB BLOOD ORDERAB LES Final Result [facility] [address] [place] [phone] * HIV-1/2 Antigen and Antibodies, Fourth Generation, with Reflexes (12/23/2023 3:20 PM EDT) HIV AB/AG Nonreactive Nonreactive [facility] Comment:HIV-1 p24 Ag and/or HIV-1/HIV-2 Ab not detected.A test result that is nonreactive does not exclude thepossibility of exposure to or infection with HIV-1 and/orHIV-2. Nonreactive results in this assay for individualswith prior exposure to HIV-1 and/or HIV-2 may be due toantigen and antibody levels that are below the limit ofdetection of this assay.The [employer] HIV Ag/Ab Combo assay result andsupplemental assay results should be interpreted inconjunction with the patient's clinical presentation,history and other laboratory results. If the results areinconsistent with clinical evidence, additional testing issuggested to confirm the result. 12/23/2023 3:20 PM EDT 12/23/2023 5:36 PM EDT us Generic External Data Provider LAB BLOOD ORDERAB LES Final Result [facility] [address] [place] [address] [phone] * Pap Smear (11/15/2020) Pap Negative for intraephithelial lesion or malignancy Negative for intraephithelial lesion or malignancy, Other HPV Undetected Undetected, Indeterminate, Quantitative, Not Detected Historical Provider HEALTH MAINTENANCE Final Result from Last 3 Months or Most Recently Relevant to Health Maintenance Insurance [facility] C[facility] MEDICAID STAND ADULT Care Teams Divorce Mediator Relationship Specialty Start Date End Date Mai Mcclain MD [address] [place] [address] [place] [address] PCP - General Family Medicine 02/09/22
--- OUTSIDE RECORDS SUMMARY | 2024-07-20 16:57 | XMS_ITS | Encounter Summary ---
Author Organization [employer] Address [address] 7[address] [place] [address] Care Team Providers Care Arboriculturist Name Role Phone Mai Mcclain MD Primary Care Provider [phone] Reason for Visit * Reason Comments Med Refill Encounter Details Date Type Department Care Team (Late st Contact Info) Description 02/21/2024 Refill [facility] [address] [place] [address] Destiny Vu MD [address] [place] [address] Social History Tobacco Use Types Packs/Day Years Used Date Smoking Tobacco: Never Passive Smoke Exposure: Never Smokeless Tobacco: Never Alcohol Use Standard Drinks/Week Comments Never 0 (1 standard drink = 0.6 oz pur e alcohol) Depression Answer Date Recorded Patient Health Questionnaire-9 Score 0 10/29/2022 Housing Stability Answer Date Recorded What is your housing situation today? I have rachelabena jack 03/06/[address] you li ve. Do you have problems with any of the following? None of the above 03/06/2023 Food Insecurity Answer Date Recorded Within the past 12 months, y ou worried that your food would run out before you got money to buy more: Never True 03/06/2023 Within the past 12 months,th e food you bought just didn't last and you didn't have enough money to get more: Never True Transportation Answer Date Recorded In the past 12 months, has l ack of transportation kept you from medical appts, meetings, work or from getting things needed for daily living? No 03/06/2023 Utilities Answer Date Recorded In the past 12 months, has t he electric, gas, oil or water company threatened to shut off services in your home? No 03/06/2023 Depression Answer Date Recorded Patient Health Questionnaire-2 [...] documented as of this encounter Care Teams Arboriculturist Relationship Specialty Start Date End Date Mai Mcclain MD [address] [place] [address] PCP - General Family Medicine 02/09/22 documented as of this encounter
--- OUTSIDE RECORDS SUMMARY | 2024-07-20 16:57 | XMS_ITS | Encounter Summary ---
Author Organization [employer] Address [address] [place] [address] Care Team Providers Care Director Of Retail Merchandising Name Role Phone Mai Mcclain MD Primary Care Provider Encounter Details Date Type Department Care Team (Late st Contact Info) Description 04/17/2023 Abstract [facility] MEDICINE [address] [place], [place] [phone] Sarah Chung Social History Tobacco Use Types Packs/Day Years Used Date Smoking Tobacco: Never Passive Smoke Exposure: Never Smokeless Tobacco: Never Alcohol Use Standard Drinks/Week Comments Never 0 (1 standard drink = 0.6 oz pur e alcohol) Depression Answer Date Recorded Patient Health Questionnaire-9 Score 0 10/29/2022 Housing Stability Answer Date Recorded What is your housing situation today? I have rachel jack 03/06/[address] you [...] Procedure Name Priority Date/Time Associated Diagnosis Comments PAP/HPV Routine 11/15/2020 documented in this encounter Results * Pap Smear (11/15/2020) Pap Negative for intraephithelial lesion or malignancy Negative for intraephithelial lesion or malignancy, Other HPV Undetected Undetected, Indeterminate, Quantitative, Not Detected Historical Provider HEALTH MAINTENANCE Final Result documented in this encounter Visit Diagnoses Not on filedocumented in this encounter Additional Health Concerns Assessment Noted Time PHQ-9 Depression Total Score: 0 10/30/19 23 10:59 AM EDT documented as of this encounter Care Teams Director Of Retail Merchandising Relationship Specialty Start Date End Date Mai Mcclain MD [address] [place] [address] PCP - General Family Medicine 02/09/22 documented as of this encounter
[2024-07-20 17:51] LABS: MANUAL DIFF FLAG NO
[2024-07-20 18:04] LABS: Basophils Absolute Auto 0.1 X10*3/uL (0.0-0.2); Basophils Percent Auto 0.7 % (0-2); Eosinophils Absolute Auto 0.2 X10*3/uL (0.0-0.4); Eosinophils Percent Auto 2.9 % (0-4); Hematocrit 34.6 % (37.0-47.0); Imm Gran Abs Auto 0.02 X10*3/uL (0.00-0.03); Imm Gran Pct Auto 0.3 % (0.0-0.4); Lymphocytes Absolute Auto 1.8 X10*3/uL (1.2-4.9); Mean Corpuscular HGB Conc 31.8 g/dl (31.0-35.0); Mean Corpuscular Hemoglobin 25.7 pg (27.0-33.0); Mean Corpuscular Volume 80.8 fL (80.0-98.0); Mean Platelet Volume 11.5 fL (9.4-12.3); Monocytes Absolute Auto 0.5 X10*3/uL (0.1-1.2); Monocytes Percent Auto 7.2 % (2-11); Neutrophils Absolute Auto 4.9 x10*3/uL (2.0-8.3); Neutrophils Percent Auto 64.9 % (45-73); Platelet Count 310 X10*3/uL (160-400); Red Blood Count 4.28 X10*6/uL (4.20-5.50); Red Cell Distribution Width 15.9 % (11.0-16.0); White Blood Count 7.5 X10*3/uL (4.8-10.8)
[2024-07-20 18:08] LABS: C Reactive Protein 0.24 mg/dL (< or = 0.50)
[2024-07-20 19:04] LABS: Erythrocyte Sedimentation Rate 9 MM/HR (0-20)
== END 2024-07-20 14:10 | disposition home or self-care (01) ==
LOC: HO.CHCLDS 14:09
PROVIDERS: Visit Provider Internal Medicine
DX: R10.32 Left lower quadrant pain (principal)
CPT/HCPCS: 36415; 85025; 85652; 86140

== ENCOUNTER 2024-07-21 08:38 | Outpatient (REF) | payer MEDICAID, SELFPAY ==
--- NOTE | ~2024-07-21 | XR_ITS ---
EXAMINATION: XR ABDOMEN KUB CLINICAL INDICATION: left lower quadrant pain COMPARISON: None available. TECHNIQUE: AP view of the abdomen. FINDINGS: There is large amount of stool seen in colon without significant distention. No radiopaque renal calculi. No organomegaly. Scattered phleboliths seen in the pelvis. No gross bony abnormality. XR/XR KUB IMPRESSION: Moderate constipation. Electronically signed by: Massimo Tobar MD 07/21/2024 02:04 PM DAVIE
--- OUTSIDE RECORDS SUMMARY | 2024-07-21 09:14 | XMS_ITS | Encounter Summary ---
Author Organization [employer] Address [address] [place] [address] Care Team Providers Care Predictive Maintenance Specialist Name Role Phone Mai Mcclain MD Primary Care Provider [phone] Reason for Visit * Reason Comments Med Refill Encounter Details Date Type Department Care Team (Late st Contact Info) Description 02/21/2024 Refill [facility] [address] [place] [address] Destiny Vu MD [address] [place] [address] Social History Tobacco Use Types Packs/Day Years [...] documented as of this encounter Care Teams Predictive Maintenance Specialist Relationship Specialty Start Date End Date Mai Mcclain MD [address] [place] [address] PCP - General Family Medicine 02/09/22 documented as of this encounter
--- OUTSIDE RECORDS SUMMARY | 2024-07-21 09:14 | XMS_ITS | Encounter Summary ---
Author Organization [employer] Address [address] [facility] 7t [place] [address] Care Team Providers Care Integrated Logistics Operations Manager Name Role Phone Mai Mcclain MD Primary Care Provider [phone] Reason for Visit * Reason Comments Med Refill Encounter Details Date Type Department Care Team ([facility] st Contact Info) Description 11/08/[address] [facility] MED & PEDS [address] [place], [place] [phone] Mai Mcclain MD [address] [place], [place] [phone] Social History Tobacco Use Types Packs/Day Years [...] documented as of this encounter Care Teams Integrated Logistics Operations Manager Relationship Specialty Start Date End Date Mai Mcclain MD [address] [place] [address] PCP - General Family Medicine 02/09/22 documented as of this encounter
--- OUTSIDE RECORDS SUMMARY | 2024-07-21 09:14 | XMS_ITS | Encounter Summary ---
Author Organization [employer] Address [address] [facility] 7t [place] [address] Care Team Providers Care Special Procedures Tech Name Role Phone Mai Mcclain MD Primary Care Provider [phone] Encounter Details Date Type Department Care Team ([facility] st Contact Info) Description 07/20/2024 1:15 PM EST Office Visit [facility] CHC MED & PEDS [address] [place], [place] [phone] Gregor Mack MD [address] [place], [place] [phone] Left lower quadrant abdominal pain (Primary Dx); [...] Pt. Wants to be seen and declines [facility] walk in. History confirmed. No BM or [...] Expires: 07/20/2025 documented as of this encounter Procedures Procedure Name Priority Date/Time Associated Diagnosis Comments CBC WITH AUTO DIFFERENTIAL Routine 07/20/2024 2:11 PM EST Left lower quadrant abdominal pain SED RATE BY MODIFIED WESTERGREN Routine 07/20/2024 2:11 PM EST Left lower quadrant abdominal pain C-REACTIVE PROTEIN Routine 07/20/2024 2: 11 PM EST Left lower quadrant abdominal pain documented in this encounter Results * Sed Rate by Modified Westergren (07/20/2024 2:11 PM EST) Erythrocyte Sedimentation Rate 9 0 - 20 MM/HR [facility] Comment:Patients with polycy themia and many hemoglobin abnormalitiesmay have depressed sed rates whereas patients with anemiamay have elevated sed rates. Blood Venous blood specimen / Unknown 07/20/2024 2:11 PM EST 07/20/2024 5:45 PM EST us Gregor Mack MD LAB BLOOD ORDERABLES Final Result [facility] [address] [place] [phone] [phone] * C-reactive Protein (07/20/2024 2:11 PM EST) [facility] C Reactive Protein 0.24 < or = 0.50 mg/dL [facility] Blood Venous blood specimen / Unknown 07/20/2024 2:11 PM EST 07/20/2024 5:45 PM EST us Gregor Mack MD LAB BLOOD ORDERABLES Final Result [facility] [address] [place] [address] [phone] * (ABNORMAL) CBC auto differential (07/20/2024 2:11 PM EST) [facility] White Blood Count 7.5 4.8 - 10.8 X10*3/uL [facility] Red Blood Count 4.28 4.20 - 5.50 X10*6/uL [facility] Hemoglobin 11.0(L) 12.0 - 16.0 g/dl [facility] Hematocrit 34.6(L) 37.0 - 47.0 % [facility] Mean Corpuscular Volume 80.8 80.0 - 98.0 fL [facility] Mean Corpuscular Hemoglobin 25.7(L) 27.0 - 33.0 pg [facility] Mean Corpuscular HGB Conc 31.8 31.0 - 35.0 g/dl [facility] Red Cell Distribution Width 15.9 11.0 - 16.0 % [facility] Platelet Count 310 160 - 400 X10*3/uL [facility] Mean Platelet Volume 11.5 9.4 - 12.3 fL [facility] Neutrophils Percent Auto 64.9 45 - 73 % [facility] Imm Gran Pct Auto 0.3 0.0 - 0.4 % [facility] Lymphocytes Percent Auto 24.0 20 - 40 % [facility] Monocytes Percent Auto 7.2 2 - 11 % [facility] Eosinophils Percent Auto 2.9 0 - 4 % [facility] Basophils Percent Auto 0.7 0 - 2 % [facility] NRBC Pct Auto 0.0 0.0 - 0.2 /100WBC [facility] Neutrophils Absolute Auto 4.9 2.0 - 8.3 x10*3/uL [facility] Imm Gran Abs Auto 0.02 0.00 - 0.03 X10*3/uL [facility] Lymphocytes Absolute Auto 1.8 1.2 - 4.9 X10*3/uL [facility] Monocytes Absolute Auto 0.5 0.1 - 1.2 X10*3/uL [facility] Eosinophils Absolute Auto 0.2 0.0 - 0.4 X10*3/uL [facility] Basophils Absolute Auto 0.1 0.0 - 0.2 X10*3/uL [facility] NRBC Abs Auto 0.000 0.0 - 0.012 X10*3/uL [facility] Blood Venous blood specimen / Unknown 07/20/2024 2:11 PM EST 07/20/2024 5:45 PM EST us Gregor Mack MD LAB BLOOD ORDERABLES Final Result [facility] [address] [place] [phone] documented in this encounter Visit Diagnoses Diagnosis Left lower quadrant abdominal pain- Primary Other constipation documented in this encounter Additional Health Concerns Assessment Noted Time PHQ-9 Depression Total Score: 0 10/30/19 23 10:59 AM EDT documented as of this encounter Care Teams Special Procedures Tech Relationship Specialty Start Date End Date Mai Mcclain MD [address] [place] [address] PCP - General Family Medicine 02/09/22 documented as of this encounter
--- OUTSIDE RECORDS SUMMARY | 2024-07-21 09:14 | XMS_ITS | Encounter Summary ---
Author Organization [employer] Address [address] [place] [address] Care Team Providers Care Glass Cut Off Tender Name Role Phone Mai Mcclain MD Primary Care Provider [phone] Encounter Details Date Type Department Care Team (Late st Contact Info) Description 04/17/2023 Abstract [facility] MEDICINE [address] [place], [place] [phone] Sarah Chung Social History Tobacco Use Types [...] documented as of this encounter Care Teams Glass Cut Off Tender Relationship Specialty Start Date End Date Mai Mcclain MD [address] [place] [address] PCP - General Family Medicine 02/09/22 documented as of this encounter
--- OUTSIDE RECORDS SUMMARY | 2024-07-21 09:14 | XMS_ITS | Encounter Summary ---
Author Organization [employer] Address [address] [place] [address] Care Team Providers Care Goldbeater Name Role Phone Mai Mcclain MD Primary Care Provider [phone] Encounter Details Date Type Department Care Team [...] documented as of this encounter Care Teams Goldbeater Relationship Specialty Start Date End Date Mai Mcclain MD [address] [place] [address] PCP - General Family Medicine 02/09/22 documented as of this encounter
--- OUTSIDE RECORDS SUMMARY | 2024-07-21 09:14 | XMS_ITS | Clinical Summary ---
Author Organization [employer] Address [address] [facility] 7[address] [place] [address] Care Team Providers Care [employer] Safety Engineer Name Role Phone Mai Mcclain MD Primary Care Provider [phone] Allergies Active Allergy Reactions Criticality Noted Date [...] days. 3 packet 07/21/19 25 025 Active ferrous sulfate (Fe Tabs) 325 (65 Fe) MG EC tabletIndication s:Normocytic anemia Take 1 tablet (325 mg) by mouth with breakfast. Do not crush, chew, or split. 30 tablet 2 07/21/19 25 026 Active Active Problems Problem Noted Date Diagnosed Date Intractable episodic headache 02/24/2024 Assessment & Plan (02/24/2024 11:26 AM EDT): Prescribing Elavil for Sx. Relevant Medication Amitriptyline (Elavil) 25 MG tablet Thrombophlebitis of superfic ial veins of left lower extremity 02/07/2023 Assessment & Plan (02/07/2023 4:34 PM EDT): Treat with azael, has f/up with vasc already setup. Reviewed [...] Encounters Date Type Department Care Team Description 07/21/2024 Refill [facility] [address] [place] [address] Gregor Mack MD Other constipation 07/20/2024 1:15 PM EST Office Visit [facility] [address] [place] [address] Gregor Mack MD Left lower quadrant abdominal pain (Primary Dx); Other constipation 07/20/2024 Orders Only [address] [address] Gregor Mack MD Normocytic anemia (Primary Dx) 07/20/2024 Travel 07/20/[address] [address] Mai Mcclain MD Nurse Triage 06/23/2024 9:20 AM EST Office Visit [facility] [address] [place] [phone] Rosas Merlos MD Influenza-like symptoms (Primary Dx); Cough in adult 06/23/2024 Travel 06/19/[address] [address] Mai Mcclain MD Nurse Triage 05/15/2024 Telephone [facility] [address] [place] [phone] Luana Jones DO results 05/11/2024 9:15 AM EST Office Visit [address] [address] Luana Jones DO Routine history and physical examination of adult (Primary Dx); Fibromyalgia; Acute wrist pain, right; BMI 23.0-23.9, adult 05/11/2024 Travel 05/07/2024 Orders Only [facility] External Provider, [facility] 04/30/2024 Patient Outreach [facility] [address] [place] [phone] Mai Mcclain MD Pre-visit Planning (SDOH screening negative and tobacco screening negative) 04/30/2024 Telephone [facility] [address] [place] [address] [phone] Mai Mcclain MD Results 04/28/2024 11:00 AM EST Office Visit [facility] [address] [place] [phone] Name, MD Irvin Acute wrist pain, right [...] Procedure Name Priority Date/Time Associated Diagnosis Comments SED RATE BY MODIFIED WESTERGREN Routine 07/20/2024 2:11 PM EST Left lower quadrant abdominal pain C-REACTIVE PROTEIN Routine 07/20/2024 2: 11 PM EST Left lower quadrant abdominal pain CBC WITH AUTO DIFFERENTIAL Routine 07/20/2024 2:11 PM EST Left lower quadrant abdominal pain POCT INFLUENZA A (ID NOW RAPID MOLECULAR) [...] adult US VENOUS DUPLEX LE LT Routine 4 8:35 AM EST XR WRIST 3+ VIEWS [...] Recently Relevant to Health Maintenance Results * (ABNORMAL) CBC auto differential (07/20/2024 2:11 PM EST) White Blood Count 7.5 4.8 - 10.8 X10*3/uL [facility] Red Blood Count 4.28 4.20 - 5.50 X10*6/uL [facility] Hemoglobin 11.0(L) 12.0 - 16.0 g/dl [facility] Hematocrit 34.6(L) 37.0 - 47.0 % [facility] Mean Corpuscular Volume 80.8 80.0 - 98.0 fL [facility] Mean Corpuscular Hemoglobin 25.7(L) 27.0 - 33.0 pg [facility] Mean Corpuscular HGB Conc 31.8 31.0 - 35.0 g/dl [facility] Red Cell Distribution Width 15.9 11.0 - 16.0 % [facility] Platelet Count 310 160 - 400 X10*3/uL [facility] Mean Platelet Volume 11.5 9.4 - 12.3 fL [facility] Neutrophils Percent Auto 64.9 45 - 73 % [facility] Imm Gran Pct Auto 0.3 0.0 - 0.4 % [facility] Lymphocytes Percent Auto 24.0 20 - 40 % [facility] Monocytes Percent Auto 7.2 2 - 11 % [facility] Eosinophils Percent Auto 2.9 0 - 4 % [facility] Basophils Percent Auto 0.7 0 - 2 % [facility] NRBC Pct Auto 0.0 0.0 - 0.2 /100WBC [facility] Neutrophils Absolute Auto 4.9 2.0 - 8.3 x10*3/uL [facility] Imm Gran Abs Auto 0.02 0.00 - 0.03 X10*3/uL [facility] Lymphocytes Absolute Auto 1.8 1.2 - 4.9 X10*3/uL [facility] Monocytes Absolute Auto 0.5 0.1 - 1.2 X10*3/uL [facility] Eosinophils Absolute Auto 0.2 0.0 - 0.4 X10*3/uL [facility] Basophils Absolute Auto 0.1 0.0 - 0.2 X10*3/uL [facility] NRBC Abs Auto 0.000 0.0 - 0.012 X10*3/uL [facility] Blood Venous blood specimen / Unknown 07/20/2024 2:11 PM EST 07/20/2024 5:45 PM EST us Gregor Mack MD LAB BLOOD ORDERABLES Final Result Performing Organization Address City/[facility]/ZIP Co de Phone Number [facility] [address] [place] [phone] * Sed Rate by Modified Soledadren (07/20/2024 2:11 PM EST) Erythrocyte Sedimentation Rate 9 0 - 20 MM/HR [facility] Comment:Patients with polycy themia and many hemoglobin abnormalitiesmay have depressed sed rates whereas patients with anemiamay have elevated sed rates. Blood Venous blood specimen / Unknown 07/20/2024 2:11 PM EST 07/20/2024 5:45 PM EST us Gregor Mack MD LAB BLOOD ORDERABLES Final Result [facility] [address] [place] [phone] * C-reactive Protein (07/20/2024 2:11 PM EST) C Reactive Protein 0.24 < or = 0.50 mg/dL [facility] Blood Venous blood specimen / Unknown 07/20/2024 2:11 PM EST 07/20/2024 5:45 PM EST Gregor Mack MD LAB BLOOD ORDERABLES Final Result Performing Organization Address [facility] Phone Number [facility] [address] [place] [phone] * POCT Rapid Influenza A TALLEY ID NOW (06/23/2024 10:13 AM EST) Influenza A Negative Negative, Indeterminate [facility] QC Media Lot # [id number] [facility] Lot# Expiration Date [facility] Swab 06/23/2024 10:1 3 AM EST Rosas Merlos MD POINT OF CARE TEST ENTER/EDIT OR DERABLES Final Result Performing Organization Address [facility] de Phone Number [facility] [address] [place] [phone] * POCT Rapid Influenza B TALLEY ID NOW (06/23/2024 10:12 AM EST) Influenza B Negative Negative, Indeterminate [facility] QC Media Lot # [id number] [facility] Lot# Expiration Date [facility] Swab 06/23/2024 10:1 2 AM EST Rosas Merlos MD POINT OF CARE TEST ENTER/EDIT OR DERABLES Final Result Performing Organization Address [facility]/ZIP Co de Phone Number [facility] [address] [place] [phone] * POCT Rapid Covid-19 BinaxNOW (06/23/2024 10:12 AM EST) [facility] COVID Ag Negative QC Media Lot # [id number] Lot# Expiration Date ,[id number] Swab 06/23/2024 10:1 2 AM EST Rosas Merlos MD POINT OF CARE TEST ENTER/EDIT OR DERABLES Final Result * (ABNORMAL) Vitamin D, 25-Hydroxy, Total, Immunoassay (05/11/2024 10:13 AM EST) [facility] Vitamin D 25-OH Total 29.5(L) >30 ng/mL [facility] Comment:Health Based Referen ce Values*< 20 ng/mL Qezlambio37-11 ng/mL Insufficient> 30 ng/mL Sufficient*Jacky CASTILLO. N [...] AM EST 05/11/2024 11:40 AM EST Luana Jones DO LAB BLOOD ORDERABLES Final R esult [facility] [address] [place] [address] [phone] * T-SPOT??.TB (05/11/2024 10:13 AM EST) [facility] T Spot TB Negative Negative [facility] Comment:A negative test resu lt [...] as aquantitative test. TS PANEL A 0 [facility] TS PANEL B 0 [facility] Negative Control Passed [facility] Positive Control Passed [facility] Comment:For additional infor soy, please refer tohttp://education.[employer]/faq/LRP482(This link is being provided for informational/educational purposes only.)THIS TEST WAS PERFORMED AT:[id number] [place] [address]OAPPBHYROSALINA VILLASEÑOR MD,PHD 05/11/2024 10:1 3 AM EST 05/11/2024 11:40 AM EST us Luana Jones DO LAB BLOOD ORDERABLES Final R esult [facility] [address] [place] [phone] [phone] * (ABNORMAL) CBC (05/11/2024 10:13 AM EST) White Blood Count 5.9 4.8 - 10.8 X10*3/uL [facility] Red Blood Count 4.26 4.20 - 5.50 X10*6/uL [facility] Hemoglobin 11.5(L) 12.0 - 16.0 g/dl [facility] Hematocrit 36.0(L) 37.0 - 47.0 % [facility] Mean Corpuscular Volume 84.5 80.0 - 98.0 fL [facility] Mean Corpuscular Hemoglobin 27.0 27.0 - 33.0 pg [facility] Mean Corpuscular HGB Conc 31.9 31.0 - 35.0 g/dl [facility] Red Cell Distribution Width 14.4 11.0 - 16.0 % [facility] Platelet Count 296 160 - 400 X10*3/uL [facility] Mean Platelet Volume 10.9 9.4 - 12.3 fL [facility] NRBC Pct Auto 0.0 0.0 - 0.2 /100WBC [facility] NRBC Abs Auto 0.000 0.0 - 0.012 X10*3/uL [facility] Blood Venous blood specimen / Unknown 05/11/2024 10:13 AM EST 05/11/2024 11:37 AM EST Luana Jones DO LAB BLOOD ORDERABLES Final R esult Performing Organization Address City/[facility]/ZIP Co de Phone Number [facility] [address] [place] [phone] * TSH (05/11/2024 10:13 AM EST) Thyroid Stimulating Hormone 1.14 0.32 - 4.0 uIU/mL [facility] Comment:TSH 3rd Generation ( Upside) Blood Venous blood specimen / Unknown 05/11/2024 10:13 AM EST 05/11/2024 11:40 AM EST Luana Jones DO LAB BLOOD ORDERABLES Final R esult Performing Organization Address City/[facility]/ZIP Co de Phone Number [facility] [address] [place] [phone] * T4, Free (05/11/2024 10:13 AM EST) Free T4 (Free Thyroxine) 0.95 0.71 - 1.85 ng/dL [facility] Blood Venous blood specimen / Unknown 05/11/2024 10:13 AM EST 05/11/2024 11:40 AM EST Luana Flemingnv DO LAB BLOOD ORDERABLES Final R esult [facility] [address] [place] [phone] * Hemoglobin A1c (05/11/2024 10:13 AM EST) Hemoglobin A1c 5.1 <6.0 % [facility] Comment:Hemoglobin A1C Refer ence Range Adults: 4.8 - 6.0 % Non diabetic: < 6.0 % Goal: < 7.0 %Additional Action Suggested: > 8.0 %Note: Hemoglobin A1c results are invalid for patients with abnormal amounts of HbF. Blood transfusions may impact the HbA1c concentration in the patient sample. Estimated Average Glucose 100 mg/dL [facility] Comment:eAG = Estimated ave rage glucose which is %A1C expressed asaverage glucose, using the formula of the S0Z-GutybhxCvnnhnx Glucose study (ADAG), Diabetes Care, Vol.31,#8,Dec. 2007 Blood Venous blood specimen / Unknown 05/11/2024 10:13 AM EST 05/11/2024 11:37 AM EST Luana Jones DO LAB BLOOD ORDERABLES Final R esult Performing Organization Address City/[facility]/ZIP Co de Phone Number [facility] [address] [place] [phone] * Hepatic Function Panel (05/11/2024 10:13 AM EST) Bilirubin, Total 0.3 0.0 - 1.0 mg/dL [facility] Bilirubin, Direct 0.1 0.0 - 0.5 mg/dL [facility] Aspartate Amino Transferase 26 5 - 31 U/L [facility] Alanine Aminotransferase 18 0 - 31 U/L [facility] Total Protein 7.4 6.5 - 8.0 g/dL [facility] Albumin Level 4.0 3.5 - 5.0 g/dL [facility] Alkaline Phosphatase 55 39 - 117 U/L [facility] Blood Venous blood specimen / Unknown 05/11/2024 10:13 AM EST 05/11/2024 11:40 AM EST us Luana Jones DO LAB BLOOD ORDERABLES Final R esult [facility] [address] [place] [address] [phone] * Lipid Panel, Standard (05/11/2024 10:13 AM EST) Triglycerides 109 <150 mg/dL [facility] Comment:Desirable Triglyceri de: less than 150 mg/dLBorderline High Triglyceride 150-199 mg/dLHigh Triglyceride: 200-499 mg/dLVery High Triglyceride: greater than or equal to 5OO mg/dL Cholesterol 163 <200 mg/dL [facility] Comment:Desirable Cholestero l: less than 200 mg/dLBorderline High Cholesterol: 200-239 mg/dLHigh Cholesterol: greater than 239 mg/dL LDL Cholesterol Calculated 89 <100 mg/dL [facility] Comment:Desirable LDL: less than 100 mg/dLNear Optimal/Above Optimal LDL: 110- 129 mg/dLBorderline High LDL: 130-159 mg/dLHigh LDL: 160-189 mg/dLVery High LDL: greater than or equal to 190 mg/dL HDL Cholesterol 53 >40 mg/dL [facility] Comment:Desirable HDL: great er than 40 mg/dL Note: This HDL assay may give artificially low results in patients with liver disease. Blood Venous blood specimen / Unknown 05/11/2024 10:13 AM EST 05/11/2024 11:40 AM EST Luana Robert DO LAB BLOOD ORDERABLES Final R esult Performing Organization Address City/[facility] Co de Phone Number [facility] [address] [place] [phone] * (ABNORMAL) Basic Metabolic Panel (05/11/2024 10:13 AM EST) Sodium 140 135 - 145 mmol/L [facility] Potassium 3.9 3.3 - 5.1 mmol/L [facility] Chloride 108 96 - 108 mmol/L [facility] Carbon Dioxide 28 22 - 29 mmol/L [facility] Anion Gap 8(L) 12 - 20 [facility] Urea Nitrogen (BUN) 17(H) 9 - 16 mg/dL [facility] Creatinine, Serum 0.86 0.5 - 1.4 mg/dL [facility] Estimated Glomerular Filt Rate >60 [facility] Comment:Chronic Kidney Disea se: Estimated GFR < 60 mL/min/1.17i4Qscguh Kidney Disease: Estimated GFR < 15 mL/min/1.73m2 Glucose 81 60 - 115 mg/dL [facility] Calcium 8.5 8.4 - 10.2 mg/dL [facility] Blood Venous blood specimen / Unknown 05/11/2024 10:13 AM EST 05/11/2024 11:40 AM EST Luana Robert DO LAB BLOOD ORDERABLES Final R esult Performing Organization Address City/[facility]/ZIP Co de Phone Number [facility] [address] [place] [phone] * US VENOUS DUPLEX LE LT (05/07/2024 8:35 AM EST) Anatomical Region Laterality Modality Abdomen Ultrasound 05/07/2024 8:35 AM EST Narrative 05/07/2024 1:07 PM EST ? [facility] ?[address] ?[place] [address] ? Ultrasound Report ? Signed ? Patient: Alexis,Beatriz ?MR#: [id number] ?? 7 ? : 1985 ?Acct:[id number] ? Age/Sex: 38 / F ?ADM Date: 05/07/24 ? Loc: HO.US ? Attending Dr: Mando Hernandez MD ? Ordering Physician: Mando Hernandez MD ?? Date of Service: 05/07/24 ?? Procedure(s): US venous duplex LE LT ?? Accession Number(s): [id number] ? cc: Mando Hernandez MD; Mai Mcclain [...] by Stuart Vu MD in OV> ? 05/07/24 1304 ? DD/ 0835 ? TD/TT: 05/07/24 0910 ? Fur Trapper: ? Procedure Note Dorina, Cortney - 05/07/2024 [place] [address] Ultrasound Report Signed Patient: Michael Espinoza#: [id number] 7 : 1985Acct:[id number] Age/Sex: 38 / FADM Date: 05/07/24 Loc: HO.US Attending Dr: Mando Hernandez MD Ordering Physician: Mando Hernandez MD Date of Service: 05/07/24 Procedure(s): US venous duplex LE LT Accession Number(s): [id number] cc: Madno Hernandez MD; Mai Mcclain MD EXAMINATION: US [...] by: Stuart Vu MD 05/07/2024 01:04 PM [facility] Dictated By: Stuart Vu MD Signed By: <Electronically signed by Stuart Vu MD in OV> 05/07/24 1304 DD/ TD/TT: 05/07/24 0910 Fur Trapper: us [facility] External Provider IMG US PROCEDURES Final Result * XR Wrist 3+ Views Right (04/28/2024 11:03 AM EST) Anatomical Region Laterality Modality Upper Extremities, Wrist Right Radiogr aphic Imaging 04/28/2024 11:0 3 AM EST Narrative 04/30/2024 11:01 AM EST ?[facility] ?[address] ?[place], [place] [address] ?XRay Report ? Signed ? Patient: Alexis,Beatriz ?MR#: [id number] ?? 7 ? : 1985 ?Acct:[id number] ? Age/Sex: 38 / F ?ADM Date: 04/28/24 ? Loc: HO.HHCX ? Attending Dr: Irvin Guerrero MD ? Ordering Physician: Irvin Guerrero MD ?? Date of Service: 04/28/24 ?? Procedure(s): XR wrist RT min 3V ?? Accession Number(s): [id number] ? cc: Irvin Guerrero MD; Mai Mcclain [...] DD/ 1103 ? TD/TT: 04/28/24 1114 ? Fur Trapper: ? Procedure Note Dorina, Image - 05/01/2024 [facility] [address] [place] [address] XRay Report Signed Patient: Michael Espinoza#: [id number] 7 : 1985Acct:[id number] Age/Sex: 38 / FADM Date: 04/28/24 Loc: HO.HHCX Attending Dr: Irvin Guerrero MD Ordering Physician: Irvin Guerrero MD Date of Service: 04/28/24 Procedure(s): XR wrist RT min 3V Accession Number(s): [id number] cc: Irvin Guerrero MD; Mai Mcclain MD [...] by: Brian Whitlock MD 04/30/2024 10:58 AM [facility] Dictated By: Brian Whitlock MD Signed By: <Electronically signed by Brian Whitlock MD in OV> 04/30/24 1058 DD/ 1103 TD/TT: 04/28/24 1114 Fur Trapper: Irvin Guerrero MD IMG XR PROCEDURES Edited Result - Final * Hepatitis C Ab (12/23/2023 3:20 PM EDT) Hepatitis C Antibody Nonreactive Nonreactive [facility] Comment:Antibodies to HCV no t detected; does not exclude early acuteHCV infection. 12/23/2023 3:20 PM EDT 12/23/2023 5:36 PM EDT us Generic External Data Provider LAB BLOOD ORDERAB LES Final Result [facility] [address] [place] [phone] [phone] * HIV-1/2 Antigen and Antibodies, Fourth Generation, with Reflexes (12/23/2023 3:20 PM EDT) HIV AB/AG Nonreactive Nonreactive [facility] Comment:HIV-1 p24 Ag and/or HIV-1/HIV-2 Ab not detected.A test result that is nonreactive does not exclude thepossibility of exposure to or infection with HIV-1 and/orHIV-2. Nonreactive results in this assay for individualswith prior exposure to HIV-1 and/or HIV-2 may be due toantigen and antibody levels that are below the limit ofdetection of this assay.The Stitch Fix HIV Ag/Ab Combo assay result andsupplemental assay results should be interpreted inconjunction with the patient's clinical presentation,history and other laboratory results. If the results areinconsistent with clinical evidence, additional testing issuggested to confirm the result. 12/23/2023 3:20 PM EDT 12/23/2023 5:36 PM EDT us Generic External Data Provider LAB BLOOD ORDERAB LES Final Result [facility] [address] [place] [address] [phone] * Hm Pap Smear (11/15/2020) Pap Negative for intraephithelial lesion or malignancy Negative for intraephithelial lesion or malignancy, Other HPV Undetected Undetected, Indeterminate, Quantitative, Not Detected us Historical Provider HEALTH MAINTENANCE Final Result from Last 3 Months or Most Recently Relevant to Health Maintenance [facility] MEDICAID STAND ADULT Care Teams [employer] Safety Engineer Relationship Specialty Start Date End Date Mai Mcclain MD [address] [place] [address] [place] [address] PCP - General Family Medicine 02/09/22
--- OUTSIDE RECORDS SUMMARY | 2024-07-21 09:14 | XMS_ITS | Encounter Summary ---
Author Organization [employer] Address [address] [facility] [place] [address] Care Team Providers Care Brick Loader Name Role Phone Mai Mcclain MD Primary Care Provider [phone] Reason for Visit * Reason Onset Date Comments Nurse Triage 07/20/2024 Encounter Details Date Type Department Care Team ([facility] st Contact Info) Description 07/20/2024 Telephone [facility] [address] [place] [address] Mai Mcclain MD [address] [place], [place] [phone] Nurse Triage Social History Tobacco Use Types [...] the past 12 months, has t he [employer], gas, oil or water [employer] threatened to shut off services in your [...] Pt. Wants to be seen and declines [facility] walk in. Protocol Used: Abdominal Pain - Female (Adult) Protocol-Based Disposition: See in Office or Video Visit Today Appt. 115pm. In [facility]. Video visit not offered Positive Triage Questions: [...] acuity questions The caller accepted this outcome. [phone] documented in this encounter Plan of Treatment Not on file documented as of this encounter Visit Diagnoses Not on filedocumented in this encounter Additional Health Concerns Assessment Noted Time PHQ-9 Depression Total Score: 0 10/30/19 10:59 AM EDT documented as of this encounter Care Teams Brick Loader Relationship Specialty Start Date End Date Mai Mcclain MD [address] [place] [address] PCP - General Family Medicine 02/09/22 documented as of this encounter
--- OUTSIDE RECORDS SUMMARY | 2024-07-21 09:14 | XMS_ITS | Encounter Summary ---
Author Organization [employer] Address [address] [place] [address] Care Team Providers Care Physical Aerodynamicist Name Role Phone Mai Mcclain MD Primary Care Provider [phone] Encounter Details Date Type Department Care Team ([facility] st Contact Info) Description 06/23/2024 9:20 AM EST Office Visit [facility] [address] [place], [place] [phone] Rosas Merlos MD [address] [place] [address] Influenza-like symptoms (Primary Dx); Cough in adult [...] 4 children. LMP=06/02 Never smoked. 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 Patient Active Problem List Diagnosis [...] AM EST) Influenza A Negative Negative, Indeterminate [facility] QC Media Lot # [id number] [facility] Lot# Expiration Date [facility] Swab 06/23/2024 10:1 3 AM EST us Rosas Merlos MD POINT OF CARE TEST ENTER/EDIT OR DERABLES Final Result Performing Organization Address [facility] Co de Phone Number [facility] [address] [place] [address] [phone] * POCT Rapid Covid-19 BinaxNOW (06/23/2024 10:12 AM EST) Rapid COVID Ag Negative QC Media Lot # [id number] Lot# Expiration Date Swab 06/23/2024 10:1 2 AM EST us Rosas Merlos MD POINT OF CARE TEST ENTER/EDIT OR DERABLES Final Result * POCT Rapid Influenza B TALLEY ID NOW (06/23/2024 10:12 AM EST) Influenza B Negative Negative, Indeterminate [facility] QC Media Lot # [id number] [facility] Lot# Expiration Date [facility] Swab 06/23/2024 10:1 2 AM EST us Rosas Merlos MD POINT OF CARE TEST ENTER/EDIT OR DERABLES Final Result Performing Organization Address [facility]/ZIP Co de Phone Number [facility] [address] [place] [phone] documented in this encounter Visit Diagnoses Diagnosis Influenza-like symptoms- Primary Other general symptoms Cough in adult documented in this encounter Additional Health Concerns Assessment Noted Time PHQ-9 Depression Total Score: 0 10/30/19 23 10:59 AM EDT documented as of this encounter Care Teams Physical Aerodynamicist Relationship Specialty Start Date End Date Mai Mcclain MD [address] [facility] [place] [address] PCP - General Family Medicine 02/09/22 documented as of this encounter
--- OUTSIDE RECORDS SUMMARY | 2024-07-21 09:14 | XMS_ITS | Encounter Summary ---
Author Organization [employer] Address [address] [place] [address] Care Team Providers Care Motion Picture Actor Name Role Phone Mai Mcclain MD Primary Care Provider [phone] Encounter Details Date Type Department Care Team [...] documented as of this encounter Care Teams Motion Picture Actor Relationship Specialty Start Date End Date Mai Mcclain MD [address] [place] [address] PCP - General Family Medicine 02/09/22 documented as of this encounter
--- OUTSIDE RECORDS SUMMARY | 2024-07-21 09:14 | XMS_ITS | Encounter Summary ---
Author Organization [employer] Address 75 [facility] 7t [place] [address] Care Team Providers Care Supervisor Orchard Name Role Phone Mai Mcclain MD Primary Care Provider [phone] Reason for Visit * Reason Comments Med Change Request Encounter Details Date Type Department Care Team ([facility] st Contact Info) Description 07/21/2024 Refill C [facility] [address] [place], [place] [phone] Gregor Mack MD 505 [place], [place] [phone] Other constipation Social History Tobacco Use Types [...] as of this encounter Visit Diagnoses Diagnosis Other constipation documented in this encounter Additional Health Concerns Assessment Noted Time PHQ-9 Depression Total Score: 0 10/30/19 10:59 AM EDT documented as of this encounter Care Teams Supervisor Orchard Relationship Specialty Start Date End Date Mai Mcclain MD [address] [place] [phone] PCP - General Family Medicine 02/09/22 documented as of this encounter
--- OUTSIDE RECORDS SUMMARY | 2024-07-21 09:14 | XMS_ITS | Encounter Summary ---
Author Organization [employer] Address 75 [facility] 7t [place] [address] Care Team Providers Care Obiee Lead Developer Name Role Phone Mai Mcclain MD Primary Care Provider [phone] Encounter Details Date Type Department Care Team (Late st Contact Info) Description 07/20/2024 Orders Only [facility] [address] [place] [address] Gregor Mack MD 505 [place], [place] [phone] Normocytic anemia (Primary Dx) Social History Tobacco Use Types Packs/Day Years [...] as of this encounter Plan of Treatment Scheduled Orders Name Type Priority Associated Diagnoses Orde r Schedule CBC Lab Routine Normocytic anemia Expected: 07/20/2024, Expires: documented as of this encounter Visit Diagnoses Diagnosis Normocytic anemia- Primary Unspecified anemia documented in this encounter Additional Health Concerns Assessment Noted Time PHQ-9 Depression Total Score: 0 10/30/19 23 10:59 AM EDT documented as of this encounter Care Teams Obiee Lead Developer Relationship Specialty Start Date End Date Mai Mcclain MD [address] [place] [address] PCP - General Family Medicine 02/09/22 documented as of this encounter
== END 2024-07-21 08:39 | disposition home or self-care (01) ==
LOC: HO.XRAY 08:38
PROVIDERS: PCP Family Medicine; Visit Provider Internal Medicine
DX: R10.32 Left lower quadrant pain (principal)
CPT/HCPCS: 74018

== ENCOUNTER → 2024-07-21 08:41 | Outpatient (BNV) | payer MEDICAID, SELFPAY | PROVIDERS: PCP Family Medicine; Visit Provider Radiology Diagnostic Radiology | DX: R10.32 Left lower quadrant pain (principal) | CPT/HCPCS: 74018 ==

== ENCOUNTER 2024-08-05 08:19 | Outpatient (AMB) | payer MEDICAID, SELFPAY ==
[2024-08-05 08:24] VITALS: BP 96/50; PULSE 64; BMI 25.6
--- NOTE | 2024-08-05 08:24 | MHC.OFFVIS ---
Vital Signs 08/05/24 08:24 Height 5 ft Weight 131 lb BMI 25.6 BP 96/50 L Blood Pressure Location Lt brachial Position Sitting Pulse 64 Intake Visit Reasons: leg nodules, non vascular Intake Note: Patient referred by Dr. Hernandez for mass on Lt lower leg. Present for ? Patient c/o: left leg mass pain and swelling x 3 years Orientation And Mobility Instructor Required: No Accompanied by: Self / Same As Patient Allergies oxycodone [From Percocet] Allergy (Mild, Verified 08/05/24 08:23) Stomach Upset bee pollen [bee stings] Adverse Reaction (Verified 08/05/24 08:23) Shortness of Breath HPI Comments Details: Patient presents with swelling/fullness involving her left lower extremity in the upper and lower areas. She has 1-1/2 years out roughly from varicose vein procedure. Patient states that she has fullness in the 2 areas with varicose veins were excised and they swell and then received. She had a Doppler ultrasound of the left lower extremity was demonstrated no obvious soft tissue masses. Patient occasionally wears her compressive stockings but says they are uncomfortable. No issues with the contralateral right leg. Chart was reviewed and patient evaluate [facility] Medical History Subcutaneous nodule Sjogren's disease Fibromyalgia Surgical History H/O tubal ligation Hx of cosmetic surgery Hx of section Family History Other Breast cancer Social History Alcohol intake: current Alcohol intake frequency: holidays/special occasions only Patient Tobacco Use Status: Never used Tobacco Gender identity: Female Female Reproductive History Menstrual Age of Menarche: 14 Physical Exam Vital Signs: Last Vital Signs Pulse 64 08/05/24 08:24 BP 96/50 L 08/05/24 08:24 BMI result Body Mass Index 25.6 Extrem Other: Patient was examined both supine and standing. Patient was scars in the prox anterolateral and distal anterior compartment of the leg. Well healed. She has areas of fullness/swelling and these 2 areas but no palpable masses or discrete lesions demonstrated. Assessment & Plan Assessment & Plan (1) Varicose veins of left lower extremity with inflammation: Comment: 06/21/2023 - left leg microphlebectomy Code(s): I83.12 - Varicose veins of left lower extremity with inflammation Category: Surgical Plan Ultrasound followed by exam demonstrate no obvious masses of the affected areas. No acute surgical intervention required at this time. Most probably related to her left lower extremity varicosities. Patient was encouraged to avoid prolonged standing and wear compressive stockings when possible. She will follow up with me p.r.n.. Should her symptoms progress or worsen, she has been recommended to follow up with the vascular surgeon. All questions answered Coding Level of Care Code New Pt Level 4 (71412) Diagnoses Varicose veins of left lower extremity with inflammation I83.12
--- OUTSIDE RECORDS SUMMARY | 2024-08-05 08:47 | XMS_ITS | Encounter Summary ---
Author Organization [employer] Address 75 [facility] 7t [place] [address] Care Team Providers Care Casting And Curing Operator Name Role Phone Mai Mcclain MD Primary Care Provider [phone] Encounter Details Date Type Department Care Team ([facility] st Contact Info) Description 07/20/2024 1:15 PM EST Office Visit [facility] MED & PEDS 505 [place], [place] [phone] Gregor Mack MD 505 [place], [place] [phone] Left lower quadrant abdominal pain (Primary Dx); [...] Pt. Wants to be seen and declines [facility] walk in. History confirmed. No [...] Procedure Name Priority Date/Time Associated Diagnosis Comments XR KUB AND UPRIGHT 2 VIEWS Routine 07/21/2024 8:41 AM EST Left lower quadrant abdominal pain CBC WITH AUTO DIFFERENTIAL Routine 07/20/2024 2:11 PM EST Left lower quadrant abdominal pain SED RATE BY MODIFIED WESTERGREN Routine 07/20/2024 2:11 PM EST Left lower quadrant abdominal pain C-REACTIVE PROTEIN Routine 07/20/2024 2: 11 PM EST Left lower quadrant abdominal pain documented in this encounter Results * XR KUB and Upright 2 Views (07/21/2024 8:41 AM EST) Anatomical Region Laterality Modality Radiographic Garima ging 07/21/2024 8:41 AM EST Narrative 07/21/2024 2:08 PM EST ? [facility] ?[address] ?[place] [address] ?XRay Report ? Signed ? Patient: Alexis,Beatriz ?MR#: [id number] ?? 7 ? : 1985 ?Acct:[id number] ? Age/Sex: 38 / F ?ADM Date: 03/04/25 ? Loc: HO.XRAY ? Attending Dr: Gregor Mack MD ? Ordering Physician: Gregor Mack MD ?? Date of Service: 07/21/24 ?? Procedure(s): XR KUB ?? Accession Number(s): [id number] ? cc: Gregor Mack MD; Mai Mcclain MD ? EXAMINATION: ?? XR ABDOMEN KUB ? CLINICAL INDICATION: ?? left lower quadrant pain ? COMPARISON: ?? None available. ? TECHNIQUE: ?? AP view of the abdomen. ? FINDINGS: ?? There is large amount of stool seen in colon without significant ?? distention. No radiopaque renal calculi. No organomegaly. Scattered ?? phleboliths seen in the pelvis. No gross bony abnormality. ? XR/XR KUB ?? IMPRESSION: ?? Moderate constipation. ? Electronically signed by: ??Massimo Tobar MD ??07/21/2024 02:04 PM EST RP ? Dictated By: ?Massimo Tobar MD ? Signed By: ?<Electronically signed by Massimo Tobar MD in OV> ?07/21/24 1404 ? DD/ 0841 ? TD/TT: 07/21/2458 ? Mental Tester: MSM ? Procedure Note Cortney Cam - 07/21/2024 [place] [address] XRay Report Signed Patient: Michael Espinoza#: [id number] 7 : 1985Acct:[id number] Age/Sex: 38 / FADM Date: 07/21/24 Loc: [facility] Attending Dr: Gregor Mack MD Ordering Physician: Gregor Mack MD Date of Service: 07/21/24 Procedure(s): XR KUB Accession Number(s): [id number] cc: Gregor Mack MD; Mai Mcclain MD EXAMINATION: XR ABDOMEN KUB CLINICAL INDICATION: left lower quadrant pain COMPARISON: None available. TECHNIQUE: AP view of the abdomen. FINDINGS: There is large amount of stool seen in colon without significant distention. No radiopaque renal calculi. No organomegaly. Scattered phleboliths seen in the pelvis. No gross bony abnormality. XR/XR KUB IMPRESSION: Moderate constipation. Electronically signed by: Massimo Tobar MD 07/21/2024 02:04 PM EST Dictated By: Massimo Tobar MD Signed By: <Electronically signed by Massimo Tobar MD in OV> 07/21/24 1404 DD/ 0841 TD/TT: 07/21/24 0858 Mental Tester: [facility] us Gregor Mack MD IMG XR PROCEDURES Final Res ult * Sed Rate by Modified Soledadren (07/20/2024 2:11 PM EST) [facility] Erythrocyte Sedimentation Rate 9 0 - 20 MM/HR [facility] Comment:Patients with polycy themia and many hemoglobin abnormalitiesmay have depressed sed rates whereas patients with anemiamay have elevated sed rates. Blood Venous blood specimen / Unknown 07/20/2024 2:11 PM EST 07/20/2024 5:45 PM EST us Gregor Mack MD LAB BLOOD ORDERABLES Final Result Performing Organization Address [facility]/ZIP Co de Phone Number [facility] [address] [place] [phone] * C-reactive Protein (07/20/2024 2:11 PM EST) [facility] C Reactive Protein 0.24 < or = 0.50 mg/dL [facility] Blood Venous blood specimen / Unknown 07/20/2024 2:11 PM EST 07/20/2024 5:45 PM EST us Gregor Mack MD LAB BLOOD ORDERABLES Final Result Performing Organization Address [facility] Co de Phone Number [facility] [address] [place] [phone] * (ABNORMAL) CBC auto differential (07/20/2024 2:11 PM EST) White Blood Count 7.5 4.8 - 10.8 X10*3/uL [facility] Red Blood Count 4.28 4.20 - 5.50 X10*6/uL [facility] Hemoglobin 11.0(L) 12.0 - 16.0 g/dl [facility] Hematocrit 34.6(L) 37.0 - 47.0 % [facility] Mean Corpuscular Volume 80.8 80.0 - 98.0 fL [facility] Mean Corpuscular Hemoglobin 25.7(L) 27.0 - 33.0 pg [facility] Mean Corpuscular HGB Conc 31.8 31.0 - 35.0 g/dl [facility] Red Cell Distribution Width 15.9 11.0 - 16.0 % [facility] Platelet Count 310 160 - 400 X10*3/uL [facility] Mean Platelet Volume 11.5 9.4 - 12.3 fL [facility] Neutrophils Percent Auto 64.9 45 - 73 % [facility] Imm Gran Pct Auto 0.3 0.0 - 0.4 % [facility] Lymphocytes Percent Auto 24.0 20 - 40 % [facility] Monocytes Percent Auto 7.2 2 - 11 % [facility] Eosinophils Percent Auto 2.9 0 - 4 % [facility] Basophils Percent Auto 0.7 0 - 2 % [facility] NRBC Pct Auto 0.0 0.0 - 0.2 /100WBC [facility] Neutrophils Absolute Auto 4.9 2.0 - 8.3 x10*3/uL [facility] Imm Gran Abs Auto 0.02 0.00 - 0.03 X10*3/uL [facility] Lymphocytes Absolute Auto 1.8 1.2 - 4.9 X10*3/uL [facility] Monocytes Absolute Auto 0.5 0.1 - 1.2 X10*3/uL [facility] Eosinophils Absolute Auto 0.2 0.0 - 0.4 X10*3/uL [facility] Basophils Absolute Auto 0.1 0.0 - 0.2 X10*3/uL [facility] NRBC Abs Auto 0.000 0.0 - 0.012 X10*3/uL [facility] Blood Venous blood specimen / Unknown 07/20/2024 2:11 PM EST 07/20/2024 5:45 PM EST Gregor Mack MD LAB BLOOD ORDERABLES Final Result [facility] [address] [place] [phone] documented in this encounter Visit Diagnoses Diagnosis Left lower quadrant abdominal pain- Primary Other constipation documented in this encounter Additional Health Concerns Assessment Noted Time PHQ-9 Depression Total Score: 0 10/30/19 23 10:59 AM EDT documented as of this encounter Care Teams Casting And Curing Operator Relationship Specialty Start Date End Date Mai Mcclain MD [address] [place] [phone] PCP - General Family Medicine 02/09/22 documented as of this encounter
--- OUTSIDE RECORDS SUMMARY | 2024-08-05 08:47 | XMS_ITS | Encounter Summary ---
Author Organization [employer] Address [address] [facility] [address] 7t [place] [address] Care Team Providers Care Radial Drill Press Set Up Operator Name Role Phone Mai Mcclain MD Primary Care Provider [phone] Reason for Visit * Reason Onset Date Comments Nurse Triage 07/20/2024 Encounter Details Date Type Department Care Team ([facility] st Contact Info) Description 07/20/2024 Telephone [facility] MEDICINE [address] [place] [address] Mai Mcclain MD [address] [place], [place] [phone] Nurse Triage Social History Tobacco Use Types [...] the past 12 months, has t he [employer], gas, oil or water [employer] threatened to shut off services in your [...] Pt. Wants to be seen and declines [facility] walk in. Protocol Used: Abdominal Pain - Female (Adult) Protocol-Based Disposition: See in Office or Video Visit Today Appt. 115pm. In [facility]. Video visit not offered Positive Triage Questions: [...] acuity questions The caller accepted this outcome. [phone] documented in this encounter Plan of Treatment Not on file documented as of this encounter Visit Diagnoses Not on filedocumented in this encounter Additional Health Concerns Assessment Noted Time PHQ-9 Depression Total Score: 0 10/30/19 10:59 AM EDT documented as of this encounter Care Teams Radial Drill Press Set Up Operator Relationship Specialty Start Date End Date Mai Mcclain MD [address] [place] [address] PCP - General Family Medicine 02/09/22 documented as of this encounter
--- OUTSIDE RECORDS SUMMARY | 2024-08-05 08:47 | XMS_ITS | Encounter Summary ---
Author Organization [employer] Address 75 [facility] 7t [place] [address] Care Team Providers Care Drawer In Name Role Phone Mai Mcclain MD Primary Care Provider [phone] Reason for Visit * Reason Comments Med Change Request Encounter Details Date Type Department Care Team ([facility] st Contact Info) Description 07/21/2024 Refill C [facility] 505 [place], [place] [phone] Gregor Mack MD 505 [place], [place] [phone] Other constipation Social History Tobacco Use Types [...] documented as of this encounter Care Teams Drawer In Relationship Specialty Start Date End Date Mai Mcclain MD [address] [place] [phone] PCP - General Family Medicine 02/09/22 documented as of this encounter
--- OUTSIDE RECORDS SUMMARY | 2024-08-05 08:47 | XMS_ITS | Encounter Summary ---
Author Organization [employer] Address [address] [facility] [address] 7[address] [place] [address] Care Team Providers Care Independent Sales Representative Name Role Phone Mai Mcclain MD Primary Care Provider [phone] Encounter Details Date Type Department Care Team [...] documented as of this encounter Care Teams Independent Sales Representative Relationship Specialty Start Date End Date Mai Mcclain MD [address] [place] [address] PCP - General Family Medicine 02/09/22 documented as of this encounter
--- OUTSIDE RECORDS SUMMARY | 2024-08-05 08:48 | XMS_ITS | Encounter Summary ---
Author Organization [employer] Address [address] [facility] 7t [place] [address] Care Team Providers Care Mothercraft Nurse Name Role Phone Mai Mcclain MD Primary Care Provider [phone] Reason for Visit * Reason Comments Med Refill Encounter Details Date Type Department Care Team (Late st Contact Info) Description 02/21/2024 Refill [facility] [address] [place] [address] Destiny Vu MD [address] [place] [address] Social History Tobacco Use Types Packs/Day Years [...] documented as of this encounter Care Teams Mothercraft Nurse Relationship Specialty Start Date End Date Mai Mcclain MD [address] [place] [address] PCP - General Family Medicine 02/09/22 documented as of this encounter
--- OUTSIDE RECORDS SUMMARY | 2024-08-05 08:48 | XMS_ITS | Encounter Summary ---
Author Organization [employer] Address 75 [facility] 7t [place] [address] Care Team Providers Care Private Client Advisor Name Role Phone Mai Mcclain MD Primary Care Provider [phone] Reason for Visit * Reason Comments Med Refill Encounter Details Date Type Department Care Team ([facility] st Contact Info) Description 11/08/2022 Refill [facility] MED & PEDS 505 [place], [place] [phone] Mai Mcclain MD 505 [place], [place] [phone] Social History Tobacco Use Types Packs/Day Years [...] documented as of this encounter Care Teams Private Client Advisor Relationship Specialty Start Date End Date Mai Mcclain MD [address] [place] [address] PCP - General Family Medicine 02/09/22 documented as of this encounter
--- OUTSIDE RECORDS SUMMARY | 2024-08-05 08:48 | XMS_ITS | Encounter Summary ---
Author Organization [employer] Address 75 [facility] 7t [place] [address] Care Team Providers Care Structural Analysis Engineer Name Role Phone Mai Mcclain MD Primary Care Provider [phone] Encounter Details Date Type Department Care Team (Late st Contact Info) Description 07/20/2024 Orders Only [facility] MEDICINE [address] [place] [address] Gregor Mack MD [address] [place], [place] [phone] Normocytic anemia (Primary Dx) Social History Tobacco [...] documented as of this encounter Care Teams Structural Analysis Engineer Relationship Specialty Start Date End Date Mai Mcclain MD [address] [place] [address] PCP - General Family Medicine 02/09/22 documented as of this encounter
--- OUTSIDE RECORDS SUMMARY | 2024-08-05 08:48 | XMS_ITS | Encounter Summary ---
Author Organization [employer] Address [address] [facility] [address] 7[address] [place] [address] Care Team Providers Care Webbing Inspector Name Role Phone Mai Mcclain MD Primary Care Provider [phone] Encounter Details Date Type Department Care Team (Late st Contact Info) Description 04/17/2023 Abstract [facility] MEDICINE 230 [place], [place] [phone] Sarah Chung Social History Tobacco Use Types [...] documented as of this encounter Care Teams Webbing Inspector Relationship Specialty Start Date End Date aMi Mcclain MD [address] [place] [address] PCP - General Family Medicine 02/09/22 documented as of this encounter
--- OUTSIDE RECORDS SUMMARY | 2024-08-05 08:48 | XMS_ITS | Clinical Summary ---
Author Organization [employer] Address [address] [facility] [address] [place] [address] Care Team Providers Care Black And White Printer Operator Name Role Phone Mia Mcclain MD Primary Care Provider [phone] Allergies Active Allergy Reactions Criticality Noted Date Comments Bee Venom Anaphylaxis High 01/02/2023 Duloxetine 05/29/2022 Oxycodone-Acetaminophen 05/29/2022 Other reaction(s): vomiting Medications * This document contains information received from the source organization and may not represent a complete record from that organization. EPINEPHrine (Epipen) 0.3 MG/0.3ML injection syringe 0.3 MG (0.3 ML) INTRAMUSCULARLY EVERY 4 HOURS NEEDED FOR ANAPHYLAXIS 023 Active ibuprofen 600 MG tablet Take 1 tablet (600 mg) by mouth 3 times daily. 90 tablet 1 023 Active naproxen (Naprosyn) 500 MG tablet Take 1 tablet (500 mg) by mouth 2 times daily. 30 tablet 1 024 2024 Active Diclofenac Sodium 1 % gel Apply 2 g topically if needed in the morning, at noon, in the evening, and at bedtime (pain). 150 g 3 024 Active albuterol 108 (90 Base) MCG/ACT inhaler Inhale 2 puffs every 4 (four) hours if needed for wheezing or shortness of breath. 18 g 1 025 2025 Active Spacer/Aero-Hol ding Chambers (OptiChamber Liyah) misc 1 each every 4 (four) hours if needed (asthma). 1 each 025 Active ferrous sulfate (Fe Tabs) 325 (65 Fe) MG EC tabletIndicatio ns:Normocytic anemia Take 1 tablet (325 mg) by mouth with breakfast. Do not crush, chew, or split. 30 tablet 2 025 2025 Active polyethylene glycol, PEG, 3350 (Glycolax) 17 GM/SCOOP powderIndicatio ns:Other constipation DISSOLVE 17 GRAMS IN 8 OZ OF FLUID LIQUID DRINK DAILY DIRECTED 238 g Active polyethylene glycol, PEG, 3350 (Miralax) 17 g packetIndicatio ns:Other constipation Take 17 g by mouth Once per day for 3 days. 3 packet 025 2024 Discontinued Active Problems Problem Noted Date Diagnosed Date Intractable episodic headache 02/24/2024 Assessment & Plan (02/24/2024 11:26 AM EDT): Prescribing Elavil for Sx. Relevant Medication Amitriptyline (Elavil) 25 MG tablet Thrombophlebitis of superfic ial veins of left lower extremity 02/07/2023 Assessment & Plan (02/07/2023 4:34 PM EDT): Treat with eligallito, has f/up with vasc already setup. Reviewed [...] Encounters Date Type Department Care Team Description 07/31/2024 Population Health Risk Score [facility] () Department [address] [place] [phone] Provider, Population Health Generic 07/24/2024 Telephone [facility] [address] [place] [phone] Gregor Mack MD Results 07/21/2024 Refill [facility] [address] [place] [address] Gregor Mack MD Other constipation 07/20/2024 1:15 PM EST Office Visit [facility] [address] [place] [address] Gregor Mack MD Left lower quadrant abdominal pain (Primary Dx); Other constipation 07/20/2024 Orders Only [facility] [address] [place] [phone] Gregor Mack MD Normocytic anemia (Primary Dx) 07/20/2024 Travel 07/20/2024 Telephone [facility] [address] [place] [phone] Mai Mcclain MD Nurse Triage 06/23/2024 9:20 AM EST Office Visit [facility] [address] [place] [phone] Rosas Merlos MD Influenza-like symptoms (Primary Dx); Cough in adult 06/23/2024 Travel 06/19/2024 Telephone [facility] [address] [place] [address] Mai Mcclain MD Nurse Triage 05/15/2024 Telephone [facility] [address] [place] [address] Luana Jones, results 05/11/2024 9:15 AM EST Office Visit [facility] [address] [place] [address] Luana Jones, Routine history and physical examination of adult (Primary Dx); Fibromyalgia; Acute wrist pain, right; BMI 23.0-23.9, adult 05/11/2024 Travel 05/07/2024 Orders Only [facility] External Provider, [facility] from Last 3 Months Immunizations Name Administration [...] AM EST Left lower quadrant abdominal pain SED [...] DUPLEX LE LT Routine 8:35 AM EST HEPATITIS C ANTIBODY Routine 12/23/2023 3:20 PM EDT HIV 1/2 ANTIGEN/ANTIBODY, FOURTH GENERATION W/RFL Routine 12/23/2023 3:20 PM EDT INTRAORAL - COMPLETE SERIES OF RADIOGRAPHIC IMAGES Routine 07/16/2022 8:00 AM EST COMPREHENSIVE ORAL EVALUATION - NEW OR ESTABLISHED PATIENT Routine 07/16/2022 8:00 AM EST HM PAP/HPV Routine 11/15/2020 from Last 3 Months or Most Recently Relevant to Health Maintenance Results * XR KUB and Upright 2 Views (07/21/2024 8:41 AM EST) Anatomical Region Laterality Modality Radiographic Garima ging 07/21/2024 8:41 AM EST Narrative 07/21/2024 2:08 PM EST ? [facility] ?[address] ?[place] [address] ?XRay Report ? Signed ? Patient: Beatriz Espinoza ?MR#: [id number] ?? 7 ? : 1985 ?Acct:[id number] ? Age/Sex: 38 / F ?ADM Date: 07/21/24 ? Loc: HO.XRAY ? Attending Dr: Gregor Mack MD ? Ordering Physician: Gregor Mack MD ?? Date of Service: 07/21/24 ?? Procedure(s): XR KUB ?? Accession Number(s): [id number] ? cc: Gregor Mack MD; Mai Mcclain [...] Moderate constipation. ? Electronically signed by: ??Massimo Ekaterina MD ??07/21/2024 02:04 PM EST RP ? Dictated By: ?Ekaterina,Massimo S MD ? Signed By: ?<Electronically signed by Massimo S Ekaterina, MD in OV> ?07/21/24 1404 ? DD/ 0841 ? TD/TT: 07/21/24 0858 ? Fitness Management Director: VARGAS ? Procedure Note Doncandaceter, Image - 07/21/[address] [address] XRay Report Signed Patient: Michael Espinoza#: [id number] 7 : 1985Acct:[id number] Age/Sex: 38 / FADM Date: 07/21/24 Loc: HO.XRAY Attending Dr: Gregor Mack MD Ordering Physician: Gregor Mack MD Date of Service: 07/21/24 Procedure(s): XR KUB Accession Number(s): [id number] cc: Gregor Mack MD; Mai Mcclain MD [...] in OV> 07/21/24 1404 DD/ 0841 TD/TT: 07/21/24857 Fitness Management Director: VARGAS us Gregor Mack MD IMG XR PROCEDURES Final Res ult * (ABNORMAL) CBC auto differential (07/20/2024 2:11 PM EST) White Blood Count 7.5 4.8 - 10.8 X10*3/uL [facility] Red Blood Count 4.28 4.20 - 5.50 X10*6/uL [facility] Hemoglobin 11.0(L) 12.0 - 16.0 g/dl [facility] Hematocrit 34.6(L) 37.0 - 47.0 % [facility] Mean Corpuscular Volume 80.8 80.0 - 98.0 fL [facility] Mean Corpuscular Hemoglobin 25.7(L) 27.0 - 33.0 pg [facility] Mean Corpuscular HGB Conc 31.8 31.0 - 35.0 g/dl [facility] Red Cell Distribution Width 15.9 11.0 - 16.0 % [facility] Platelet Count 310 160 - 400 X10*3/uL [facility] Mean Platelet Volume 11.5 9.4 - 12.3 fL [facility] Neutrophils Percent Auto 64.9 45 - 73 % [facility] Imm Gran Pct Auto 0.3 0.0 - 0.4 % [facility] Lymphocytes Percent Auto 24.0 20 - 40 % [facility] Monocytes Percent Auto 7.2 2 - 11 % [facility] Eosinophils Percent Auto 2.9 0 - 4 % [facility] Basophils Percent Auto 0.7 0 - 2 % [facility] NRBC Pct Auto 0.0 0.0 - 0.2 /100WBC [facility] Neutrophils Absolute Auto 4.9 2.0 - 8.3 x10*3/uL [facility] Imm Gran Abs Auto 0.02 0.00 - 0.03 X10*3/uL [facility] Lymphocytes Absolute Auto 1.8 1.2 - 4.9 X10*3/uL [facility] Monocytes Absolute Auto 0.5 0.1 - 1.2 X10*3/uL [facility] Eosinophils Absolute Auto 0.2 0.0 - 0.4 X10*3/uL [facility] Basophils Absolute Auto 0.1 0.0 - 0.2 X10*3/uL [facility] NRBC Abs Auto 0.000 0.0 - 0.012 X10*3/uL [facility] Blood Venous blood specimen / Unknown 07/20/2024 2:11 PM EST 07/20/2024 5:45 PM EST us Gregor Mack MD LAB BLOOD ORDERABLES Final Result Performing Organization Address City/[facility]/ZIP Co de Phone Number [facility] [address] [place] [phone] * Sed Rate by Modified Anilergren (07/20/2024 2:11 PM EST) Pathologist [facility] Erythrocyte Sedimentation Rate 9 0 - 20 MM/HR [facility] Comment:Patients with polycy themia and many hemoglobin abnormalitiesmay have depressed sed rates whereas patients with anemiamay have elevated sed rates. Blood Venous blood specimen / Unknown 07/20/2024 2:11 PM EST 07/20/2024 5:45 PM EST us Gergor Mack MD LAB BLOOD ORDERABLES Final Result Performing Organization Address [facility] Co de Phone Number [facility] [address] [place] [phone] * C-reactive Protein (07/20/2024 2:11 PM EST) Pathologist [facility] C Reactive Protein 0.24 < or = 0.50 mg/dL [facility] Blood Venous blood specimen / Unknown 07/20/2024 2:11 PM EST 07/20/2024 5:45 PM EST us Gregor Mack MD LAB BLOOD ORDERABLES Final Result Performing Organization Address City/[facility]/ZIP Co de Phone Number [facility] [address] [place] [address] [phone] * POCT Rapid Influenza A TALLEY ID NOW (06/23/2024 10:13 AM EST) Influenza A Negative Negative, Indeterminate [facility] QC Media Lot # [id number] [facility] Lot# Expiration Date [facility] Swab 06/23/2024 10:1 3 AM EST us Rosas Merlos MD POINT OF CARE TEST ENTER/EDIT OR DERABLES Final Result Performing Organization Address [facility] Co de Phone Number [facility] [address] [place] [phone] * POCT Rapid Influenza B TALLEY ID NOW (06/23/2024 10:12 AM EST) Influenza B Negative Negative, Indeterminate [facility] QC Media Lot # [id number] [facility] Lot# Expiration Date [facility] Swab 06/23/2024 10:1 2 AM EST us Rosas Merlos MD POINT OF CARE TEST ENTER/EDIT OR DERABLES Final Result Performing Organization Address [facility] de Phone Number [facility] [address] [place] [phone] * POCT Rapid Covid-19 BinaxNOW (06/23/2024 10:12 AM EST) Pathologist [facility] Rapid COVID Ag Negative QC Media Lot # [id number] Lot# Expiration Date Swab 06/23/2024 10:1 2 AM EST us Rosas Merlos MD POINT OF CARE TEST ENTER/EDIT OR DERABLES Final Result * (ABNORMAL) Vitamin D, 25-Hydroxy, Total, Immunoassay (05/11/2024 10:13 AM EST) Pathologist [facility] Vitamin D 25-OH Total 29.5(L) >30 ng/mL [facility] Comment:Health Based Referen ce Values*< 20 ng/mL [id number] ng/mL Insufficient> 30 ng/mL Sufficient*Jacky CASTILLO. N [...] DO LAB BLOOD ORDERABLES Final R esult [facility] [address] [place] [phone] * T-SPOT??.TB (05/11/2024 10:13 AM EST) Pathologist [facility] T Spot TB Negative Negative [facility] Comment:A negative test resu lt does [...] as aquantitative test. TS PANEL A 0 [facility] TS PANEL B 0 [facility] Negative Control Passed [facility] Positive Control Passed [facility] Comment:For additional infor soy, please refer tohttp://education.Vendigi/faq/TFL112(This link is being provided for informational/educational purposes only.)THIS TEST WAS PERFORMED AT:[employer]/DEY [id number] [place] [id number] W. MASON,MD,PHD 05/11/2024 10:1 3 AM EST 05/11/2024 11:40 AM EST us Luana Jones DO LAB BLOOD ORDERABLES Final R esult [facility] [address] [place] [phone] * (ABNORMAL) CBC (05/11/2024 10:13 AM EST) White Blood Count 5.9 4.8 - 10.8 X10*3/uL [facility] Red Blood Count 4.26 4.20 - 5.50 X10*6/uL [facility] Hemoglobin 11.5(L) 12.0 - 16.0 g/dl [facility] Hematocrit 36.0(L) 37.0 - 47.0 % [facility] Mean Corpuscular Volume 84.5 80.0 - 98.0 fL [facility] Mean Corpuscular Hemoglobin 27.0 27.0 - 33.0 pg [facility] Mean Corpuscular HGB Conc 31.9 31.0 - 35.0 g/dl [facility] Red Cell Distribution Width 14.4 11.0 - 16.0 % [facility] Platelet Count 296 160 - 400 X10*3/uL [facility] Mean Platelet Volume 10.9 9.4 - 12.3 fL [facility] NRBC Pct Auto 0.0 0.0 - 0.2 /100WBC [facility] NRBC Abs Auto 0.000 0.0 - 0.012 X10*3/uL [facility] Blood Venous blood specimen / Unknown 05/11/2024 10:13 AM EST 05/11/2024 11:37 AM EST us Luana Jones DO LAB BLOOD ORDERABLES Final R esult Performing Organization Address City/[facility]/ZIP Co de Phone Number [facility] [address] [place] [phone] * TSH (05/11/2024 10:13 AM EST) Thyroid Stimulating Hormone 1.14 0.32 - 4.0 uIU/mL [facility] Comment:TSH 3rd Generation ( [facility]) Blood Venous blood specimen / Unknown 05/11/2024 10:13 AM EST 05/11/2024 11:40 AM EST us Luana Jones DO LAB BLOOD ORDERABLES Final R esult Performing Organization Address [facility] Co de Phone Number [facility] [address] [place] [phone] * T4, Free (05/11/2024 10:13 AM EST) Free T4 (Free Thyroxine) 0.95 0.71 - 1.85 ng/dL [facility] Blood Venous blood specimen / Unknown 05/11/2024 10:13 AM EST 05/11/2024 11:40 AM EST Luana Jones DO LAB BLOOD ORDERABLES Final R esult Performing Organization Address City/[facility] Co de Phone Number [facility] [address] [place] [phone] * Hemoglobin A1c (05/11/2024 10:13 AM EST) Hemoglobin A1c 5.1 <6.0 % [facility] Comment:Hemoglobin A1C Refer ence Range Adults: 4.8 - 6.0 % Non diabetic: < 6.0 % Goal: < 7.0 %Additional Action Suggested: > 8.0 %Note: Hemoglobin A1c results are invalid for patients with abnormal amounts of HbF. Blood transfusions may impact the HbA1c concentration in the patient sample. Estimated Average Glucose 100 mg/dL [facility] Comment:eAG = Estimated ave rage glucose which is %A1C expressed asaverage glucose, using the formula of the B8S-YmqbuctPmfenxo Glucose study (ADAG), Diabetes Care, Vol.31,#8,2007 Blood Venous blood specimen / Unknown 05/11/2024 10:13 AM EST 05/11/2024 11:37 AM EST Luana Jones LAB BLOOD ORDERABLES Final R esult Performing Organization Address [facility] de Phone Number [facility] [address] [place] [phone] * Hepatic Function Panel (05/11/2024 10:13 AM EST) Bilirubin, Total 0.3 0.0 - 1.0 mg/dL [facility] Bilirubin, Direct 0.1 0.0 - 0.5 mg/dL [facility] Aspartate Amino Transferase 26 5 - 31 U/L [facility] Alanine Aminotransferase 18 0 - 31 U/L [facility] Total Protein 7.4 6.5 - 8.0 g/dL [facility] Albumin Level 4.0 3.5 - 5.0 g/dL [facility] Alkaline Phosphatase 55 39 - 117 U/L [facility] Blood Venous blood specimen / Unknown 05/11/2024 10:13 AM EST 05/11/2024 11:40 AM EST [facility] BLOOD ORDERABLES Final R esult Performing Organization Address [facility] Co de Phone Number [facility] [address] [place] [phone] * Lipid Panel, Standard (05/11/2024 10:13 AM EST) Triglycerides 109 <150 mg/dL [facility] Comment:Desirable Triglyceri de: less than 150 mg/dLBorderline High Triglyceride 150-199 mg/dLHigh Triglyceride: 200-499 mg/dLVery High Triglyceride: greater than or equal to 5OO mg/dL Cholesterol 163 <200 mg/dL [facility] Comment:Desirable Cholestero l: less than 200 mg/dLBorderline High Cholesterol: 200-239 mg/dLHigh Cholesterol: greater than 239 mg/dL LDL Cholesterol Calculated 89 <100 mg/dL [facility] Comment:Desirable LDL: less than 100 mg/dLNear Optimal/Above Optimal LDL: 110- 129 mg/dLBorderline High LDL: 130-159 mg/dLHigh LDL: 160-189 mg/dLVery High LDL: greater than or equal to 190 mg/dL HDL Cholesterol 53 >40 mg/dL [facility] Comment:Desirable HDL: great er than 40 mg/dL Note: This HDL assay may give artificially low results in patients with liver disease. Blood Venous blood specimen / Unknown 05/11/2024 10:13 AM EST 05/11/2024 11:40 AM EST us Luana Jones DO LAB BLOOD ORDERABLES Final R esult [facility] [address] [place] [phone] * (ABNORMAL) Basic Metabolic Panel (05/11/2024 10:13 AM EST) Sodium 140 135 - 145 mmol/L [facility] Potassium 3.9 3.3 - 5.1 mmol/L [facility] Chloride 108 96 - 108 mmol/L [facility] Carbon Dioxide 28 22 - 29 mmol/L [facility] Anion Gap 8(L) 12 - 20 [facility] Urea Nitrogen (BUN) 17(H) 9 - 16 mg/dL [facility] Creatinine, Serum 0.86 0.5 - 1.4 mg/dL [facility] Estimated Glomerular Filt Rate >60 [facility] Comment:Chronic Kidney Disea se: Estimated GFR < 60 mL/min/1.07m6Swtxdn Kidney Disease: Estimated GFR < 15 mL/min/1.73m2 Glucose 81 60 - 115 mg/dL [facility] Calcium 8.5 8.4 - 10.2 mg/dL [facility] Blood Venous blood specimen / Unknown 05/11/2024 10:13 AM EST 05/11/2024 11:40 AM EST us Luana Jones DO LAB BLOOD ORDERABLES Final R esult [facility] [address] [place] [phone] * US VENOUS DUPLEX LE LT (05/07/2024 8:35 AM EST) Anatomical Region Laterality Modality Abdomen Ultrasound 05/07/2024 8:35 AM EST Narrative 05/07/2024 1:07 PM EST ? [facility] ?[address] ?[place] [address] ? Ultrasound Report ? Signed ? Patient: Alexis,Beatriz ?MR#: [id number] ?? 7 ? : 1985 ?Acct:[id number] ? Age/Sex: 38 / F ?ADM Date: 05/07/24 ? Loc: HO.US ? Attending Dr: Mando Hernandez MD ? Ordering Physician: Mando Hernandez MD ?? Date of Service: 05/07/24 ?? Procedure(s): US venous duplex LE LT ?? Accession Number(s): [id number] ? cc: Mando Hernandez MD; Mai Mcclain [...] PM EST RP ? Dictated By: ?Stuart uV MD ? Signed By: ?<Electronically signed by Stuart Vu MD in OV> ? //24 1304 ? DD/ 0835 ? TD/TT: 05/07/24 0910 ? Fitness Management Director: ? Procedure Note Donotuseinterpreter, Image - 05/07/2024 [place] [address] Ultrasound Report Signed Patient: Michael Espinoza#: [id number] 7 : 1985Acct:[id number] Age/Sex: 38 / FADM Date: 05/07/24 Loc: .US Attending Dr: Mando Hernandez MD Ordering Physician: Mando Hernandez MD Date of Service: 05/07/24 Procedure(s): US venous duplex LE LT Accession Number(s): [id number] cc: Mando Hernandez MD; Mai Mcclain MD [...] Stuart Vu MD 05/07/2024 01:04 PM EST Dictated By: Stuart Vu MD Signed By: <Electronically signed by Stuart Vu MD in OV> 05/07/24 1304 DD/ 0835 TD/TT: 05/07/24 0910 Fitness Management Director: us [facility] External Provider IMG US PROCEDURES Final Result * Hepatitis C Ab (12/23/2023 3:20 PM EDT) Hepatitis C Antibody Nonreactive Nonreactive [facility] Comment:Antibodies to HCV no t detected; does not exclude early acuteHCV infection. 12/23/2023 3:20 PM EDT 12/23/2023 5:36 PM EDT Generic External Data Provider LAB BLOOD ORDERAB LES Final Result [facility] [address] [place] [phone] * HIV-1/2 Antigen and Antibodies, Fourth [...] below the limit ofdetection of this assay.The [employer] HIV Ag/Ab Combo assay result andsupplemental assay results should be interpreted inconjunction with the patient's clinical presentation,history and other laboratory results. If the results areinconsistent with clinical evidence, additional testing issuggested to confirm the result. 12/23/2023 3:20 PM EDT 12/23/2023 5:36 PM EDT us Generic External Data Provider LAB BLOOD ORDERAB LES Final Result [facility] [address] [place] [phone] * Hm Pap Smear (11/15/2020) Pap Negative for intraephithelial lesion or malignancy Negative for intraephithelial lesion or malignancy, Other HPV Undetected Undetected, Indeterminate, Quantitative, Not Detected us Historical Provider HEALTH MAINTENANCE Final Result from Last 3 Months or Most Recently Relevant to Health Maintenance [facility] STAND ADULT Care Teams Black And White Printer Operator Relationship Specialty Start Date End Date Mai Mcclain MD [address] [place] [address] [place] [address] PCP - General Family Medicine 02/09/22
--- OUTSIDE RECORDS SUMMARY | 2024-08-05 08:48 | XMS_ITS | Encounter Summary ---
Author Organization [employer] Address [address] [facility] 7t [place] [address] Care Team Providers Care Photocopying Equipment Mechanic Name Role Phone Mai Mcclain MD Primary Care Provider [phone] Reason for Visit * Reason Onset Date Comments Results 07/24/2024 Encounter Details Date Type Department Care Team ([facility] st Contact Info) Description 07/24/2024 Telephone [facility] [address] [place] [address] Gregor Mack MD [address] [place] [address] Results Social History Tobacco Use Types Packs/Day Years [...] encounter Miscellaneous Notes * Telephone Encounter - Wing Edgard RN - 07/24/2024 1:58 PM EST Tc from pt, relayed message of results, medication prescribed , and call back in a week in no improvement with medication. Pt verbalized understanding and agreement with plan. * Telephone Encounter - Wing Edgard RN - 07/24/2024 1:30 PM EST Tc to pt to relay KUB US results and plan. Unable to reach pt, left message to call back. ----- Message from Gregor Mack MD sent at 07/24/2024 11:38 AM EST ----- Moderate stool burden on KUB. Started on polyethylene glycol. Pt is to call the office if no improvement in the next week or so. ----- Message ----- From: Tawnya Ris Results In Sent: 07/21/2024 2:08 PM EST To: Gregor Mack MD documented in this encounter Plan of Treatment Not on file documented as of this encounter Visit Diagnoses Not on filedocumented in this encounter Additional Health Concerns Assessment Noted Time PHQ-9 Depression Total Score: 0 10/30/19 23 10:59 AM EDT documented as of this encounter Care Teams Photocopying Equipment Mechanic Relationship Specialty Start Date End Date Mai Mcclain MD [address] [place] [address] PCP - General Family Medicine 02/09/22 documented as of this encounter
--- OUTSIDE RECORDS SUMMARY | 2024-08-05 08:49 | XMS_ITS | Encounter Summary ---
Author Organization [employer] Address [address] [facility] 7t [place] [address] Care Team Providers Care Tilesetter Name Role Phone Mai Mcclain MD Primary Care Provider [phone] Encounter Details Date Type Department Care Team ([facility] st Contact Info) Description 07/31/2024 Population Health Risk Score [facility] ([facility] Department [address] [facility] [address] [place] [id number] Provider, Population Health Generic Social History Tobacco Use Types Packs/Day Years [...] documented as of this encounter Care Teams Tilesetter Relationship Specialty Start Date End Date Mai Mcclain MD [address] [place] [address] PCP - General Family Medicine 02/09/22 documented as of this encounter
== END 2024-08-05 08:53 | disposition home or self-care (01) ==
LOC: HO.HGS 08:19
PROVIDERS: PCP Family Medicine; Referring Provider Surgery Vascular Surgery; Visit Provider Surgery
DX: I83.12 Varicose veins of left lower extremity with inflammation (principal)
CPT/HCPCS: 99204

== ENCOUNTER → 2024-08-05 08:19 | Outpatient (BNVA) | payer MEDICAID, SELFPAY | PROVIDERS: PCP Family Medicine; Referring Provider Surgery Vascular Surgery; Visit Provider Surgery | DX: I83.12 Varicose veins of left lower extremity with inflammation (principal) | CPT/HCPCS: 99202 ==

== ENCOUNTER 2024-08-11 09:25 | Outpatient (REF) | payer MEDICAID, SELFPAY ==
[2024-08-12 06:04] LABS: CT PCR NOT DETECTED (Not Detect.); NG PCR NOT DETECTED (Not Detect.)
[2024-08-12 13:05] LABS: Bacterial Vaginosis PCR POSITIVE (Negative); Candida Group PCR DETECTED (Not Detect); Candida glab krusei PCR NOT DETECTED (Not Detect); Trichomonas vaginalis PCR NOT DETECTED (Not Detect)
== END 2024-08-11 09:26 | disposition home or self-care (01) ==
LOC: HO.LAB 09:25
PROVIDERS: PCP Family Medicine; Visit Provider Advanced Practice Midwife
DX: Z01.419 Encounter for gynecological examination (general) (routine) without abnormal findings (principal); N89.8 Other specified noninflammatory disorders of vagina; Z20.2 Contact with and (suspected) exposure to infections with a predominantly sexual mode of transmission
CPT/HCPCS: 81515; 87491; 87591; 99395; 99459

== ENCOUNTER 2024-08-11 09:25 | Outpatient (AMB) | payer MEDICAID, SELFPAY ==
[2024-08-11 09:30] VITALS: BP 118/70; BMI 26.0
--- NOTE | 2024-08-11 09:30 | MHC.OFFVIS ---
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 Financial Business Analyst Required: No Financial Business Analyst Services: Financial Business Analyst Present Information Interpreted: clinical only Clean Up Person: Clean Up Person Present Allergies oxycodone [From Percocet] Allergy (Mild, Verified 08/11/24 09:30) Stomach Upset bee pollen [bee stings] Adverse Reaction (Verified 08/11/24 09:30) Shortness of Breath Medication List - Last Reconciled 08/11/24 by Marianna Olguin CNM No Known Home Meds Is last menstrual period known: Yes Last menstrual period: 07/24/24 HPI HPI 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 She had broken up with her partner for quite a while and was having no issues at all after coming for bacterial vaginosis concerns last September, and since she re united with him June she has noticed in unpleasant odor every time after she has sex. She isn't complaining of vaginal dryness as much as before or any other issues. She does have the Sjogren's and we did discuss how that may possibly play a role as well she will be seeing her Sjogren's specialists soon discussed how it possibly could affecting vaginal secretions as well. [facility] Medical History Subcutaneous nodule Sjogren's disease Fibromyalgia Surgical History H/O tubal ligation Hx of cosmetic surgery Hx of section Family History Other Breast cancer Social History Alcohol intake: current Alcohol intake frequency: holidays/special occasions only Patient Tobacco Use Status: Never used Tobacco Gender identity: Female Female Reproductive History Menstrual Age of Menarche: 14 Duration of menses: 3-5 days Date of last menstrual period: 07/24/24 control method: permanent sterilization Total pregnancies: 4 Full term: 4 Date of last pap smear: 08/08/23 (negative,2020 WNL) Physical Exam Vital Signs: Last Vital Signs BP 118/70 08/11/24 09:30 BMI result Body Mass Index 26.0 Const General: healthy appearing, comfortable, no acute distress, well developed and alert Nutritional Appearance: average body habitus Orientation/consciousness: patient oriented x3 Limitations: no limitations HEENT Head: Yes normocephalic Neck Neck: Yes normal visual inspection Chest Chest palpation & inspection: normal inspection of the chest Breast/axilla inspection: normal inspection of the breasts and normal inspection of the axillae Breast/axilla palpation: normal palpation of the breasts and normal palpation of the axillae Resp Effort & Inspection: normal respiratory effort GI Inspection: Yes normal to inspection, No Abdominal wall edema and No distended Palpation (GI): Soft to palpation and nontender Other: Has low-transverse scar as well as vertical scar last emergency for abruption. Vagina is pink smooth moist very scant healthy-appearing clear mucus that appears consistent with recent ovulation cervix is nulliparous smooth tightly closed with pinpoint os patient believes she ovulated 2 days ago. Uterus and cervix small mobile nontender adnexa nontender good muscle tone. General: Yes bladder normal to palpation External Female Exam: normal external appearance and normal appearance of the urethra Speculum Exam - Vagina: normal appearance of the vagina, normal palpation and normal vaginal discharge Speculum Exam - Cervix: normal appearance of the cervix, normal palpation and nontender Bimanual exam- vagina & uterus: normal bimanual exam, normal palpation, uterine size normal, bladder normal to palpation, consistency normal, normal palpation, uterine mobility normal, uterine shape normal, No Cervical tenderness present, non-tender and no cervical motion tenderness Bimanual Exam- Adnexa, other: normal adnexae, no masses, normal and No adnexal tenderness Neuro General: patient oriented x3 Results Reviewed Results Reviewed: Name: Beatriz Espinoza Age/Sex: 37/F Attending: Marianna Olguin CNM : 1985 Submitted by: Marianna Olguin CNM Copies to: MR #: [id number] Status: DEP REF Collected: 08/06/23 Location: [facility] Received: 08/08/23 Interpretation Satisfactory for evaluation. No endocervical cells seen. Negative for intraepithelial lesion or malignancy. HPV mRNA E6/E7: NOT DETECTED This assay detects E6/E7 viral messenger RNA (mRNA) from 14 high-risk HPV types (16, 18, 31, 33, 35, 39, 45, 51, 52, 56, 58, 59, 66, 68) HPV testing performed by [facility], [place], [place]. See reference laboratory portion of the EMR for entire report. Clinical Information LMP: 07/19/23 Previous PAP test: 11/16/20, WNL Material Received ThinPrep-Cervical Electronically Signed By: JYOTHI Chacon (ASCP) 08/19/23 1316 The Pap Test is a screening procedure with the inherent possibility of both false negative and false positive results. Results should be interpreted in the context of historic and current clinical findings. Reliability of the Pap Test is enhanced by performing the test on a regular repetitive basis. Patient: Beatriz Espinoza Age/Sex: 37/F MR#: [id number] Page 1 of 1 Assessment & Plan Assessment & Plan (1) Hx of section: Comment: History of 4 C sections had some chronic abruption towards end of last - emergency at [facility]... Code(s): Z98.891 - History of uterine scar from previous surgery Category: Surgical (2) Well woman exam with routine gynecological exam: Code(s): Z01.419 - Encounter for gynecological examination (general) (routine) without abnormal findings Category: Medical (3) Cervical cancer screening: Comment: 11/15/20 pap & hpv neg.; 08/06/2023 Pap is negative with negative HPV; Code(s): Z12.4 - Encounter for screening for malignant neoplasm of cervix Category: Medical (4) Breast cancer screening: Code(s): Z12.39 - Encounter for other screening for malignant neoplasm of breast Category: Medical (5) Vaginal dryness: Comment: Patient aware it is consistently luteal phase and possibly aggravated by her Sjogren's, discussed water-based lubricants.- 08/06/23-not a problem this year. 08/11/24-this yr, c/o vag odor P sex.... Code(s): N89.8 - Other specified noninflammatory disorders of vagina Category: Medical Plan -----Discussed in this visit the following: healthy balanced diet, regular and consistent exercise, getting recommended health screens, doing the best she can for her particular health concerns, kegel exercises, pap smear screening and followup recommendations, mammography screening and SBE, normal changes in cycles in her life stage--- . Discussed the issues involved with bacterial vaginosis and it is limited treatments and all of its related factors. She had tried boric acid vaginal treatment and that did not help her at all and gave off a worse odor that made her even nauseous. Discussed again that is possible connection for her to the Sjogren's right now it does not appear dry and it does not appear abnormal we will await test results but reviewed the bacterial vaginosis testing is in perfect and often it shows up when it is not really be issue but are testing abilities are somewhat limited in scope I do not observe any unhealthy tissue or abnormal discharge today. We will await testing results.. Her oldest daughter just graduated from maybe [employer] and we will be stationed in [place] and she is very proud of her. It was very hard for her when she left for [employer] . Her youngest who has delivered by emergency once we transferred her from [place] to [facility] this now 8 years old she had some level of chronic abruption of the end which was the reason for our transferring her. It was very scary and traumatic and we discussed the story again at length as I was there. 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 Mammograms will start when she is age 41 I recommend that she have a conversation with her specialist for the Sjogren's disease just to have a discussion about how it effects other body parts of similar make up such as vagina is and other tissues she is already aware of how it effects her in other ways that is started with her eyes being dry and her mouth though that is not so bad right now she also experiences other issues with joints. RTC 1 year. Orders: Orders CT NG by PCR Today N89.8 - Other specified noninflammatory disorders of vagina, Z20.2 - Contact with and (suspected) exposure to infections with a predominantly sexual mode of transmission Bacterial Vaginosis Panel Today N89.8 - Other specified noninflammatory disorders of vagina Coding Level of Care Code Est Pt Prev Care 18-39y(95573) Diagnoses Hx of section Z98.891 Well woman exam with routine gynecological exam Z01.419 Cervical cancer screening Z12.4 Breast cancer screening Z12.39 Vaginal dryness N89.8
== END 2024-08-11 10:14 | disposition home or self-care (01) ==
LOC: HO.HWSM 09:26
PROVIDERS: PCP Family Medicine; Visit Provider Advanced Practice Midwife
DX: Z01.419 Encounter for gynecological examination (general) (routine) without abnormal findings (principal); N89.8 Other specified noninflammatory disorders of vagina
CPT/HCPCS: 99395; 99459

== ENCOUNTER 2024-08-18 12:48 | Outpatient (AMB) | payer MEDICAID, SELFPAY ==
--- NOTE | 2024-08-18 13:07 | A.OFFVIS_ITS ---
Intake Visit Reasons: LLE varicosities/burning sensation Intake Note: Patient presents for burning in left leg. Went to general surgery and was told to return to vascular. Patient states she gets brusing, swelling and pain. Accompanied by: Son Allergies oxycodone [From Percocet] Allergy (Mild, Verified 08/18/24 13:09) Stomach Upset bee pollen [bee stings] Adverse Reaction (Verified 08/18/24 13:09) Shortness of Breath HPI HPI LLE varicosities/burning sensation: Details: The patient is a 38-year-old female presenting with paroxysm of the left lower extremity. She experiences severe, burning pain in her left lower extremity that worsens with activity and requires her to rest frequently. The condition is accompanied by swelling, particularly at night. She has previously undergone vein removal in the left leg, but her symptoms persist and have been worsening. The patient reports periodic flare-ups, exacerbated by physical activity, possibly linked to her fibromyalgia and Sjogren?s syndrome. Currently, she uses ibuprofen as needed to manage pain. [facility] Medical History Subcutaneous nodule Sjogren's disease Fibromyalgia Surgical History H/O tubal ligation Hx of cosmetic surgery Hx of section Family History Other Breast cancer Social History Alcohol intake: current Alcohol intake frequency: holidays/special occasions only Patient Tobacco Use Status: Never used Tobacco Gender identity: Female Female Reproductive History Menstrual Age of Menarche: 14 Review of Systems Const All systems reviewed & are unremarkable except as noted in HPI and below Reports no additional complaints ENT Reports Normal hearing present Card Denies chest pain, Denies chest pain at rest, Denies chest pain with activity and Denies pedal edema Resp Denies cough GI Denies abdominal pain Musc Denies abnormal gait, Denies muscle cramps and Denies radiating pain into limb Skin/Breast Denies skin ulcer and Denies wounds Neuro Reports Normal hearing present and Denies abnormal gait Psych Reports no additional complaints Physical Exam Const General: cooperative, healthy appearing and comfortable Orientation/consciousness: oriented to person, oriented to place and oriented to time HEENT Head: Yes normal to inspection Neck Neck: Yes normal visual inspection Carotids: no bruits Chest Chest palpation & inspection: normal inspection of the chest Resp Effort & Inspection: normal respiratory effort and able to speak in complete sentences Auscultation: clear to auscultation bilaterally, no crackles, no rales, no rhonchi and no wheezes Cardio Rate: regular rate Rhythm: regular rhythm Heart sounds: S1 normal heart sound present and S2 normal heart sound present Bruits: no carotid bruits Peripheral pulses: Peripheral pulses 2+ throughout GI Inspection: Yes normal to inspection Skin Other: Mild left pretibial varicosity Wounds: no wounds Hair: normal Neuro General: oriented to person, oriented to place and oriented to time Cranial nerves: Yes CN's II-XII intact bilaterally and Yes Normal hearing present Cognition (Neuro): normal cognition Motor exam (neuro): 5/5 motor strength present throughout Extrem Other: venous exam: No significant superficial varicosities or spider telangiectasias, minimal edema General: No clubbing, No cyanosis and No edema Psych Appearance: grossly normal Mental Status: mental status grossly normal Speech and movement: Normal speech and movement present Results Reviewed Results Reviewed: Brief summary of venous insufficiency testing is as follows: right great saphenous vein: negative right small saphenous vein: negative right accessory vein: none present left great saphenous vein: negative left small saphenous vein: negative left accessory vein: none present Please note there is no evidence of any venous aneurysms or significant tortuosity Assessment & Plan Assessment & Plan (1) Varicose veins of left lower extremity with inflammation: Comment: 06/21/2023 - left leg microphlebectomy Code(s): I83.12 - Varicose veins of left lower extremity with inflammation Category: Surgical Plan: I reviewed the case with the patient, explaining that her left lower extremity paroxysm might be linked to a phlebitis-like condition. Symptomatic treatment with warm compresses, ibuprofen, and compression stockings was discussed as beneficial. We discussed the role of her fibromyalgia and Sjogren's syndrome in her symptoms and referred her to rheumatology for specialized care. I emphasized the negative ultrasound results and explained why additional procedural interventions may not yield relief at this time. We explored all treatment alternatives and ensured understanding. The patient agreed to the management plan, and she will follow up with us on an as-needed basis. Thank you for allowing us to assist in her care. Coding Level of Care Code Est Pt Level 4 (57716) Diagnoses Varicose veins of left lower extremity with inflammation I83.12
--- OUTSIDE RECORDS SUMMARY | 2024-08-18 14:56 | XMS_ITS | Encounter Summary ---
Author Organization [employer] Address [address] [facility] 7t [place] [address] Care Team Providers Care Moisture Meter Reader Name Role Phone Mai Mcclain MD Primary Care Provider [phone] Encounter Details Date Type Department Care Team (Late st Contact Info) Description 07/20/2024 Orders Only [facility] [address] [place] [address] Gregor Mack MD [address] [place], [place] [phone] Normocytic anemia (Primary Dx) Social History Tobacco [...] as of this encounter Plan of Treatment Upcoming Encounters Date Type Department Care Team ([facility] st Contact Info) Description 08/24/2024 8:45 AM EDT Office Visit [facility] [address] [place] [address] Destiny Vu MD [address] [place] [address] Scheduled Orders Name Type Priority Associated Diagnoses Orde r Schedule CBC Lab Routine Normocytic anemia Expected: 07/20/2024, Expires: documented as of this encounter Visit Diagnoses Diagnosis Normocytic anemia- Primary Unspecified anemia documented in this encounter Additional Health Concerns Assessment Noted Time PHQ-9 Depression Total Score: 0 10/30/19 23 10:59 AM EDT documented as of this encounter Care Teams Moisture Meter Reader Relationship Specialty Start Date End Date Mai Mcclain MD [address] [place] [address] PCP - General Family Medicine 02/09/22 documented as of this encounter
--- OUTSIDE RECORDS SUMMARY | 2024-08-18 14:56 | XMS_ITS | Encounter Summary ---
Author Organization [employer] Address [address] [facility] [address] [place] [address] Care Team Providers Care Strategic Communications Manager Name Role Phone Mai Mcclain MD Primary Care Provider [phone] Encounter Details Date Type Department Care Team (Late st Contact Info) Description 04/17/2023 Abstract [facility] [address] [place], [place] [phone] Sarah Chung Social History Tobacco Use Types [...] Upcoming Encounters Date Type Department Care Team (Late st Contact Info) Description 08/24/2024 8:45 AM EDT Office Visit [facility] [address] [place] [address] Destiny Vu MD [address] [place] [address] documented as of this encounter Procedures Procedure Name Priority Date/Time Associated Diagnosis Comments PAP/HPV Routine 11/15/2020 documented in this encounter Results * Pap Smear (11/15/2020) Pap Negative for intraephithelial lesion or malignancy Negative for intraephithelial lesion or malignancy, Other HPV Undetected Undetected, Indeterminate, Quantitative, Not Detected us Historical Provider HEALTH MAINTENANCE Final Result documented in this encounter Visit Diagnoses Not on filedocumented in this encounter Additional Health Concerns Assessment Noted Time PHQ-9 Depression Total Score: 0 10/30/19 23 10:59 AM EDT documented as of this encounter Care Teams Strategic Communications Manager Relationship Specialty Start Date End Date Mai Mcclain MD [address] [place] [address] PCP - General Family Medicine 02/09/22 documented as of this encounter
--- OUTSIDE RECORDS SUMMARY | 2024-08-18 14:56 | XMS_ITS | Encounter Summary ---
Author Organization [facility] [facility] Address [address] [place] [address] [address] [place] [address] Care Team Providers Care Wheel Blocker Name Role Phone Mai Mcclain MD Primary Care Provider [phone] Reason for Visit * Reason Comments Med Refill Encounter Details Date Type Department Care Team (Late st Contact Info) Description 11/08/2022 Refill [facility] [address] [place] [address] Mai Mcclain MD [address] [place] [address] Social History Tobacco Use Types Packs/Day Years [...] Description 08/24/2024 8:45 AM EDT Office Visit [facility] [address] [place] [address] Destiny Vu MD [address] [place] [address] documented as of this encounter Visit Diagnoses Not on filedocumented in this encounter Additional Health Concerns Assessment Noted Time PHQ-9 Depression Total Score: 0 10/30/19 10:59 AM EDT documented as of this encounter Care Teams Wheel Blocker Relationship Specialty Start Date End Date Mai Mcclain MD [address] [place] [address] PCP - General Family Medicine 02/09/22 documented as of this encounter
--- OUTSIDE RECORDS SUMMARY | 2024-08-18 14:56 | XMS_ITS | Encounter Summary ---
Author Organization [employer] Address [address] [facility] [address] [place] [address] Care Team Providers Care Clinical Program Manager Name Role Phone Mai Mcclain MD Primary Care Provider [phone] Reason for Visit * Reason Comments Med Refill Encounter Details Date Type Department Care Team (Late st Contact Info) Description 02/21/2024 Refill [facility] [address] [place] [address] Destiny Vu MD [address] [place] [address] Social History Tobacco Use Types Packs/Day Years [...] Description 08/24/2024 8:45 AM EDT Office Visit [facility] [address] [place], [place] [phone] Destiny Vu MD [address] [place] [address] documented as of this encounter Visit Diagnoses Not on filedocumented in this encounter Additional Health Concerns Assessment Noted Time PHQ-9 Depression Total Score: 0 10/30/19 23 10:59 AM EDT documented as of this encounter Care Teams Clinical Program Manager Relationship Specialty Start Date End Date Mai Mcclain MD [address] [place] [address] PCP - General Family Medicine 02/09/22 documented as of this encounter
--- OUTSIDE RECORDS SUMMARY | 2024-08-18 14:56 | XMS_ITS | Clinical Summary ---
Author Organization [employer] Address [address] [facility] 7t [place] [address] Care Team Providers Care Caltrans Equipment Operator Name Role Phone Mai Mcclain MD Primary Care Provider [phone] Allergies Active Allergy Reactions Criticality Noted Date [...] Encounters Date Type Department Care Team Description 08/12/2024 Telephone [facility] [address] [place] [address] Mai Mcclain MD Nurse Triage 08/11/2024 Orders Only GENERIC EXTERNAL DATA DEPARTMENT Provider, Generic External Data 08/05/2024 Telephone [facility] [address] [place] [phone] Mai Mcclain MD Nurse Triage 07/31/2024 Population Health Risk Score [facility] ([facility]) Department [address] [phone] Provider, Population Health Generic 07/24/2024 Telephone [facility] [address] [place] [address] Gregor Mack MD Results 07/21/2024 Refill [facility] [address] [place] [address] Gregor Mack MD Other constipation 07/20/2024 1:15 PM EST Office Visit [facility] [address] [place] [address] Gregor Mack MD Left lower quadrant abdominal pain (Primary Dx); Other constipation 07/20/2024 Orders Only [facility] [address] [place] [address] Gregor Mack MD Normocytic anemia (Primary Dx) 07/20/2024 Travel 07/20/2024 Telephone [facility] [address] [place] [address] Mai Mcclain MD Nurse Triage 06/23/2024 9:20 AM EST Office Visit [facility] [address] [place] [address] Rosas Merlos MD Influenza-like symptoms (Primary Dx); Cough in adult 06/23/2024 Travel 06/19/2024 Telephone [facility] [address] [place] [address] Mai Mcclain MD Nurse Triage from Last 3 Months Immunizations Name Administration [...] your housing situation today? I have rachel sing 04/30/[address] you li [...] 07/20/2024 1:28 PM EST Plan of Treatment Upcoming Encounters Date Type Department Care Team (Late st Contact Info) Description 08/24/2024 8:45 AM EDT Office Visit [facility] [address] [place] [address] Destiny Vu MD [address] [place] [address] Health Maintenance Due Date Last Done Comments [...] Procedure Name Priority Date/Time Associated Diagnosis Comments BACTERIAL VAGINOSIS PANEL Routine 08/11/2024 4:54 PM EDT CHLAMYDIA/N. GONORRHOEAE RNA, TMA, UROGENITAL Routine 08/11/2024 4:54 PM EDT XR KUB AND UPRIGHT 2 VIEWS Routine [...] 06/23/2024 10:12 AM EST Cough in adult HEPATITIS C ANTIBODY Routine 12/23/2023 3:20 PM EDT HIV 1/2 ANTIGEN/ANTIBODY, FOURTH GENERATION W/RFL Routine 12/23/2023 3:20 PM EDT INTRAORAL - COMPLETE SERIES OF RADIOGRAPHIC IMAGES Routine 07/16/2022 8:00 AM EST COMPREHENSIVE ORAL EVALUATION - NEW OR ESTABLISHED PATIENT Routine 07/16/2022 8:00 AM EST HM PAP/HPV Routine 11/15/2020 from Last 3 Months or Most Recently Relevant to Health Maintenance Results * (ABNORMAL) Bacterial Vaginosis (08/11/2024 4:54 PM EDT) TRICHOMONAS VAGINALIS DETECTION BY PCR NOT DETECTED Not Detect [facility] BACTERIAL VAGINOSIS DETECTION BY PCR POSITIVE(A) Negative [facility] Comment:The BV organism targ ets of the Xpert Xpress MVP test can becommensal in women; Xpert Xpress MVP positive results forbacterial vaginosis should be considered in conjunction withother clinical and patient information to determine thedisease status. Organisms that are not detected by the XpertXpress MVP test have also been reported to be associatedwith BV and aerobic vaginitis.The Xpert Xpress MVP test performance has not been evaluatedin patients under the age of 14. MARGARETH GROUP DETECTION BY PCR DETECTED(A) Not Detect [facility] Margareth glab krusei PCR NOT DETECTED Not Detect [facility] 08/11/2024 4:54 PM EDT 08/11/2024 4:55 PM EDT us Generic External Data Provider LAB MICROBIOLOGY - GENERAL ORDERABLES Final Result [facility] [address] [place] [phone] * Chlamydia/N. Gonorrhoeae RNA, TMA, Urogenitial (08/11/2024 4:54 PM EDT) CT PCR NOT DETECTED Not Detect. [facility] Comment:A not detected test result does not exclude the possibilityof infection because test results can be affected byimproper specimen collection, concurrent antibiotic therapy,or the number of organisms in the specimen which may bebelow the sensitivity of the test. As with many diagnostictests, results from the Xpert CT/NG assay should beinterpreted in conjunction with other laboratory andclinical data available to the clinician.Xpert CT/NG performance has not been evaluated in patientsless than 14 years of age. The assay should not be used forthe evaluationof suspected sexual abuse or for other medico-legalindications. Additional testing is recommended in anycircumstance when false positive or false negative resultscould lead to adverse medical, social or psychologicalconsequences. NG PCR NOT DETECTED Not Detect. [facility] Comment:A not detected test result does not exclude the possibilityof infection because test results can be affected byimproper specimen collection, concurrent antibiotic therapy,or the number of organisms in the specimen which may bebelow the sensitivity of the test. As with many diagnostictests, results from the Xpert CT/NG assay should beinterpreted in conjunction with other laboratory andclinical data available to the clinician.Xpert CT/NG performance has not been evaluated in patientsless than 14 years of age. The assay should not be used forthe evaluationof suspected sexual abuse or for other medico-legalindications. Additional testing is recommended in anycircumstance when false positive or false negative resultscould lead to adverse medical, social or psychologicalconsequences. 08/11/2024 4:54 PM EDT 08/11/2024 4:55 PM EDT Narrative [facility] - 08/12/2024 6:04 AM EDT Vaginal us Generic External Data Provider LAB MICROBIOLOGY - GENERAL ORDERABLES Final Result Performing Organization Address City/State/[facility] Co de Phone Number [facility] [address] [place] [phone] * XR KUB and Upright 2 Views (07/21/2024 8:41 AM EST) Anatomical Region Laterality Modality Radiographic Garima ging 07/21/2024 8:41 AM EST Narrative 07/21/2024 2:08 PM EST ? [facility] ?[address] [place] [address] [address] [place] [address] ?XRay Report ? Signed ? Patient: Alexis,Beatriz ?MR#: [id number] ?? 7 ? : 1985 ?Acct:[id number] ? Age/Sex: 38 / F ?ADM Date: 03/04/25 ? Loc: HO.XRAY ? Attending : Gregor Mack MD ? Ordering Physician: Gregor Mack MD ?? Date of Service: 07/21/24 ?? Procedure(s): XR KUB ?? Accession Number(s): [id number] ? cc: Gregor Mack MD; Mai Mcclain [...] DD/ 0841 ? TD/TT: 07/21/24 0858 ? Die Cutter: MSM ? Procedure Note [place], Image - 07/21/2024 [place] [address] XRay Report Signed Patient: Michael Espinoza#: [id number] 7 : 1985Acct:[id number] Age/Sex: 38 / FADM Date: 07/21/24 Loc: [facility] Attending Dr: Gregor Mack MD Ordering Physician: Gregor Mack MD Date of Service: 07/21/24 Procedure(s): XR KUB Accession Number(s): [id number] cc: Gregor Mack MD; Mai Mcclain MD [...] by: Massimo Tobar MD 07/21/2024 02:04 PM [facility] Dictated By: Massimo Tobar MD Signed By: <Electronically signed by Massimo Toabr MD in OV> 07/21/24 1404 DD/ 0841 TD/TT: 07/21/24 0858 Die Cutter: VARGAS us Gregor Mack MD IMG XR PROCEDURES Final Res ult * (ABNORMAL) CBC auto differential (07/20/2024 2:11 PM EST) White Blood Count 7.5 4.8 - 10.8 X10*3/uL [facility] Red Blood Count 4.28 4.20 - 5.50 X10*6/uL [facility] Hemoglobin 11.0(L) 12.0 - 16.0 g/dl [facility] Hematocrit 34.6(L) 37.0 - 47.0 % [facility] Mean Corpuscular Volume 80.8 80.0 - 98.0 fL [facility] Mean Corpuscular Hemoglobin 25.7(L) 27.0 - 33.0 pg [facility] Mean Corpuscular HGB Conc 31.8 31.0 - 35.0 g/dl [facility] Red Cell Distribution Width 15.9 11.0 - 16.0 % [facility] Platelet Count 310 160 - 400 X10*3/uL [facility] Mean Platelet Volume 11.5 9.4 - 12.3 fL [facility] Neutrophils Percent Auto 64.9 45 - 73 % [facility] Imm Gran Pct Auto 0.3 0.0 - 0.4 % [facility] Lymphocytes Percent Auto 24.0 20 - 40 % [facility] Monocytes Percent Auto 7.2 2 - 11 % [facility] Eosinophils Percent Auto 2.9 0 - 4 % [facility] Basophils Percent Auto 0.7 0 - 2 % [facility] NRBC Pct Auto 0.0 0.0 - 0.2 /100WBC [facility] Neutrophils Absolute Auto 4.9 2.0 - 8.3 x10*3/uL [facility] Imm Gran Abs Auto 0.02 0.00 - 0.03 X10*3/uL [facility] Lymphocytes Absolute Auto 1.8 1.2 - 4.9 X10*3/uL [facility] Monocytes Absolute Auto 0.5 0.1 - 1.2 X10*3/uL [facility] Eosinophils Absolute Auto 0.2 0.0 - 0.4 X10*3/uL [facility] Basophils Absolute Auto 0.1 0.0 - 0.2 X10*3/uL [facility] NRBC Abs Auto 0.000 0.0 - 0.012 X10*3/uL [facility] Blood Venous blood specimen / Unknown 07/20/2024 2:11 PM EST 07/20/2024 5:45 PM EST us Gregor Mack MD LAB BLOOD ORDERABLES Final Result Performing Organization Address City/[facility]/ZIP Co de Phone Number [facility] [address] [place] [address] [phone] * Sed Rate by Modified Westergren (07/20/2024 2:11 PM EST) Erythrocyte Sedimentation Rate 9 0 - 20 MM/HR [facility] Comment:Patients with polycy themia and many hemoglobin abnormalitiesmay have depressed sed rates whereas patients with anemiamay have elevated sed rates. Blood Venous blood specimen / Unknown 07/20/2024 2:11 PM EST 07/20/2024 5:45 PM EST us Gregor Mack MD LAB BLOOD ORDERABLES Final Result Performing Organization Address City/[facility]/ZIP Co de Phone Number [facility] [address] [place] [phone] * C-reactive Protein (07/20/2024 2:11 PM EST) C Reactive Protein 0.24 < or = 0.50 mg/dL [facility] Blood Venous blood specimen / Unknown 07/20/2024 2:11 PM EST 07/20/2024 5:45 PM EST Gregor Mack MD LAB BLOOD ORDERABLES Final Result Performing Organization Address [facility] Co de Phone Number [facility] [address] [place] [phone] * POCT Rapid Influenza A TALLEY ID NOW (06/23/2024 10:13 AM EST) Influenza A Negative Negative, Indeterminate [facility] QC Media Lot # [id number] [facility] Lot# Expiration Date [facility] Swab 06/23/2024 10:1 3 AM EST Rosas Merlos MD POINT OF CARE TEST ENTER/EDIT OR DERABLES Final Result Performing Organization Address [facility] Co de Phone Number [facility] [address] [place] [phone] * POCT Rapid Influenza B TALLEY ID NOW (06/23/2024 10:12 AM EST) [facility] Influenza B Negative Negative, Indeterminate [facility] QC Media Lot # [id number] [facility] Lot# Expiration Date [facility] Swab 06/23/2024 10:1 2 AM EST Rosas Merlos MD POINT OF CARE TEST ENTER/EDIT OR DERABLES Final Result Performing Organization Address [facility] Co de Phone Number [facility] [address] [place] [phone] * POCT Rapid Covid-19 BinaxNOW (06/23/2024 10:12 AM EST) Pathologist [facility] Rapid COVID Ag Negative QC Media Lot # [id number] Lot# Expiration Date Swab 06/23/2024 10:1 2 AM EST Rosas Merlos MD POINT OF CARE TEST ENTER/EDIT OR DERABLES Final Result * Hepatitis C Ab (12/23/2023 3:20 PM EDT) Hepatitis C Antibody Nonreactive Nonreactive [facility] Comment:Antibodies to HCV no t detected; does not exclude early acuteHCV infection. 12/23/2023 3:20 PM EDT 12/23/2023 5:36 PM EDT Generic External Data Provider LAB BLOOD ORDERAB LES Final Result Performing Organization Address [facility] Co de Phone Number [facility] [address] [place] [phone] * HIV-1/2 Antigen and Antibodies, Fourth Generation, with Reflexes (12/23/2023 3:20 PM EDT) Pathologist [facility] HIV AB/AG Nonreactive Nonreactive [facility] Comment:HIV-1 p24 Ag and/or HIV-1/HIV-2 Ab not detected.A test result that is nonreactive does not exclude thepossibility of exposure to or infection with HIV-1 and/orHIV-2. Nonreactive results in this assay for individualswith prior exposure to HIV-1 and/or HIV-2 may be due toantigen and antibody levels that are below the limit ofdetection of this assay.The PotentialniDashbook HIV Ag/Ab Combo assay result andsupplemental assay results should be interpreted inconjunction with the patient's clinical presentation,history and other laboratory results. If the results areinconsistent with clinical evidence, additional testing issuggested to confirm the result. 12/23/2023 3:20 PM EDT 12/23/2023 5:36 PM EDT us Generic External Data Provider LAB BLOOD ORDERAB LES Final Result Performing Organization Address [facility]/ZIP Co de Phone Number [facility] [address] [place] [phone] * Pap Smear (11/15/2020) Pap Negative for intraephithelial lesion or malignancy Negative for intraephithelial lesion or malignancy, Other HPV Undetected Undetected, Indeterminate, Quantitative, Not Detected us Historical Provider HEALTH MAINTENANCE Final Result from Last 3 Months or Most Recently Relevant to Health Maintenance Insurance [facility] C3 DENTAL[facility] MEDICAID STAND ADULT Care Teams Caltrans Equipment Operator Relationship Specialty Start Date End Date Mai Mcclain MD [address] [place] [phone] PCP - General Family Medicine 02/09/22
== END 2024-08-18 13:41 | disposition home or self-care (01) ==
LOC: HO.HVS 12:48
PROVIDERS: PCP Family Medicine; Visit Provider Surgery Vascular Surgery
DX: I83.12 Varicose veins of left lower extremity with inflammation (principal)
CPT/HCPCS: 99214

== ENCOUNTER → 2024-08-18 12:48 | Outpatient (BNVA) | payer MEDICAID, SELFPAY | PROVIDERS: PCP Family Medicine; Visit Provider Surgery Vascular Surgery | DX: I83.12 Varicose veins of left lower extremity with inflammation (principal) | CPT/HCPCS: 99212 ==

== ENCOUNTER 2024-12-23 11:59 | Outpatient (REF) | payer MEDICAID, SELFPAY ==
[2024-12-23 12:54] LABS: Hematocrit 35.0 % (37.0-47.0); Hemoglobin 11.4 g/dl (12.0-16.0); Mean Corpuscular HGB Conc 32.6 g/dl (31.0-35.0); Mean Corpuscular Hemoglobin 26.1 pg (27.0-33.0); Mean Corpuscular Volume 80.1 fL (80.0-98.0); NRBC Abs Auto 0.000 X10*3/uL (0.0-0.012); NRBC Pct Auto 0.0 /100WBC (0.0-0.2); Platelet Count 268 X10*3/uL (160-400); Red Blood Count 4.37 X10*6/uL (4.20-5.50); White Blood Count 6.2 X10*3/uL (4.8-10.8)
[2024-12-23 14:17] LABS: Syphilis Screen Nonreactive (Nonreactive)
[2024-12-23 14:18] LABS: HBsAGNum1 0.35 S/CO (0.00-0.99); HIV Num 1 0.06 S/CO (0.00-0.99); Hepatitis B Surface Antigen Negative (Negative); ~HepC Num1 0.17 S/CO (0.00-0.79); ~Hepatitis C Antibody Nonreactive (Nonreactive)
== END 2024-12-23 12:00 | disposition home or self-care (01) ==
LOC: HO.LAB 11:59
PROVIDERS: PCP Family Medicine; Visit Provider Obstetrics & Gynecology
DX: N93.0 Postcoital and contact bleeding (principal); Z20.2 Contact with and (suspected) exposure to infections with a predominantly sexual mode of transmission; Z11.3 Encounter for screening for infections with a predominantly sexual mode of transmission; Z01.84 Encounter for antibody response examination; Z11.4 Encounter for screening for human immunodeficiency virus [HIV]; Z11.59 Encounter for screening for other viral diseases; Z11.8 Encounter for screening for other infectious and parasitic diseases
CPT/HCPCS: 36415; 81515; 84443; 85027; 86780; 86803; 87340; 87389; 87491; 87591; 99212

== ENCOUNTER 2024-12-23 11:59 | Outpatient (AMB) | payer MEDICAID, SELFPAY ==
[2024-12-23 12:04] VITALS: BMI 26.0
--- NOTE | 2024-12-23 12:04 | MHC.OFFVIS ---
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 Last co testing in 08/10 was negative PFSH Medical History Subcutaneous nodule Sjogren's disease Fibromyalgia Surgical History H/O tubal ligation Hx of cosmetic surgery Hx of section Family History Paternal Aunt Breast cancer Sister Multiple organ failure with heart failure Social History Alcohol intake: current Alcohol intake frequency: holidays/special occasions only Patient Tobacco Use Status: Never used Tobacco Gender identity: Female Female Reproductive History Menstrual Age of Menarche: 14 Review of Systems Const All systems reviewed & are unremarkable except as noted in HPI and below Physical Exam Vital Signs: BMI result Body Mass Index 26.0 General: Yes no CVA tenderness External Female Exam: normal external appearance and normal appearance of the urethra Speculum Exam - Vagina: normal appearance of the vagina, normal palpation, no lesions and no masses Speculum Exam - Cervix: normal appearance of the cervix, normal palpation, no lesions, no masses and nontender Bimanual exam- vagina & uterus: normal bimanual exam, normal palpation, normal palpation, uterine shape normal, No Cervical tenderness present, non-tender and enlarged Bimanual Exam- Adnexa, other: normal adnexae Back/Spine/Pelvis Back: no CVA tenderness Assessment & Plan Assessment & Plan (1) Postcoital bleeding: Code(s): N93.0 - Postcoital and contact bleeding Category: Medical Plan: GC and chlamydia with BV panel taken CBC, TSH, HCG, and pelvic ultrasound ordered. Discussed with the patient the different causes of abnormal bleeding including thyroid disorders, uterine and ovarian pathology, endometrial hyperplasia, carcinoma and other potential causes. Discussed with the patient the work up including CBC (to r/o anemia), TSH, pelvic Ultrasound, endometrial biopsy/endocervical curettage to r/o endometrial/endocervical pathology. All questions answered and the patient verbalized understanding. Instructed the patient to schedule an appointment for an endometrial biopsy in 2 weeks. (2) Encounter for screening examination for sexually transmitted disease: Code(s): Z11.3 - Encounter for screening for infections with a predominantly sexual mode of transmission Category: Medical Plan: STD screening tests done includes: BV panel for trichomonas, GC/CT will send patient for serology std screening for HIV, RPR, Hep b s Ag, HepC Ab. Instructions given the patient to schedule a follow-up appointment for repeat serology screen in 6 months for possible false negatives. Orders: Orders Complete Blood Count no Diff Today N93.9 - Abnormal uterine and vaginal bleeding, unspecified US pelvic and transvaginal Today N93.9 - Abnormal uterine and vaginal bleeding, unspecified Hepatitis C Antibody Today Z20.2 - Contact with and (suspected) exposure to infections with a predominantly sexual mode of transmission HIV Ab/Ag Today Z20.2 - Contact with and (suspected) exposure to infections with a predominantly sexual mode of transmission Syphilis Screen Today Z20.2 - Contact with and (suspected) exposure to infections with a predominantly sexual mode of transmission TSH reflex Free T4 Today N93.9 - Abnormal uterine and vaginal bleeding, unspecified Hepatitis B Surface Antigen Today Z20.2 - Contact with and (suspected) exposure to infections with a predominantly sexual mode of transmission Coding Level of Care Code Est Pt Level 3 (60710) Diagnoses Postcoital bleeding N93.0 Encounter for screening examination for sexually transmitted disease Z11.3
--- OUTSIDE RECORDS SUMMARY | 2024-12-23 12:44 | XMS_ITS | Encounter Summary ---
Author Organization [employer] Address [address] [facility] 7t [place] [address] Care Team Providers Care Coal Cager Name Role Phone Mai Mcclain MD Primary Care Provider [phone] Encounter Details Date Type Department Care Team (Late st Contact Info) Description 07/20/2024 Orders Only [facility] MED[facility]INE [address] [place] [address] Gregor Mack MD [address] [place], [place] [phone] Normocytic anemia (Primary Dx) Social History Tobacco [...] documented as of this encounter Care Teams Coal Cager Relationship Specialty Start Date End Date Mai Mcclain MD [address] [place] [address] PCP - General Family Medicine 02/09/22 documented as of this encounter
== END 2024-12-23 12:58 | disposition home or self-care (01) ==
LOC: HO.HWS 12:00
PROVIDERS: PCP Family Medicine; Visit Provider Obstetrics & Gynecology
DX: N93.0 Postcoital and contact bleeding (principal); Z11.3 Encounter for screening for infections with a predominantly sexual mode of transmission
CPT/HCPCS: 99213

== ENCOUNTER 2024-12-23 12:57 | Outpatient (REF) | payer MEDICAID, SELFPAY ==
[2024-12-23 17:13] LABS: Bacterial Vaginosis PCR POSITIVE (Negative); Candida Group PCR NOT DETECTED (Not Detect); Candida glab krusei PCR NOT DETECTED (Not Detect); Trichomonas vaginalis PCR NOT DETECTED (Not Detect)
[2024-12-23 17:42] LABS: CT PCR NOT DETECTED (Not Detect.); NG PCR NOT DETECTED (Not Detect.)
== END 2024-12-23 12:58 | disposition home or self-care (01) ==
LOC: HO.LNP 12:57
PROVIDERS: Visit Provider Obstetrics & Gynecology
DX: Z13.89 Encounter for screening for other disorder (principal)
CPT/HCPCS: 81515; 87491; 87591

== ENCOUNTER 2025-01-01 14:19 | Outpatient (REF) | payer MEDICAID, SELFPAY ==
--- NOTE | ~2025-01-01 | US_ITS ---
EXAMINATION: US PELVIS TRANSABDOMINAL AND TRANSVAGINAL HISTORY: N93.9 - Abnormal uterine and vaginal bleeding, unspecified COMPARISON: There are no prior studies available for comparison. TECHNIQUE: Transabdominal and endovaginal real-time 2D sullivan-scale ultrasound was performed. FINDINGS: Uterus: The uterus is mildly enlarged, measuring 12.2 x 4.8 x 5.7 cm. Myometrium has a normal echotexture. No fibroids are identified. Endometrium: The endometrial stripe measures 11 mm in thickness. There is a nabothian cyst in the cervix. Right ovary: The right ovary measures 1.8 x 2.0 x 2.5 cm. The right ovary is normal in size and echotexture. Left ovary: The left ovary measures 2.4 x 2.7 x 2.0 cm. The left ovary is normal in size and echotexture. Pelvic fluid: none. US/US pelvic and transvaginal IMPRESSION: Mildly enlarged uterus without evidence of fibroids. The endometrial stripe measures 11 mm in thickness. Electronically signed by: Richi Moya MD 01/01/2025 03:17 PM EDT
--- OUTSIDE RECORDS SUMMARY | 2025-01-01 14:22 | XMS_ITS | Encounter Summary ---
Author Organization [employer] Address [address] [facility] [address]t [place] [address] Care Team Providers Care Configuration Release Manager Name Role Phone Mai Mcclain MD Primary Care Provider [phone] Encounter Details Date Type Department Care Team (Late st Contact Info) Description 07/20/2024 Orders Only [facility] MEDICINE [address] [place] [address] Gregor Mack MD [address] [place], [place] [phone] Normocytic anemia (Primary Dx) Social History Tobacco [...] documented as of this encounter Care Teams Configuration Release Manager Relationship Specialty Start Date End Date Mai Mcclain MD [address] [place] [address] PCP - General Family Medicine 02/09/22 documented as of this encounter
== END 2025-01-01 14:20 | disposition home or self-care (01) ==
LOC: HO.US 14:19
PROVIDERS: PCP Family Medicine; Visit Provider Obstetrics & Gynecology
DX: N93.9 Abnormal uterine and vaginal bleeding, unspecified (principal)
CPT/HCPCS: 76830; 76856

== ENCOUNTER → 2025-01-01 14:24 | Outpatient (BNV) | payer MEDICAID, SELFPAY | PROVIDERS: PCP Family Medicine; Visit Provider Radiology Diagnostic Radiology | DX: N85.2 Hypertrophy of uterus (principal) | CPT/HCPCS: 76830; 76856 ==

== ENCOUNTER 2025-01-13 13:19 | Outpatient (AMB) | payer MEDICAID, SELFPAY ==
--- NOTE | 2025-01-13 13:24 | MHC.OFFVIS ---
Intake Visit Reasons: ultrasound follow up Accompanied by: Self / Same As Patient Allergies oxycodone (From Percocet) Allergy (Mild, Verified 01/13/25 13:24) Stomach Upset bee pollen (bee stings) Adverse Reaction (Verified 01/13/25 13:24) Shortness of Breath HPI Comments Details: Presenting for follow-up. The workup done so far included the following H&H 11.4/35 TSH within normal GC/CT negative BV panel positive, the patient is started on metronidazole yesterday Last co testing in 2023 was negative Pelvic ultrasound showed the following: Uterus: The uterus is mildly enlarged, measuring 12.2 x 4.8 x 5.7 cm. Myometrium has a normal echotexture. No fibroids are identified. Endometrium: The endometrial stripe measures 11 mm in thickness. There is a nabothian cyst in the cervix. Right ovary: The right ovary measures 1.8 x 2.0 x 2.5 cm. The right ovary is normal in size and echotexture. Left ovary: The left ovary measures 2.4 x 2.7 x 2.0 cm. The left ovary is normal in size and echotexture. Pelvic fluid: none. PFSH Medical History Subcutaneous nodule Sjogren's disease Fibromyalgia Surgical History H/O tubal ligation Hx of cosmetic surgery Hx of section Family History Paternal Aunt Breast cancer Sister Multiple organ failure with heart failure Social History Alcohol intake: current Alcohol intake frequency: holidays/special occasions only Patient Tobacco Use Status: Never used Tobacco Gender identity: Female Female Reproductive History Menstrual Age of Menarche: 14 Review of Systems Const All systems reviewed & are unremarkable except as noted in HPI and below Reports as per HPI and Reports no additional complaints GI Reports no additional complaints Reports no additional complaints Assessment & Plan Assessment & Plan (1) Postcoital bleeding: Code(s): N93.0 - Postcoital and contact bleeding Category: Medical Plan: Discussed with the patient the workup done so far. Recommended schedule EMB/ECC to rule out endometrial/endocervical pathology including endometrial/endocervical hyperplasia or malignancy. The patient requested of the procedure done under paracervical block. Instructions given the patient to schedule the procedure after completion of metronidazole course. All questions answered, the patient verbalized understanding Coding Level of Care Code Est Pt Level 3 (08449) Diagnoses Postcoital bleeding N93.0
--- OUTSIDE RECORDS SUMMARY | 2025-01-13 14:09 | XMS_ITS | Encounter Summary ---
Author Organization [employer] Address [address] [facility] [address] 7t [place] [address] Care Team Providers Care Complex Care Nurse Name Role Phone Mai Mcclain MD Primary Care Provider [phone] Reason for Visit * Reason Comments Med Refill Encounter Details Date Type Department Care Team (Late st Contact Info) Description 02/21/2024 Refill [facility] [address] [place] [address] Destiny Vu MD [address] [place], [place] [phone] Social History Tobacco Use Types Packs/Day Years [...] documented as of this encounter Care Teams Complex Care Nurse Relationship Specialty Start Date End Date Mai Mcclain MD [address] [place] [address] PCP - General Family Medicine 02/09/22 documented as of this encounter
--- OUTSIDE RECORDS SUMMARY | 2025-01-13 14:09 | XMS_ITS | Clinical Summary ---
Author Organization [employer] Address [address] [facility] 7t [place] [address] Care Team Providers Care Filler Shredder Machine Name Role Phone Mai Mcclain MD Primary Care Provider [phone] Allergies Active Allergy Reactions Criticality Noted Date [...] (pain). 150 g 3 05/11/20 24 Active Spacer/Aero-Hold ing Chambers (OptiChamber Liyah) misc 1 each every 4 (four) hours if needed (asthma). 1 each 06/23/19 25 Active polyethylene glycol, PEG, 3350 (Glycolax) 17 GM/SCOOP powderIndication s:Other constipation DISSOLVE 17 GRAMS IN 8 OZ OF FLUID LIQUID DRINK DAILY DIRECTED 238 g 07/23/19 25 Active albuterol (Ventolin HFA) 108 (90 Base) MCG/ACT inhaler INHALE 2 PUFFS EVERY 4 (FOUR) HOURS IF NEEDED FOR WHEEZING OR SHORTNESS OF BREATH. 18 g 3 08/26/19 25 Active Dextromethorphan -guaiFENesin (Mucinex DM) 30-600 MG tablet sustained-releas e 12 hour Use 1 tab TID 28 tablet 08/25/19 25 Active ferrous sulfate 325 (65 Fe) MG EC tabletIndication s:Normocytic anemia TAKE 1 TABLET BY MOUTH WITH BREAKFAST. DO NOT CRUSH, CHEW OR SPLIT. 90 tablet 1 10/22/19 25 Active Active Problems Problem Noted Date Diagnosed [...] Encounters Date Type Department Care Team Description 01/08/2025 Telephone [facility] [address] [place] [address] Mai Mcclain MD Nurse Triage 12/23/2024 Orders Only GENERIC EXTERNAL DATA DEPARTMENT Provider, Generic External Data 10/29/2024 1:00 PM EDT Office Visit [facility] [address] [place], [place] [phone] Gregor Mack MD Right upper quadrant abdominal pain (Primary Dx); Bloating 10/29/2024 Travel 10/29/2024 Telephone [facility] [address] [place], [place] [phone] Mai Mcclain MD Nurse Triage 10/21/2024 Refill [facility] [address] [place], [place] [phone] Gregor Mack MD Normocytic anemia from Last 3 Months Immunizations Immunization Administration Dates Next Due DTaP 04/06/1992, 2,11/10/1987,1987,03/28/1987 [...] Access Q2 Not on file 04/30/2024 Comments No Sex and Gender Information Value Date Recorded Sex Assigned at Female 03/19/2022 10:14 AM EDT Legal Sex Female 10:14 AM EDT Gender Identity Female 03/19/2022 10:14 AM EDT Sexual Orientation Straight 03/19/2022 10 :14 AM EDT Last Filed Vital Signs Vital Sign Reading Time Taken Comments Blood Pressure 105/65 10/29/2024 1:08 PM EDT Pulse 60 10/29/2024 1:08 PM EDT Temperature 36.6 C (97.8 F) 10/29/2024 1:08 PM EDT Respiratory Rate 20 10/29/2024 1:08 PM EDT Oxygen Saturation 98% 10/29/2024 1:08 PM EDT Inhaled Oxygen Concentration - - Weight 61.2 kg (135 lb) 10/29/2024 1:08 PM EDT Height 157.5 cm (5' 2 ) 10/29/2024 1:08 PM EDT Body Mass Index 24.69 10/29/2024 1:08 PM EDT Plan of Treatment Health Maintenance Due Date Last Done Comments Dental Prophylaxis 1985 Disability Screening 1985 Family Planning (PISQ) 2001 HPV Vaccines (1 - 3-dose series) 2001 Hepatitis B Vaccines (1 of 3 - 19+ 3-dose series) 2005 Dental Oral Exam 01/14/2023 07/16/2022 Dental X-Ray: Bitewings 07/17/2023 07/16/2022 COVID-19 Vaccine ( season) 2024 02/22/2021, 02/01/2021 Influenza Vaccine (#1) 2025 SDOH Screening 04/30/2025 04/30/2024 Alcohol/Substance Use Screening 05/11/2025 05/11/2024 Depression Screening 05/11/2025 05/11/2024, 10/30/19 Dental X-Ray: Full Mouth 07/17/2025 07/16/2022 Tobacco Screening 10/29/2025 10/29/2024 Cervical Cancer Screening 11/15/2025 HPV/Cotest 11/15/2025 11/15/2020 [...] to complete this topic HIV Screening Completed 12/23/2024, 12/23/2023 Hepatitis C Screening Completed 12/23/2024, 024 Hepatitis A Vaccines Aged Out No long er eligible based on patient's age to complete this topic Meningococcal B Vaccine Aged Out No l onger eligible based on patient's age to complete this topic Meningococcal Vaccine Aged Out No kenisha debby eligible based on patient's age to complete this topic Pneumococcal Vaccine: Pediatrics (0 to 5 Years) and At-Risk Patients (6 to 49) Years Aged Out No longer eligible based on patient's age to complete this topic RSV under 20 months Aged Out No longe r eligible based on patient's age to complete this topic Rotavirus Vaccines Aged Out No longer eligible based on patient's age to complete this topic Procedures Procedure Name Priority Date/Time Associated Diagnosis Comments US PELVIS TRANSVAGINAL Routine 2:40 PM EDT HEPATITIS B SURFACE ANTIGEN, EIA Routine 12/23/2024 12:31 PM EDT HIV 1/2 ANTIGEN/ANTIBODY, FOURTH GENERATION W/RFL Routine 12/23/2024 12:31 PM EDT HEPATITIS C ANTIBODY Routine 12/23/2024 12:31 PM EDT TSH W/REFLEX TO FT4 Routine 12/23/2024 1 2:31 PM EDT SYPHILIS SCREEN Routine 12/23/2024 12:31 PM EDT CBC Routine 12/23/2024 12:31 PM EDT INTRAORAL - COMPLETE SERIES OF RADIOGRAPHIC IMAGES Routine 07/16/2022 8:00 AM EST COMPREHENSIVE ORAL EVALUATION - NEW OR ESTABLISHED PATIENT Routine 07/16/2022 8:00 AM EST HM PAP/HPV Routine 11/15/2020 from Last 3 Months or Most Recently Relevant to Health Maintenance Results * US Pelvis Transvaginal (01/01/2025 2:40 PM EDT) Anatomical Region Laterality Modality Pelvis Ultrasound 01/01/2025 2:40 PM EDT Narrative 01/01/2025 3:20 PM EDT [address] [address] Ultrasound Report Signed Patient: Beatriz Espinoza MR#: [id number] 7 : 1985 Acct:[id number] Age/Sex: 39 / F ADM Date: 01/01/25 Loc: .US Attending Dr: Robin Guerra MD Ordering Physician: Robin Guerra MD Date of Service: 01/01/25 Procedure(s): US pelvic and transvaginal Accession Number(s): [id number] cc: Mai Mcclain MD; Robin Guerra MD EXAMINATION: US PELVIS TRANSABDOMINAL AND TRANSVAGINAL HISTORY: N93.9 - Abnormal uterine and vaginal bleeding, unspecified COMPARISON: There are no prior studies available for comparison. TECHNIQUE: Transabdominal and endovaginal real-time 2D sullivan-scale ultrasound was performed. FINDINGS: Uterus: The uterus is mildly enlarged, measuring 12.2 x 4.8 x 5.7 cm. Myometrium has a normal echotexture. No fibroids are identified. Endometrium: The endometrial stripe measures 11 mm in thickness. There is a nabothian cyst in the cervix. Right ovary: The right ovary measures 1.8 x 2.0 x 2.5 cm. The right ovary is normal in size and echotexture. Left ovary: The left ovary measures 2.4 x 2.7 x 2.0 cm. The left ovary is normal in size and echotexture. Pelvic fluid: none. US/US pelvic and transvaginal IMPRESSION: Mildly enlarged uterus without evidence of fibroids. The endometrial stripe measures 11 mm in thickness. Electronically signed by: Richi Moya MD 01/01/2025 03:17 PM EDT Dictated By: Richi Moya MD Signed By: <Electronically signed by Richi Moya MD in OV> 01/01/25 1517 DD/ 1440 TD/TT: 01/01/25 1454 Head Custodian: Procedure Note Donotuseinterpreter, Image - 01/01/[address] [address] Ultrasound Report Signed Patient: Michael Espinoza#: [id number] 7 : 1985Acct:[id number] Age/Sex: 39 / FADM Date: 01/01/25 Loc: HO.US Attending Dr: Robin Guerra MD Ordering Physician: Robin Guerra MD Date of Service: 01/01/25 Procedure(s): US pelvic and transvaginal Accession Number(s): [id number] cc: Mai Mcclain MD; Robin Guerra MD EXAMINATION: US PELVIS TRANSABDOMINAL AND TRANSVAGINAL HISTORY: N93.9 - Abnormal uterine and vaginal bleeding, unspecified COMPARISON: There are no prior studies available for comparison. TECHNIQUE: Transabdominal and endovaginal real-time 2D sullivan-scale ultrasound was performed. FINDINGS: Uterus: The uterus is mildly enlarged, measuring 12.2 x 4.8 x 5.7 cm. Myometrium has a normal echotexture. No fibroids are identified. Endometrium: The endometrial stripe measures 11 mm in thickness. There is a nabothian cyst in the cervix. Right ovary: The right ovary measures 1.8 x 2.0 x 2.5 cm. The right ovary is normal in size and echotexture. Left ovary: The left ovary measures 2.4 x 2.7 x 2.0 cm. The left ovary is normal in size and echotexture. Pelvic fluid: none. US/US pelvic and transvaginal IMPRESSION: Mildly enlarged uterus without evidence of fibroids. The endometrial stripe measures 11 mm in thickness. Electronically signed by: Richi Moya MD 01/01/2025 03:17 PM EDT Dictated By: Richi Moya MD Signed By: <Electronically signed by Richi Moya MD in OV> 01/01/25 1517 DD/ 1440 TD/TT: 01/01/25 1450 Head Custodian: us [facility] External Provider IMG US PROCEDURES Final Result * Syphilis Screen (12/23/2024 12:31 PM EDT) Syphilis Screen Nonreactive Nonreactive [facility] 12/23/2024 12:3 1 PM EDT 12/23/2024 12:35 PM EDT Generic External Data Provider LAB BLOOD ORDERAB LES Final Result [facility] [address] [place] [phone] * Hepatitis C Ab (12/23/2024 12:31 PM EDT) Hepatitis C Antibody Nonreactive Nonreactive [facility] Comment:Antibodies to HCV no t detected; does not exclude early acuteHCV infection. 12/23/2024 12:3 1 PM EDT 12/23/2024 12:35 PM EDT Generic External Data Provider LAB BLOOD ORDERAB LES Final Result Performing Organization Address [facility]/ZIP Co de Phone Number [facility] [address] [place] [phone] * TSH with Reflex to Free T4 (12/23/2024 12:31 PM EDT) TSH reflex Free T4 1.19 0.32 - 4.0 uIU/mL [facility] 12/23/2024 12:3 1 PM EDT 12/23/2024 12:35 PM EDT Generic External Data Provider LAB BLOOD ORDERAB LES Final Result Performing Organization Address City/[facility]/ZIP Co de Phone Number [facility] [address] [place] [phone] * Hepatitis B surface antigen, EIA (12/23/2024 12:31 PM EDT) Pathologist [facility] Hepatitis B Surface Ag Negative Negative [facility] 12/23/2024 12:3 1 PM EDT 12/23/2024 12:35 PM EDT us Generic External Data Provider LAB BLOOD ORDERAB LES Final Result Performing Organization Address City/[facility]/ZIP Co de Phone Number [facility] [address] [place] [phone] * HIV-1/2 Antigen and Antibodies, Fourth Generation, with Reflexes (12/23/2024 12:31 PM EDT) [facility] HIV AB/AG Nonreactive Nonreactive [facility] Comment:HIV-1 p24 Ag and/or HIV-1/HIV-2 Ab not detected.A test result that is nonreactive does not exclude thepossibility of exposure to or infection with HIV-1 and/orHIV-2. Nonreactive results in this assay for individualswith prior exposure to HIV-1 and/or HIV-2 may be due toantigen and antibody levels that are below the limit ofdetection of this assay.The [employer] HIV Ag/Ab Combo assay result andsupplemental assay results should be interpreted inconjunction with the patient's clinical presentation,history and other laboratory results. If the results areinconsistent with clinical evidence, additional testing issuggested to confirm the result. 12/23/2024 12:3 1 PM EDT 12/23/2024 12:35 PM EDT us Generic External Data Provider LAB BLOOD ORDERAB LES Final Result Performing Organization Address City/[facility]/ZIP Co de Phone Number [facility] [address] [place] [phone] * (ABNORMAL) CBC (12/23/2024 12:31 PM EDT) [facility] White Blood Count 6.2 4.8 - 10.8 X10*3/uL [facility] Red Blood Count 4.37 4.20 - 5.50 X10*6/uL [facility] Hemoglobin 11.4(L) 12.0 - 16.0 g/dl [facility] Hematocrit 35.0(L) 37.0 - 47.0 % [facility] Mean Corpuscular Volume 80.1 80.0 - 98.0 fL [facility] Mean Corpuscular Hemoglobin 26.1(L) 27.0 - 33.0 pg [facility] Mean Corpuscular HGB Conc 32.6 31.0 - 35.0 g/dl [facility] Red Cell Distribution Width 16.4(H) 11.0 - 16.0 % [facility] Platelet Count 268 160 - 400 X10*3/uL [facility] Mean Platelet Volume 10.4 9.4 - 12.3 fL [facility] NRBC Pct Auto 0.0 0.0 - 0.2 /100WBC [facility] NRBC Abs Auto 0.000 0.0 - 0.012 X10*3/uL [facility] 12/23/2024 12:3 1 PM EDT 12/23/2024 12:35 PM EDT Generic External Data Provider LAB BLOOD ORDERAB LES Final Result [facility] [address] [place] [phone] * Pap Smear (11/15/2020) Pap Negative for intraephithelial lesion or malignancy Negative for intraephithelial lesion or malignancy, Other HPV Undetected Undetected, Indeterminate, Quantitative, Not Detected Historical Provider HEALTH MAINTENANCE Final Result from Last 3 Months or Most Recently Relevant to Health Maintenance Insurance [facility] C3 DENTAL-[facility] MEDICAID STAND ADULT * Guarantor: Beatriz Espinoza Account Type Relation to Patient Date of Phone Billing Address Personal/Family Self [address] [facility] [place] Care Teams Filler Shredder Machine Relationship Specialty Start Date End Date Mai Mcclain MD [address] [place] [phone] PCP - General Family Medicine 02/09/22
--- OUTSIDE RECORDS SUMMARY | 2025-01-13 14:09 | XMS_ITS | Encounter Summary ---
Author Organization [employer] Address [address] [facility] 7t [place] [address] Care Team Providers Care Continuous Drier Helper Name Role Phone Mai Mcclain MD Primary Care Provider [phone] Encounter Details Date Type Department Care Team (Late st Contact Info) Description 07/20/2024 Orders Only [facility] [address] [place] [address] Gregor Mack MD [address] [place], [place] [phone] Normocytic anemia (Primary Dx) Social History Tobacco [...] documented as of this encounter Care Teams Continuous Drier Helper Relationship Specialty Start Date End Date Mai Mcclain MD [address] [place] [address] PCP - General Family Medicine 02/09/22 documented as of this encounter
--- OUTSIDE RECORDS SUMMARY | 2025-01-13 14:09 | XMS_ITS | Encounter Summary ---
Author Organization [employer] Address [address] [facility] 7t [place] [address] Care Team Providers Care Barman Name Role Phone Mai Mcclain MD Primary Care Provider [phone] Reason for Visit * Reason Onset Date Comments Nurse Triage 01/08/2025 Encounter Details Date Type Department Care Team ([facility] st Contact Info) Description 01/08/2025 Telephone [facility] [address] [place], [place] [phone] Mai Mcclain MD [address] [place] [address] Nurse Triage Social History Tobacco Use Types [...] encounter Miscellaneous Notes * Telephone Encounter - Traci Alberto LPN - 01/08/2025 2:23 PM EDT Triage call to patient who reports headaches for 3 weeks. Pain is near constant daily and lessens with motrin 800mg but comes back after about 6 hours. Patient has taken BP 121/64 no numbness of faceor tongue no weakness of extremities. Has slight nausea with PARRA but no vomiting or light sensitive at time of call. Disposition reviewed and patient in agreement with plan ASK/[facility]/ Dr Kendall as second slot utilized Used: Headache (Adult) Protocol-Based Disposition: See in Office or Video Visit Today or Tomorrow Video visit not offered Positive Triage Question: * Moderate headache (e.g., interferes with normal activities) present > 24 hours and unexplained * All higher-acuity triage questions were negative Care Advice Discussed: * Pain Medicine for Migraine * Pain Medicines * Rest for Migraine Headache * Reasons To Call Back - Severe headache lasts over 2 hours after pain medicine - Headache lasts over 72 hours - You become worse per protocal. * Telephone Encounter - Camila Davies - 01/08/2025 1:35 PM EDT Symptom: Headache Outcome: Schedule an urgent appointment (within 4 hours) or talk to a nurse or provider soon Reason: Getting worse The caller accepted this outcome. Contact pt at [phone] documented in this encounter Plan of Treatment Not on file documented as of this encounter Visit Diagnoses Not on filedocumented in this encounter Additional Health Concerns Assessment Noted Time PHQ-9 Depression Total Score: 0 10/30/19 10:59 AM EDT documented as of this encounter Care Teams Barman Relationship Specialty Start Date End Date Mai Mcclain MD [address] [place] [phone] PCP - General Family Medicine 02/09/22 documented as of this encounter
--- OUTSIDE RECORDS SUMMARY | 2025-01-13 14:09 | XMS_ITS | Encounter Summary ---
Author Organization [employer] Address [address] [place] [address] 7t [place] [address] Care Team Providers Care Material Handler Name Role Phone Mai Mcclain MD Primary Care Provider [phone] Reason for Visit * Reason Comments Med Refill Encounter Details Date Type Department Care Team ([facility] st Contact Info) Description 11/08/2022 Refill [facility]EDS [address] [place], [place] [phone] Mai Mcclain MD [address] [place] [address] Social History Tobacco Use Types Packs/Day Years [...] documented as of this encounter Care Teams Material Handler Relationship Specialty Start Date End Date Mai Mcclain MD [address] [place] [phone] PCP - General Family Medicine 02/09/22 documented as of this encounter
--- OUTSIDE RECORDS SUMMARY | 2025-01-13 14:09 | XMS_ITS | Encounter Summary ---
Author Organization [employer] Address [address] [facility] 7t [place] [address] Care Team Providers Care Cocktail Waitress Name Role Phone Mai Mcclain MD Primary Care Provider [phone] Encounter Details Date Type Department Care Team (Late st Contact Info) Description 04/17/2023 Abstract [facility] [address] [place] [address] Sarah Chung Social History Tobacco Use Types [...] documented as of this encounter Care Teams Cocktail Waitress Relationship Specialty Start Date End Date Mai Mcclain MD [address] [place] [address] PCP - General Family Medicine 02/09/22 documented as of this encounter
== END 2025-01-13 13:33 | disposition home or self-care (01) ==
PROVIDERS: PCP Family Medicine; Visit Provider Obstetrics & Gynecology
DX: N93.0 Postcoital and contact bleeding (principal)
CPT/HCPCS: 99213

== ENCOUNTER → 2025-01-13 13:19 | Outpatient (BNVA) | payer MEDICAID, SELFPAY | PROVIDERS: PCP Family Medicine; Visit Provider Obstetrics & Gynecology | DX: N93.0 Postcoital and contact bleeding (principal) | CPT/HCPCS: 99212 ==

== ENCOUNTER 2025-04-29 15:09 | Outpatient (AMB) | payer MEDICAID, SELFPAY ==
[2025-04-29 15:16] VITALS: BP 118/74; BMI 26.0
--- NOTE | 2025-04-29 15:16 | A.OFFVIS_ITS ---
Vital Signs 04/29/25 15:16 Height 5 ft Weight 133 lb BMI 26.0 BP 118/74 Intake Visit Reasons: ? pre op hysteroscopy Magisterial District Judge Required: No Information Interpreted: non-clinical & clinical Accompanied by: Self / Same As Patient Allergies oxycodone (From Percocet) Allergy (Mild, Verified 04/29/25 15:17) Stomach Upset bee pollen (bee stings) Adverse Reaction (Verified 04/29/25 15:17) Shortness of Breath HPI Comments Details: Presenting for EMB/ECC, the patient requesting hysteroscopy D&C possible polypectomy instead of endometrial biopsy PFSH Medical History Subcutaneous nodule Sjogren's disease Fibromyalgia Surgical History H/O tubal ligation Hx of cosmetic surgery Hx of section Family History Paternal Aunt Breast cancer Sister Multiple organ failure with heart failure Social History Alcohol intake: current Alcohol intake frequency: holidays/special occasions only Patient Tobacco Use Status: Never used Tobacco Gender identity: Female Female Reproductive History Menstrual Age of Menarche: 14 Physical Exam Vital Signs: Last Vital Signs BP 118/74 04/29/25 15:16 BMI result Body Mass Index 26.0 Assessment & Plan Assessment & Plan (1) Postcoital bleeding: Code(s): N93.0 - Postcoital and contact bleeding Category: Medical Plan: Proceed with hysteroscopy D&C polypectomy myomectomy with ECC Discussed with the patient the procedure , all benefits and risks including but not limited to inability to complete the procedure , insufficient endometrial tissue for a complete evaluation of the endometrial cavity , bleeding, infection, possible need for blood transfusion with all its risk ( HIV,syphilis, Hepatitis, anaphylaxis shock, others..), injury to bladder, rectum, possible need for laparoscopy/laparotomy or hysterectomy. The patient verbalized understanding and signed the consent. Instructions given the patient to stay NPO after midnight the day prior to the procedure and to take only the specific medication (s) discussed the morning of the surgical procedure and to schedule a 2 week postoperative appointment Coding Level of Care Code Est Pt Level 3 (80602) Diagnoses Postcoital bleeding N93.0
--- OUTSIDE RECORDS SUMMARY | 2025-04-29 22:41 | XMS_ITS | Encounter Summary ---
Author Organization [employer] Address 75 [facility] 7t [place] [address] Care Team Providers Care Police Service Technician Name Role Phone Mai Mcclain MD Primary Care Provider [phone] Encounter Details Date Type Department Care Team (Late st Contact Info) Description 07/20/2024 Orders Only [facility] [address] [place] [address] Gregor Mack MD [address] [place], [place] [phone] Normocytic anemia (Primary Dx) Social History Tobacco [...] documented as of this encounter Care Teams Police Service Technician Relationship Specialty Start Date End Date Mai Mcclain MD [address] [place] [address] PCP - General Family Medicine 02/09/22 documented as of this encounter
--- OUTSIDE RECORDS SUMMARY | 2025-04-29 22:42 | XMS_ITS | Encounter Summary ---
Author Organization [employer] Address [address] [facility] [address] [place] [address] Care Team Providers Care Inspectors And Regulatory Officers Name Role Phone Mai Mcclain MD Primary Care Provider [phone] Reason for Visit * Reason Comments Med Refill Encounter Details Date Type Department Care Team (Late st Contact Info) Description 02/21/2024 Refill [facility] [address] [place] [address] Destiny Vu MD [address] [place], [place] [phone] Social History Tobacco Use Types Packs/Day Years [...] documented as of this encounter Care Teams Inspectors And Regulatory Officers Relationship Specialty Start Date End Date Mai Mcclain MD [address] [place] [address] PCP - General Family Medicine 02/09/22 documented as of this encounter
--- OUTSIDE RECORDS SUMMARY | 2025-04-29 22:42 | XMS_ITS | Clinical Summary ---
Author Organization [employer] Address [address] [facility] [address] [place] [address] Care Team Providers Care Split Leather Mosser Name Role Phone Mai Mcclain MD Primary Care Provider [phone] Allergies Active Allergy Reactions Criticality Noted Date [...] times daily. 30 tablet 1 05/11/20 24 2024 Active Diclofenac Sodium 1 % gel Apply 2 g topically if needed in the morning, at noon, in the evening, and at bedtime (pain). 150 g 3 05/11/20 24 Active Spacer/Aero-Holdi ng Chambers (OptiChamber Liyah) misc 1 each every 4 (four) hours if needed (asthma). 1 each 06/23/19 25 Active polyethylene glycol, PEG, 3350 (Glycolax) 17 GM/SCOOP powderIndications :Other constipation DISSOLVE 17 GRAMS IN 8 OZ OF FLUID LIQUID DRINK DAILY DIRECTED 238 g 07/23/19 25 Active albuterol (Ventolin HFA) 108 (90 Base) MCG/ACT inhaler INHALE 2 PUFFS EVERY 4 (FOUR) HOURS IF NEEDED FOR WHEEZING OR SHORTNESS OF BREATH. 18 g 3 08/26/19 25 Active Dextromethorphan- guaiFENesin (Mucinex DM) 30-600 MG tablet sustained-release 12 hour Use 1 tab TID 28 tablet 08/25/19 25 Active ferrous sulfate 325 (65 Fe) MG EC tabletIndications :Normocytic anemia TAKE 1 TABLET BY MOUTH WITH BREAKFAST. DO NOT CRUSH, CHEW OR SPLIT. 90 tablet 1 10/22/19 25 Active ibuprofen 800 MG tabletIndications :Acute nonintractable headache, unspecified headache type Take 1 tablet (800 mg) by mouth 3 times daily. 90 tablet 04/06/20 25 2024 Active acetaminophen (Tylenol Extra Strength) 500 MG tabletIndications :Acute nonintractable headache, unspecified headache type Take 1 tablet (500 mg) by mouth every 6 (six) hours if needed for mild pain or headaches for up to 10 days. 30 tablet 04/06/20 25 2024 Active Problems Problem Noted Date Diagnosed Date [...] Encounters Date Type Department Care Team Description 04/06/2025 6:40 PM EST Office Visit [facility] [address] [place] [address] Geetha Mar CNP Acute nonintractable headache, unspecified headache type (Primary Dx); Influenza-like illness 04/06/2025 Travel 04/06/2025 Telephone [facility] [address] [place] [address] Mai Mcclain MD Nurse Triage from Last 3 Months Immunizations Immunization Administration [...] Sign Reading Time Taken Comments Blood Pressure 101/65 04/06/2025 6:14 PM EST Pulse 69 04/06/2025 6:14 PM EST Temperature 37 C (98.6 F) 04/06/2025 6:14 PM EST Respiratory Rate 18 04/06/2025 6:14 PM EST Oxygen Saturation 96% 04/06/2025 6:14 PM EST Inhaled Oxygen Concentration - - Weight 61.7 kg (136 lb) 04/06/2025 6:14 PM EST Height 157.5 cm (5' 2 ) 04/06/2025 6:14 PM EST Body Mass Index 24.87 04/06/2025 6:14 PM EST Plan of Treatment Health Maintenance Due Date Last Done Comments Dental Prophylaxis 1986 Disability Screening 1986 Family Planning (PISQ) 2001 HPV Vaccines (1 - 3-dose series) 2001 Hepatitis B Vaccines (1 of 3 - 19+ 3-dose series) 2005 Dental Oral Exam 01/14/2023 07/16/2022 Dental X-Ray: Bitewings 07/17/2023 07/16/2022 COVID-19 Vaccine ( - season) 2025 02/22/2021, 02/01/2021 Influenza Vaccine (#1) 2025 SDOH Screening 04/30/2025 04/30/2024 Alcohol/Substance Use Screening 05/11/2025 05/11/2024 Depression Screening 05/11/2025 05/11/2024, 10/30/19 Dental X-Ray: Full Mouth 07/17/2025 07/16/2022 Cervical Cancer Screening 11/15/2025 HPV/Cotest 11/15/2025 11/15/2020 Pap Smear 11/15/2025 11/15/2020 Tobacco Screening 04/06/2026 04/06/2025 DTaP/Tdap/Td Vaccines (6 - Td or Tdap) [...] INFLUENZA A (ID NOW RAPID MOLECULAR) Routine 04/06/2025 6:38 PM EST Acute nonintractable headache, unspecified headache type POCT INFLUENZA B (ID NOW RAPID MOLECULAR) Routine 04/06/2025 6:37 PM EST Acute nonintractable headache, unspecified headache type POCT RAPID COVID ANTIGEN Routine 04/06/2025 6:36 PM EST Acute nonintractable headache, unspecified headache type HEPATITIS C ANTIBODY Routine 12/23/2024 12:31 PM EDT HIV 1/2 ANTIGEN/ANTIBODY, FOURTH GENERATION W/RFL Routine 12/23/2024 12:31 PM EDT INTRAORAL - COMPLETE SERIES OF RADIOGRAPHIC IMAGES Routine 07/16/2022 8:00 AM EST COMPREHENSIVE ORAL EVALUATION - NEW OR ESTABLISHED PATIENT Routine 07/16/2022 8:00 AM EST HM PAP/HPV Routine 11/15/2020 from Last 3 Months or Most Recently Relevant to Health Maintenance Results * POCT Rapid Influenza A TALLEY ID NOW (04/06/2025 6:38 PM EST) Influenza A Negative Negative, Indeterminate [facility] QC Media Lot # [id number] [facility] Lot# Expiration Date 12, [facility] Swab 04/06/2025 6:38 PM EST Result [facility] POINT OF CARE TEST ENTER/ EDIT ORDERABLES Final Result Performing Organization Address [place] Co de Phone Number [facility] [address] [place] [phone] * POCT Rapid Influenza B TALLEY ID NOW (04/06/2025 6:37 PM EST) [facility] Influenza B Negative Negative, Indeterminate [facility] QC Media Lot # [id number] [facility] Lot# Expiration Date [facility] Swab 04/06/2025 6:37 PM EST Result [facility] POINT OF CARE TEST ENTER/ EDIT ORDERABLES Final Result Performing Organization Address [place] de Phone Number [facility] [address] [place] [phone] * POCT Rapid Covid-19 BinaxNOW (04/06/2025 6:36 PM EST) [facility] Rapid COVID Ag Negative QC Media Lot # [id number] Lot# Expiration Date Swab 04/06/2025 6:36 PM EST Result [facility] POINT OF CARE TEST ENTER/ EDIT ORDERABLES Final Result * Hepatitis C Ab (12/23/2024 12:31 PM EDT) Pathologist [facility] Hepatitis C Antibody Nonreactive Nonreactive [facility] Comment:Antibodies to HCV no t detected; does not exclude early acuteHCV infection. 12/23/2024 12:3 1 PM EDT 12/23/2024 12:[address] [facility] Generic External Data Provider LAB BLOOD ORDERAB LES Final Result Performing Organization Address [place] Co de Phone Number [facility] [address] [place] [address] [phone] * HIV-1/2 Antigen and Antibodies, Fourth Generation, with Reflexes (12/23/2024 12:31 PM EDT) HIV AB/AG Nonreactive Nonreactive [facility] Comment:HIV-1 p24 Ag and/or HIV-1/HIV-2 Ab not detected.A test result that is nonreactive does not exclude thepossibility of exposure to or infection with HIV-1 and/orHIV-2. Nonreactive results in this assay for individualswith prior exposure to HIV-1 and/or HIV-2 may be due toantigen and antibody levels that are below the limit ofdetection of this assay.The [employer] HIV Ag/Ab Combo assay result andsupplemental assay results should be interpreted inconjunction with the patient's clinical presentation,history and other laboratory results. If the results areinconsistent with clinical evidence, additional testing issuggested to confirm the result. 12/23/2024 12:3 1 PM EDT 12/23/2024 12:35 PM EDT Generic External Data Provider LAB BLOOD ORDERAB LES Final Result Performing Organization Address [facility] Co de Phone Number [facility] [address] [place] [address] [phone] * Pap Smear (11/15/2020) Pap Negative for intraephithelial lesion or malignancy Negative for intraephithelial lesion or malignancy, Other HPV Undetected Undetected, Indeterminate, Quantitative, Not Detected Historical Provider HEALTH MAINTENANCE Final Result from Last 3 Months or Most Recently Relevant to Health Maintenance Insurance [facility] C3 DENTAL-[facility] MEDICAID STAND ADULT Care Teams Split Leather Mosser Relationship Specialty Start Date End Date Mai Mcclain MD [address] [place] [phone] PCP - General Family Medicine 02/09/22
--- OUTSIDE RECORDS SUMMARY | 2025-04-29 22:42 | XMS_ITS | Encounter Summary ---
Author Organization [employer] Address [address] [facility] [address] [place] [address] Care Team Providers Care Market Intelligence Consultant Name Role Phone Mai Mcclain MD Primary Care Provider Encounter Details Date Type Department Care Team (Late st Contact Info) Description 04/17/2023 Abstract [facility] [address] [place] [address] Sarah Chung Social History Tobacco Use Types [...] documented as of this encounter Care Teams Market Intelligence Consultant Relationship Specialty Start Date End Date Mai Mcclain MD [address] [place] [address] PCP - General Family Medicine 02/09/22 documented as of this encounter
--- OUTSIDE RECORDS SUMMARY | 2025-04-29 22:42 | XMS_ITS | Encounter Summary ---
Author Organization [employer] Address [address] [place] [address] [address] [place] [address] Care Team Providers Care Pulp Piler Name Role Phone Mai Mcclain MD Primary Care Provider [phone] Reason for Visit * Reason Comments Med Refill Encounter Details Date Type Department Care Team ([facility] st Contact Info) Description 11/08/2022 Refill [facility] [address] [place], [place] [phone] Mai Mcclain MD [address] [place] [address] Social History Tobacco Use Types Packs/Day Years [...] documented as of this encounter Care Teams Pulp Piler Relationship Specialty Start Date End Date Mai Mcclain MD [address] [place] [phone] PCP - General Family Medicine 02/09/22 documented as of this encounter
== END 2025-04-29 15:29 | disposition home or self-care (01) ==
LOC: HO.HWS 15:10
PROVIDERS: PCP Family Medicine; Visit Provider Obstetrics & Gynecology
DX: N93.0 Postcoital and contact bleeding (principal)
CPT/HCPCS: 99213

== ENCOUNTER → 2025-04-29 15:09 | Outpatient (BNVA) | payer MEDICAID, SELFPAY | PROVIDERS: PCP Family Medicine; Visit Provider Obstetrics & Gynecology | DX: N93.0 Postcoital and contact bleeding (principal) | CPT/HCPCS: 99212 ==

== ENCOUNTER 2025-05-03 11:28 | Day surgery (SDC) | payer MEDICAID, SELFPAY ==
[2025-05-03] VITALS (11 sets, daily range): BP systolic 93–112; BP diastolic 56–69; PULSE 50–72; RESP 12–23; TEMP 36.3–36.9; O2SAT 95–98; BMI 25.9
--- NOTE | 2025-05-03 11:19 | P.CONAN_ITS ---
Documented by User: Winifred Andrew NP 05/03/25 11:19 HPI - Anesthesia Eval Consult details Narrative: 39 yr old female for ?D&C Hysteroscopy,possible polypectomy,possible myomectomy PMFSH Active Problems Active Problems: All Active Problems (Updated 12/23/24 @ 12:18 by Robin Geurra MD) Postcoital bleeding (Acute) Mass of left lower leg (Acute) Urinary tract infection (Acute) Encounter for screening examination for sexually transmitted disease (Acute) Bacterial vaginosis (Acute) Hx of section (Acute) Vaginal dryness (Acute) Subcutaneous nodule (Acute) Varicose veins of left lower extremity with inflammation (Acute) Varicose veins of right lower extremity with inflammation (Acute) Screen for sexually transmitted diseases (Acute) Breast cancer screening (Acute) Cervical cancer screening (Acute) Well woman exam with routine gynecological exam (Acute) Past Medical History Medical History Subcutaneous nodule Sjogren's disease Fibromyalgia Family History Family History Paternal Aunt Breast cancer Sister Multiple organ failure with heart failure Surgical History Surgical History H/O tubal ligation Hx of cosmetic surgery Hx of section Social History Social History Alcohol intake: current Alcohol intake frequency: holidays/special occasions only Patient Tobacco Use Status: Never used Tobacco Use of substances other than those prescribed or required for medical reasons: No Advance Directives: No Advance Directives Information Provided: Yes Gender identity: Female Meds Allergies Allergy/AdvReac Type Severity Reaction Status Date / Time oxycodone (From Percocet) Allergy Mild Stomach Verified 04/29/25 15:17 Upset bee pollen (bee stings) AdvReac Shortness Verified 04/29/25 15:17 of Breath Home Medications ?Medication ?Instructions ?Recorded ?Confirmed ?Last Taken ?Type No Known Home Meds 04/29/25 Unknown Hi story Documented by User: Robert Espitia MD 05/03/25 12:10 PMFSH Past Medical History Medical History Subcutaneous nodule Sjogren's disease Fibromyalgia Family History Family History Paternal Aunt Breast cancer Sister Multiple organ failure with heart failure Family history of problems with anesthesia: No Surgical History Surgical History H/O tubal ligation Hx of cosmetic surgery Hx of section History of Problems with Anesthesia: No Social History Social History Alcohol intake: current Alcohol intake frequency: holidays/special occasions only Patient Tobacco Use Status: Never used Tobacco Use of substances other than those prescribed or required for medical reasons: No Advance Directives: No Advance Directives Information Provided: Yes Gender identity: Female Meds Allergies Allergy/AdvReac Type Severity Reaction Status Date / Time oxycodone (From Percocet) Allergy Mild Stomach Verified 04/29/25 15:17 Upset bee pollen (bee stings) AdvReac Shortness Verified 04/29/25 15:17 of Breath Home Medications ?Medication ?Instructions ?Recorded ?Confirmed ?Last Taken ?Type No Known Home Meds 04/29/25 Unknown Hi story Exam Exam Date and Time: 05/03/25 Airway Mallampati Class: II TM Dist: >3cm Neck ROM: Full Heart: rrr Lungs: ctab vesicular Assessment and Plan Assessment Anesthesia Assessment: Anesthesia Plan Discussed and Chart Reviewed Final Anesthetic Review Family History of Problems with Anesthesia: No History of Problems with Anesthesia: No NPO: Yes ASA Class: II Final Preanesthetic Review: No Changes in Pt Med Stat, Meds/Allgs Chart Reviewed, Consent Obtained/Reviewed and Anes Risks/Benef Reviewed Patient Risk: Low Procedure Risk: Low Anesthetic Plan Anesthetic Plan: GA Disposition: Standard PACU
[2025-05-03] MEDS: Lactated Ringers 1,000 ML 100 ML IVCONT (11:55)
--- NOTE | 2025-05-03 12:47 | MHC.SHP ---
Pre-Procedural Eval Section A - 24 Hr Update-Section A only Date of Service: 05/03/25 The patient is an INPATIENT: No Changes since office visit: No Cold of Flu in the past 2 weeks, No New Medical Problems, No Changes in Medication and No Patient answered all questions The patient has been examined within 24 hours of the surgical procedure. The History & Physical has been completed within 30 days and I have reviewed it.: Yes Section B - Complete if H&P > 30 days Chief Complaint: Postcoital and contact bleeding Allergies: Allergies Allergy/AdvReac Type Severity Reaction Status Date / Time oxycodone (From Percocet) Allergy Mild Stomach Verified 04/29/25 15:17 Upset bee pollen (bee stings) AdvReac Shortness Verified 04/29/25 15:17 of Breath Plan Diagnosis/Plan: Unchanged I have reviewed the history and physical and performed a pertinent physical examination on my patient. No changes have occurred unless specified. Time Spent With Patient Time: Total time managing care of this patient today ____ minutes.
--- NOTE | 2025-05-03 13:30 | PM.OP ---
Brief Operative Note Date of Service: 05/03/25 Pre-op diagnosis: AUB Post-op diagnosis: same (Endometrial polyp) Procedure: Hysteroscopy D&C, Polypectomy Surgeon: Robin Guerra MD Anesthesia: GLMA Was an Real Estate Loan Officer used for this Procedure?: No Estimated blood loss (mL): 0 Pathology: other (Endometrial Scrapping. Polyp) Condition: stable Disposition: PACU
--- NOTE | 2025-05-03 13:30 | W.PM.OPN ---
Operative Note Operative Note Date of Service: 05/03/25 Narrative: Preop Diagnosis: AUB Operation: Diagnostic Hysteroscopy, Dilataion & Curettage and polypectomy Post Op Diagnosis: Endometrial Polyp QBL: Minimal Anesthesia: GLMA Surgeon: Robin Guerra MD Guard Dance Hall: None Complication: None Pathology: Endometrial Scrapings, Endometrial polyp Procedure: The patient was put in the dorsal lithotomy position, scrubbed, and draped in the usual manner. A sterile speculum was inserted in the patient's vagina. The anterior lip of the cervix was grasped with a single tooth tenaculum. The cervix was dilated up to 5 mm, then the scope was inserted in the patient's uterus. Inspection revealed endometrial polyp. The Myosure Reach device was used; it was introduced through the operative channel and polypectomy done with no complications. The scope was then taken out from the uterine cavity, sharp curettings was carried on with minimal to moderate amount of tissues retrieved. At the end of the procedure, all instruments were taken out of the patient uterine and vaginal cavity. The single tooth tenaculum was removed and homeostasis was assured using pressure,. The patient tolerated the procedure well and was transferred to the PACU in a stable condition.
== END 2025-05-03 14:59 | disposition home or self-care (01) ==
PROVIDERS: PCP Family Medicine; Visit Provider Obstetrics & Gynecology
PROC: 0UDB8ZZ Extraction of Endometrium, Via Natural or Artificial Opening Endoscopic (ICD-10-PCS; CPT 58558; principal; 2025-05-03 13:00)
DX: N93.0 Postcoital and contact bleeding (principal); N84.0 Polyp of corpus uteri; M35.00 Sjogren syndrome, unspecified; M79.7 Fibromyalgia; R22.9 Localized swelling, mass and lump, unspecified; Z88.5 Allergy status to narcotic agent; Z98.51 Tubal ligation status
CPT/HCPCS: 58558; 36415; 84702; 88305; J0131; J1100; J1171; J1885; J2003; J2250; J2371; J2704; J3010

== ENCOUNTER → 2025-05-03 11:28 | Outpatient (BNV) | payer MEDICAID, SELFPAY | PROVIDERS: PCP Family Medicine; Visit Provider Obstetrics & Gynecology | DX: N93.9 Abnormal uterine and vaginal bleeding, unspecified (principal); N84.0 Polyp of corpus uteri | CPT/HCPCS: 58558 ==

== ENCOUNTER 2025-05-18 09:58 | Outpatient (AMB) | payer MEDICAID, SELFPAY ==
--- NOTE | 2025-05-18 09:59 | MHC.OFFVIS ---
Intake Visit Reasons: post op Commercial Property Manager Required: No Information Interpreted: non-clinical & clinical Allergies oxycodone (From Percocet) Allergy (Mild, Verified 05/18/25 09:59) Stomach Upset bee pollen (bee stings) Adverse Reaction (Verified 05/18/25 09:59) Shortness of Breath HPI Comments Details: The patient scheduled a telehealth visit post hysteroscopy D&C no complaints minimal vaginal bleeding no feverishness chills or abdominal pain. The pathology showed the following: A. Endometrium, polypectomy: Fragments of endometrial polyp; no atypia identified. B. Endometrium, curettage: Proliferative endometrium; no atypia identified The workup for post coital bleeding done include the following H&H 11.4/35 TSH within normal GC/CT negative BV panel positive, the patient is started on metronidazole yesterday Last co testing in 2023 was negative Pelvic ultrasound showed the following: Uterus: The uterus is mildly enlarged, measuring 12.2 x 4.8 x 5.7 cm. Myometrium has a normal echotexture. No fibroids are identified. Endometrium: The endometrial stripe measures 11 mm in thickness. There is a nabothian cyst in the cervix. Right ovary: The right ovary measures 1.8 x 2.0 x 2.5 cm. The right ovary is normal in size and echotexture. Left ovary: The left ovary measures 2.4 x 2.7 x 2.0 cm. The left ovary is normal in size and echotexture. Pelvic fluid: none. PFSH Medical History Subcutaneous nodule Sjogren's disease Fibromyalgia Surgical History H/O tubal ligation Hx of cosmetic surgery Hx of section Family History Paternal Aunt Breast cancer Sister Multiple organ failure with heart failure Social History Alcohol intake: current Alcohol intake frequency: holidays/special occasions only Patient Tobacco Use Status: Never used Tobacco Gender identity: Female Female Reproductive History Menstrual Age of Menarche: 14 Review of Systems Const All systems reviewed & are unremarkable except as noted in HPI and below Reports as per HPI and Reports no additional complaints GI Reports no additional complaints Reports no additional complaints Telehealth Telehealth Telehealth Platform: [facility] Location of provider rendering services: practice address Location of patient: address on file Patient Identification confirmed using: Name, : Yes Telehealth method: video Patient verbally consented to treatment: Yes Patient verbally consented to billing insurance company: Yes Patient informed of any privacy concerns related to visit: Yes Minutes spent on Phone/Video with Pt.: 3 Assessment & Plan Assessment & Plan (1) Postcoital bleeding: Comment: Status post hysteroscopy polypectomy Code(s): N93.0 - Postcoital and contact bleeding Category: Medical Plan: Discussed with the patient the intraoperative findings, endometrial polyp and pathology results addition to the results of the work up done and options of treatment including Mirena IUD, expectant management. All pros, cons, risks and benefits if each option was discussed with the patient and the patient decided to proceed with expectant management. Instructions given to patient to call in case symptoms not improve. All questions answered the patient verbalized understanding. I spent a total of 20 minutes reviewing the chart, talking to the patient via video and documenting in the medical record. Coding Level of Care Code Tele Est Pt Level 3 (36877) Diagnoses Postcoital bleeding N93.0
--- OUTSIDE RECORDS SUMMARY | 2025-05-18 13:02 | XMS_ITS | Clinical Summary ---
Author Organization [employer] Address [address] [facility] 7[address] [place] [address] Care Team Providers Care Rear Admiral Name Role Phone Mai Mcclain MD Primary Care Provider [phone] Allergies Active Allergy Reactions Criticality Noted Date [...] daily. 90 tablet 1 01/24/20 23 Active Diclofenac Sodium 1 % gel Apply 2 g topically if needed in the morning, at noon, in the evening, and at bedtime (pain). 150 g 3 05/11/20 24 Active Spacer/Aero-Holdi ng Chambers (OptiChamber Lyiah) misc 1 each every 4 (four) hours [...] SPLIT. 90 tablet 1 10/22/19 25 Active naproxen (Naprosyn) 500 MG tablet Take 1 tablet (500 mg) by mouth 2 times daily. 30 tablet 1 05/11/20 24 2024 ibuprofen 800 MG tabletIndications :Acute nonintractable headache, unspecified headache type Take 1 tablet (800 mg) by mouth 3 times daily. 90 tablet 04/06/20 25 2024 Active Problems Problem [...] Encounters Date Type Department Care Team Description 05/03/2025 Orders Only GENERIC EXTERNAL DATA DEPARTMENT Provider, Generic External Data 04/06/2025 6:40 PM EST Office Visit [facility] [address] [place] [phone] Geetha Mar CNP Acute nonintractable headache, unspecified headache type (Primary Dx); Influenza-like illness 04/06/2025 Travel 04/06/2025 Telephone [facility] [address] [place] [address] Mai Mcclain MD Nurse Triage from Last [...] Comments Dental Prophylaxis 1985 Disability Screening 1985 Alcohol/Substance Use Screening 1998 Family Planning (PISQ) 2001 HPV Vaccines (1 - 3-dose series) 2001 Hepatitis B Vaccines (1 of 3 - 19+ 3-dose series) 2005 Dental Oral Exam 01/14/2023 07/16/2022 Dental X-Ray: Bitewings 07/17/2023 07/16/2022 COVID-19 Vaccine ( season) 2025 02/22/2021, 02/01/2021 Influenza Vaccine (#1) 2025 SDOH Screening 04/30/2025 04/30/2024 Depression Screening 05/11/2025 05/11/2024, 10/30/19 Dental X-Ray: [...] Procedure Name Priority Date/Time Associated Diagnosis Comments HEMATOXYLIN AND EOSIN STAIN Routine 05/03/2025 1:22 PM EST HCG, TOTAL, QN Routine 05/03/2025 11:52 AM EST POCT INFLUENZA A (ID NOW RAPID MOLECULAR) [...] Recently Relevant to Health Maintenance Results * Hematoxylin and Eosin Stain (05/03/2025 1:22 PM EST) 05/03/2025 1:22 PM EST 05/03/2025 2:50 PM EST Narrative [facility] - 05/05/2025 9:06 AM EST ----- ------- Name: Beatriz Espinoza Age/Sex: 39/F [facility] 1985 [id number] [id number] Attend Dr: Robin Guerra MD Re05/03/25 Status: [facility] Disch: ----- ------- SPEC : [id number] RECD: 05/03/25-1450 STATUS: MAURYKenia JOSEPH NUM: [id number] GERMAN: 05/03/25-[address] [facility] [address]: Robin Guerra MD ENTERED: 05/03/25-2954 SP TYPE: Surgical OTHR DR: Mai Mcclain MD ORDERED: HE Stain/4, Gross Micro L4/2 Diagnosis A. Endometrium, polypectomy: Fragments of endometrial polyp; no atypia identified. B. Endometrium, curettage: Proliferative endometrium; no atypia identified. Clinical History Pre-Op Dx: Postcoital and contact bleeding Post-Op Dx: Endometrial polyp Microscopic Description Microscopic sections reviewed. Material Received A. Endometrial polyp B. [facility] Gross Description Received in 2 parts. A. Received in formalin, in a cloth filtration device, labeled endometrial polyp are fragments of pink-magana, rubbery tissue ranging from 0.4-1.2 cm in greatest dimension, forming an aggregate measuring 4.5 x 3.9 x 0.5 cm in greatest dimension which is wrapped in lens paper and entirely submitted for microscopic examination, multiple pieces in cassettes A1 through A3. B. Received in formalin, on Telfa, labeled EMC are fragments of red-pink soft tissue mixed with mucus and clotted blood forming an aggregate measuring 3.4 x 2.6 x 0.3 cm which is wrapped in lens paper and entirely submitted for microscopic examination, multiple pieces in cassettes B1 and B2. ([facility]) IHC S/NG Disclaimer NOTE: Unless otherwise stated, all tissue is formalin-fixed and paraffin-embedded. Some or all of the immunohistochemical tests reported herein may have been developed and their performance characteristics determined by [facility]. They have not been cleared or approved by the U.S. Food and Drug Administration (FDA). However, the FDA has determined that such clearance or approval is not necessary. This laboratory is certified under the Clinical Laboratory Improvement Amendments of 1988 (CLIA) as qualified to perform high complexity clinical laboratory testing. CONTINUED ON NEXT PAGE ----- ------- Name: Beatriz Espinoza Age/Sex: 39/F : 1985 Unit#: [id number] Attend Dr: Robin Guerra MD Re05/03/25 Status: [facility] Disch: ----- ------- SPEC : [id number] RECD: 05/03/25-2399 STATUS: PAYAL RUIZ NUM: [id number] GERMAN: 05/03/25-[address] [facility] [address]: Robin Guerra MD ENTERED: 05/03/25-4406 SP TYPE: Surgical OTHR DR: Mai Mcclain MD ORDERED: HE Stain/4, Gross Micro L4/2 Copies To: Mai Mcclain MD [facility] [address] [place] [address] Robin Guerra MD [facility] [address] [place] [address] Drive [address] [place] [address] ----- ------- Signed (signature on file) Jorgito Campos MD 05/05/25 0906 ----- ------- END OF REPORT us Generic External Data Provider LAB BLOOD ORDERAB LES Final Result [facility] [address] [place] [address] [phone] * hCG, Total, Quantitative (05/03/2025 11:52 AM EST) HCG Quantitative <2 mIU/mL [facility] Comment:Weeks post LMP Appro ximate hCG(Last Menstrual Period) Range (mIU/ml)3 - 4 weeks 9 - 1304 - 5 weeks 75 - 2,6005 - 6 weeks 850 - 20,8006 - 7 weeks 4000 - 100,2007 - 12 weeks 11,500 - 289,94106 - 16 weeks 18,300 - 137,13064 - 29 weeks (2nd trimester) 1,400 - 53,64018 - 41 weeks (3rd trimester) 940 - 60,000The Talley B- hCG assay is used for the early detection ofpregnancy; it cannot be used to diagnose any conditionunrelated to . If a B-hCG level is not supportedby the clinical evidence, results should be confirmed by analternative method (qualitative urine hCG, for example). 05/03/2025 11:5 2 AM EST 05/03/2025 11:58 AM EST Generic External Data Provider LAB BLOOD ORDERAB LES Final Result Performing Organization Address [facility] de Phone Number [facility] [address] [place] [phone] * POCT Rapid Influenza A TALLEY ID NOW (04/06/2025 6:38 PM EST) Influenza A Negative Negative, Indeterminate [facility] QC Media Lot # [id number] [facility] Lot# Expiration Date [facility] Swab 04/06/2025 6:38 PM EST [facility] POINT OF CARE TEST ENTER/ EDIT ORDERABLES Final Result Performing Organization Address [facility] de Phone Number [facility] [address] [place] [phone] * POCT Rapid Influenza B TALLEY ID NOW (04/06/2025 6:37 PM EST) Influenza B Negative Negative, Indeterminate [facility] QC Media Lot # [id number] [facility] Lot# Expiration Date [facility] Swab 04/06/2025 6:37 PM EST [facility] POINT OF CARE TEST ENTER/ EDIT ORDERABLES Final Result Performing Organization Address [facility] Co de Phone Number [facility] [address] [place] [address] [phone] * POCT Rapid Covid-19 BinaxNOW (04/06/2025 6:36 PM EST) [facility] Rapid COVID Ag Negative QC Media Lot # [id number] Lot# Expiration Date [id number] Swab 04/06/2025 6:36 PM EST [facility] POINT OF CARE TEST ENTER/ EDIT ORDERABLES Final Result * Hepatitis C Ab (12/23/2024 12:31 PM EDT) [facility] Hepatitis C Antibody Nonreactive Nonreactive [facility] Comment:Antibodies to HCV no t detected; does not exclude early acuteHCV infection. 12/23/2024 12:3 1 PM EDT 12/23/2024 12:35 PM EDT Generic External Data Provider LAB BLOOD ORDERAB LES Final Result [facility] [address] [place] [phone] * HIV-1/2 Antigen and Antibodies, Fourth Generation, with Reflexes (12/23/2024 12:31 PM EDT) [facility] HIV AB/AG Nonreactive Nonreactive [facility] Comment:HIV-1 p24 Ag and/or HIV-1/HIV-2 Ab not detected.A test result that is nonreactive does not exclude thepossibility of exposure to or infection with HIV-1 and/orHIV-2. Nonreactive results in this assay for individualswith prior exposure to HIV-1 and/or HIV-2 may be due toantigen and antibody levels that are below the limit ofdetection of this assay.The [employer] HIV Ag/Ab Combo assay result andsupplemental assay results should be interpreted inconjunction with the patient's clinical presentation,history and other laboratory results. If the results areinconsistent with clinical evidence, additional testing issuggested to confirm the result. 12/23/2024 12:3 1 PM EDT 12/23/2024 12:35 PM EDT Generic External Data Provider LAB BLOOD ORDERAB LES Final Result [facility] [address] [place] [address] [phone] * Pap Smear (11/15/2020) Pap Negative for intraephithelial lesion or malignancy Negative for intraephithelial lesion or malignancy, Other HPV Undetected Undetected, Indeterminate, Quantitative, Not Detected Historical Provider HEALTH MAINTENANCE Final Result from Last 3 Months or Most Recently Relevant to Health Maintenance Insurance [facility] [id number] DENTAL-[facility] MEDICAID STAND ADULT Care Teams Rear Admiral Relationship Specialty Start Date End Date Mai Mcclain MD [address] [place] [phone] PCP - General Family Medicine 02/09/22
--- OUTSIDE RECORDS SUMMARY | 2025-05-18 13:02 | XMS_ITS | Clinical Summary ---
Author Organization [address] [facility] Address [address] [place] [address] Phone Care Team Providers Care Legal Support Analyst Name Role Phone Beatriz Lara MD Primary Care Provider [phone] Encounters Date Type Department Care Team Description 03/04/2025 Telephone Vascular Surgery - [place] [address] [facility] [address] [place] [address] Trung Stafford MA from Last 3 Months Social History Tobacco Use Types Packs/Day Years Used Date Smoking Tobacco: Never Assessed Comments Unknown Sex and Gender Information Value Date Recorded Sex Assigned at Not on file Legal Sex Female 5:43 PM EST Gender Identity Not on file Sexual Orientation Not on file Plan of Treatment Health Maintenance Due Date Last Done Comments DTaP,Tdap,and Td Vaccines (1 - Tdap) 2005 Hepatitis B Vaccines (1 of 3 - 19+ 3-dose series) 2005 Cervical Cancer Screening: P ap Smear 08/28/2007 HPV Vaccines (1 - 3-dose SCD M series) 2013 Depression Screening 05/20/2024 COVID-19 Vaccine ( - 2024-2 6 season) 2025 Influenza Vaccine (#1) 2025 HIV Screening 03/04/2025 Hepatitis C Screening 03/04/2025 Medicare Annual Wellness Visit 03/04/2025 Social Influencers of Health Screening 03/04/2025 RSV Immunization Adult Patie nts (1 - 1-dose 75+ series) 2061 HIB Vaccines Aged Out No longer eligi ble based on patient's age to complete this topic Hepatitis A Vaccines Aged Out No long er eligible based on patient's age to complete this topic IPV Vaccines Aged Out No longer eligi ble based on patient's age to complete this topic MMR Vaccines Aged Out No longer eligi ble based on patient's age to complete this topic Meningococcal ACWY Vaccine Aged Out N o longer eligible based on patient's age to complete this topic Meningococcal B Vaccine Aged Out No l onger eligible based on patient's age to complete this topic Pneumococcal Vaccine: Pediat rics (0 to 5 Years) and At-Risk Patients (6 to 49 Years) Aged Out No longer eligible b ased on patient's age to complete this topic RSV Immunization Patients Un tobias 20 months Aged Out No longer eligible b ased on patient's age to complete this topic Varicella Vaccines Aged Out No longer eligible based on patient's age to complete this topic Insurance [employer] [id number] Care Teams Legal Support Analyst Relationship Specialty Start Date End Date Beatriz Lara MD PCP - General Internal Medicine 10/22/17
--- OUTSIDE RECORDS SUMMARY | 2025-05-18 13:02 | XMS_ITS | Encounter Summary ---
Author Organization [employer] Address [address] [facility] [address] [place] [address] Care Team Providers Care Professional Skateboarder Name Role Phone Mai Mcclain MD Primary Care Provider [phone] Encounter Details Date Type Department Care Team (Late st Contact Info) Description 07/20/2024 Orders Only [facility] [address] [place] [address] Gregor Mack MD [address] [place], [place] [phone] Normocytic anemia (Primary Dx) Social History Tobacco [...] documented as of this encounter Care Teams Professional Skateboarder Relationship Specialty Start Date End Date Mai Mcclani MD [address] [place] [address] PCP - General Family Medicine 02/09/22 documented as of this encounter
--- OUTSIDE RECORDS SUMMARY | 2025-05-18 13:02 | XMS_ITS | Encounter Summary ---
Author Organization [employer] Address [address] [facility] [address] [place] [address] Care Team Providers Care Patient Access Name Role Phone Mai Mcclain MD Primary Care Provider Encounter Details Date Type Department Care Team (Late st Contact Info) Description 04/17/2023 Abstract [facility] [address] [place] [address] Sarah Chung Social History Tobacco Use Types [...] documented as of this encounter Care Teams Patient Access Relationship Specialty Start Date End Date Mai Mcclain MD [address] [place] [address] PCP - General Family Medicine 02/09/22 documented as of this encounter
--- OUTSIDE RECORDS SUMMARY | 2025-05-18 13:02 | XMS_ITS | Encounter Summary ---
Author Organization [employer] Address [address] [place] [address] 7[address] [place] [address] Care Team Providers Care Lumber Sorter Machine Name Role Phone Mai Mcclain MD Primary Care Provider [phone] Reason for Visit * Reason Comments Med Refill Encounter Details Date Type Department Care Team ([facility] st Contact Info) Description 11/08/2022 Refill [facility] [address] [place], [place] [phone] Mai Mcclain MD [address] [place] [address] Social History Tobacco Use Types Packs/Day Years [...] documented as of this encounter Care Teams Lumber Sorter Machine Relationship Specialty Start Date End Date Mai Mcclain MD [address] [place] [phone] PCP - General Family Medicine 02/09/22 documented as of this encounter
--- OUTSIDE RECORDS SUMMARY | 2025-05-18 13:02 | XMS_ITS | Encounter Summary ---
Author Organization [employer] Address [address] [facility] [address] [place] [address] Care Team Providers Care Curtain Framer Name Role Phone Mai Mcclain MD Primary Care Provider [phone] Reason for Visit * Reason Comments Med Refill Encounter Details Date Type Department Care Team (Late st Contact Info) Description 02/21/2024 Refill [facility] [address] [place] [address] Destiny Vu MD [address] [place], [place] [phone] Social History Tobacco Use Types Packs/Day Years [...] documented as of this encounter Care Teams Curtain Framer Relationship Specialty Start Date End Date Mai Mcclain MD [address] [place] [address] PCP - General Family Medicine 02/09/22 documented as of this encounter
== END 2025-05-18 10:24 | disposition home or self-care (01) ==
LOC: HO.HWS 09:58
PROVIDERS: PCP Family Medicine; Visit Provider Obstetrics & Gynecology
DX: N93.0 Postcoital and contact bleeding (principal)
CPT/HCPCS: 99213